=== PATIENT | male | born 1975 | race Caucasian/White ===

== ENCOUNTER → 2022-03-03 16:02 | Outpatient (BNVA) | payer MEDICARE, MEDICAID, OTHER, SELFPAY | PROVIDERS: PCP Internal Medicine; Visit Provider Psychiatry & Neurology Psychiatry | DX: F33.9 Major depressive disorder, recurrent, unspecified (principal); F43.12 Post-traumatic stress disorder, chronic | CPT/HCPCS: 99212 ==

== ENCOUNTER → 2022-04-21 15:27 | Outpatient (BNVA) | payer MEDICARE, MEDICAID, SELFPAY | PROVIDERS: PCP Internal Medicine; Visit Provider Psychiatry & Neurology Psychiatry | DX: Z13.89 Encounter for screening for other disorder (principal) ==

== ENCOUNTER → 2022-05-13 16:09 | Outpatient (BNVA) | payer MEDICARE, MEDICAID, SELFPAY | PROVIDERS: PCP Internal Medicine; Visit Provider Psychiatry & Neurology Psychiatry | DX: F43.12 Post-traumatic stress disorder, chronic (principal); F33.9 Major depressive disorder, recurrent, unspecified | CPT/HCPCS: 90833; Q3014 ==

== ENCOUNTER → 2022-07-01 11:49 | Outpatient (BNVA) | payer MEDICARE, MEDICAID, SELFPAY | PROVIDERS: PCP Student in an Organized Health Care Education/Training Program; Visit Provider Psychiatry & Neurology Psychiatry | DX: F43.12 Post-traumatic stress disorder, chronic (principal); F33.9 Major depressive disorder, recurrent, unspecified; Z63.0 Problems in relationship with spouse or partner; Z86.73 Personal history of transient ischemic attack (TIA), and cerebral infarction without residual deficits; Z79.899 Other long term (current) drug therapy | CPT/HCPCS: Q3014 ==

== ENCOUNTER → 2022-08-06 12:40 | Outpatient (BNVA) | payer MEDICARE, MEDICAID, SELFPAY | PROVIDERS: PCP Student in an Organized Health Care Education/Training Program; Visit Provider Psychiatry & Neurology Psychiatry | DX: F43.12 Post-traumatic stress disorder, chronic (principal) | CPT/HCPCS: Q3014 ==

== ENCOUNTER → 2022-10-08 17:10 | Outpatient (BNVA) | payer MEDICARE, MEDICAID, SELFPAY | PROVIDERS: PCP Student in an Organized Health Care Education/Training Program; Visit Provider Psychiatry & Neurology Psychiatry | DX: F43.12 Post-traumatic stress disorder, chronic (principal); F33.9 Major depressive disorder, recurrent, unspecified | CPT/HCPCS: Q3014 ==

== ENCOUNTER 2022-11-25 17:44 | Outpatient (AMB) | payer MEDICARE, MEDICAID, SELFPAY ==
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
== END 2022-11-25 17:45 | disposition home or self-care (01) ==
LOC: HO.HOP 17:44
PROVIDERS: PCP Student in an Organized Health Care Education/Training Program; Visit Provider Psychiatry & Neurology Psychiatry
DX: F43.12 Post-traumatic stress disorder, chronic (principal); F33.9 Major depressive disorder, recurrent, unspecified
CPT/HCPCS: 90833; 99214

== ENCOUNTER → 2022-11-25 17:44 | Outpatient (BNVA) | payer MEDICARE, MEDICAID, SELFPAY | PROVIDERS: PCP Student in an Organized Health Care Education/Training Program; Visit Provider Psychiatry & Neurology Psychiatry | DX: F43.12 Post-traumatic stress disorder, chronic (principal); F33.9 Major depressive disorder, recurrent, unspecified | CPT/HCPCS: 90833; 99212 ==

== ENCOUNTER 2022-12-09 13:48 | Outpatient (AMB) | payer MEDICARE, MEDICAID, SELFPAY ==
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
== END 2022-12-09 14:00 | disposition home or self-care (01) ==
LOC: HO.HOP 13:49
PROVIDERS: PCP Student in an Organized Health Care Education/Training Program; Visit Provider Psychiatry & Neurology Psychiatry
DX: G89.0 Central pain syndrome (principal); F43.12 Post-traumatic stress disorder, chronic
CPT/HCPCS: 99213

== ENCOUNTER → 2022-12-09 13:48 | Outpatient (BNVA) | payer MEDICARE, MEDICAID, SELFPAY | PROVIDERS: PCP Student in an Organized Health Care Education/Training Program; Visit Provider Psychiatry & Neurology Psychiatry ==

== ENCOUNTER 2022-12-23 05:10 | Outpatient (REF) | payer MEDICARE, MEDICAID, SELFPAY ==
--- NOTE | ~2022-12-23 | XR_ITS ---
EXAMINATION: XR KNEE, RIGHT CLINICAL INFORMATION: Right knee pain COMPARISON: None available. TECHNIQUE: Frontal, lateral and patellar views of the right knee. FINDINGS: A surgical screw and clip transfix a healed fracture of the lateral tibial metaphyseal region. The knee joint is preserved. No acute fracture or subluxation is evident, and there are no significant erosive or proliferative changes. The patellofemoral joint is maintained. There is no significant knee joint effusion. XR/XR knee RT 3V IMPRESSION: 1. Prior surgical transfixation of the proximal lateral tibia. 2. No acute findings otherwise. In particular, there are no significant arthropathic changes in the right knee.
== END 2022-12-23 05:11 | disposition home or self-care (01) ==
LOC: HO.HOSX 05:10
PROVIDERS: Visit Provider Orthopaedic Surgery
DX: S83.241A Other tear of medial meniscus, current injury, right knee, initial encounter (principal); M54.50 Low back pain, unspecified
CPT/HCPCS: 73562; 99202

== ENCOUNTER 2022-12-23 15:00 | Outpatient (AMB) | payer MEDICARE, MEDICAID, SELFPAY ==
--- NOTE | 2022-12-23 15:03 | MHC.OFFVIS ---
Intake Intake Visit Reasons: Medical Diagnostic Radiographer- RT Knee pain Intake Note: Lenin is a 47 year old male who presents today as a new patient for a evaluation for his right knee pain and giving way. The patient describes his pain as sharp and severe in nature. He did injure his knee approximately 2 years ago. He twisted his knee and had acute onset of pain. Since that time his symptoms have gotten worse of continued operative treatments. He has had injections in the past which the minimal relief. He has also done physical therapy which aggravated his pain. The patient did suffer from a stroke which left him with very little function on his left side. He relies on his right leg to get around in a wheelchair. He has tried Tylenol, anti-inflammatory medicines and oxycodone which gave him minimal relief. He states that his right knee will give out several times per day. Allergies dabigatran etexilate Allergy (Intermediate, Verified 12/23/22 15:15) Cough lisinopril Allergy (Intermediate, Verified 12/23/22 15:15) Cough morphine [Morphine] Allergy (Intermediate, Verified 12/23/22 15:15) DIFF.URINATING/VISION PROBLEMS Medication List - Last Reconciled 12/24/22 by Ace Schuler MD amlodipine 5 mg PO DAILY clonazepam 1 mg PO BID duloxetine 60 mg PO DAILY duloxetine 30 mg PO DAILY ezetimibe 10 mg PO DAILY lamotrigine 150 mg PO BID 90 days metoprolol succinate ER 200 mg PO oxycodone 5 mg PO Q12H PRN pantoprazole 40 mg PO BID quetiapine 25 mg PO TID PRN rosuvastatin 40 mg PO DAILY tadalafil 5 mg PO DAILY PFSH Medical History Chronic post-traumatic stress disorder (PTSD) CVA (cerebral vascular accident) Major depression, recurrent, chronic Physical Exam Const Other: Well-nourished well-developed very friendly male awake alert and oriented x3 in no acute distress Extrem Other: Bilateral lower extremity examination shows good capillary refill, no skin lesions noted, normal sensation light touch Right knee examination shows a minimal effusion, mild crepitus with range of motion, tenderness along his medial joint line, positive Dandre's test, no instability Results Reviewed Results Reviewed: X-rays of the patient's right knee show mild diffuse joint space narrowing, no acute bony abnormalities Assessment & Plan Assessment & Plan (1) Low back pain: Code(s): M54.50 - Low back pain, unspecified (2) Tear of medial meniscus of right knee: Code(s): S83.241A - Other tear of medial meniscus, current injury, right knee, initial encounter Plan: Mr. Hardin presents with progressively worsening right knee pain and giving way due to early degenerative joint disease as well as a tear of his medial meniscus and possible tearing of his lateral meniscus. At this point he has failed continued non operative treatments. The risks and benefits of right knee arthroscopic surgery were discussed at length with the patient. The patient wishes to proceed with surgery. He does know that he might not get 100% relief of his symptoms depending on severity of his degenerative changes. He will contact my office to pick a surgery date. Surgery will most likely involve right knee diagnostic arthroscopy with partial medial meniscectomy and possible arthroscopic lateral meniscectomy. I did give the patient 1 prescription for oxycodone as per his request. I will also refer him to our pain management specialists for further evaluation of his chronic low back pain. The patient will follow-up as instructed. Feel free to call me at any time should questions regarding his orthopedic management arise. I spent 22 minutes in reviewing the patient's records and imaging studies, seeing the patient and documenting in the medical record. Orders: Orders XR knee RT 3V 12/23/22 M25.561 - Pain in right knee Referrals Pain Management Referral M54.50 - Low back pain, unspecified Medications: New oxycodone Partial Fill upon patient request. 5 mg PO Q12H PRN 10 tabs 0RF pain Coding Level of Care Code New Pt Level 2 (45960) Diagnoses Low back pain M54.50 Tear of medial meniscus of right knee S83.241A
== END 2022-12-23 15:39 | disposition home or self-care (01) ==
PROVIDERS: PCP Student in an Organized Health Care Education/Training Program; Visit Provider Orthopaedic Surgery
DX: M54.50 Low back pain, unspecified (principal); S83.241A Other tear of medial meniscus, current injury, right knee, initial encounter
CPT/HCPCS: 99202

== ENCOUNTER 2022-12-31 10:03 | Outpatient (AMB) | payer MEDICARE, MEDICAID, SELFPAY ==
--- NOTE | 2022-12-31 10:17 | A.OFFVIS_ITS ---
Intake Vital Signs 12/31/22 10:18 Height 6 ft Weight 265 lb BMI 35.9 BP 130/86 Blood Pressure Location Lt brachial Position Sitting Respiration 18 Pulse 89 Pulse Source Pulse Oximeter Pulse Oximetry (%) 96 Oxygen Delivery Method Room Air Intake Visit Reasons: LOW BACK PAIN Allergies dabigatran etexilate Allergy (Intermediate, Verified 12/31/22 10:11) Cough lisinopril Allergy (Intermediate, Verified 12/31/22 10:11) Cough HPI HPI Comments History of Present Illness Details Lenin is a very pleasant 47 year old male who presents to the office today for evaluation and management of his chronic right lower back pain. Patient was recently evaluated by ortho and sent here for his lower back pain. He is under care at [facility] for this lower back pain, received injections without relief. He was offered opioid contract that he is considering as nothing else is helping his pain. Patient was under the impression that he was referred here for opioid pain medications after recent ortho visit. Patient also reports right elbow and wrist pain, 11/09. 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 Due to this he has developed pain in the right elbow and wrist from wheelchair use. He has received cortisone injections to his elbow a couple months ago that did not help at all. He has completed PT and OT, taken NSAIDs all without relief. Patient has power chair at home but does not use because it's too heavy for him to get into his truck therefore he uses a regular wheelchair. Condition is described as aching, stabbing, shooting and sharp. Pain is constant, worse in evening and middle of the night. It is negatively impacting his enjoyment of life, general activity, normal work, sleep and overall mood. [facility] Medical History Chronic post-traumatic stress disorder (PTSD) CVA (cerebral vascular accident) Major depression, recurrent, chronic Review of Systems Const All systems reviewed & are unremarkable except as noted in HPI and below Physical Exam Vital Signs: Last Vital Signs Pulse 89 12/31/22 10:18 Resp 18 12/31/22 10:18 BP 130/86 12/31/22 10:18 Pulse Ox 96 12/31/22 10:18 Oxygen Delivery Method Room Air 12/31/22 10:18 BMI result Body Mass Index 35.9 General: awake, alert, oriented. Answers questions appropriately. Fully engaged in examination. Skin: warm, dry, intact HEENT: Bilateral hearing aides in place. Cardiac: External chest normal in appearance. Respiratory: No cough, audible wheezing or stridor. Neurological: Oriented to person, place, time and situation. Thought process intact. Psychiatric: Appropriate mood and affect. Back/Spine/Pelvis Other: Lumbar exam: Tenderness to palpation right lower back over QL. Limited exam, patient WC bound with left sided paralysis. 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 Discussed options for treatment of patients lower back pain, he is currently under care at [facility] for this pain and is considering signing an opiate contract. He has not found relief with injections and feels that the percocet he has received occasionally for pain is the only thing that has helped. Patient was advised that our chronic opioid program is currently closed. We discussed neuromodulation with SCS but patient declined. Lengthy discussion with patient that body mechanics of using a regular wheelchair are prohibiting his right arm and right lower back from healing. He is not able to use the left side and can't utilize motorized wheelchair. Patient with overuse of his right arm d/t paralysis of his left side. He has exhausted injections, PT and OT for his right arm and wrist pain. Discussed options for treatment of his central post-stroke pain (CPSP) including diagnostic interventional testing, steroid injections, peripheral nerve stimulation with Sprint, RFA and more permanent neuromodulation. Informational pamphlets provided. Patient was offered C5/6 SCS with [facility] for CPSP. Patient will review brochure and call the office if he would like to proceed with trial. He was given pamphlet for SCS and [facility] for pre implant psych eval. Recent studies have shown the benefit for SCS for CPSP: Benefit of spinal cord stimulation for patients with central poststroke pain: a retrospective multicenter study https://pubmed.ncbi.nlm.nih.gov/70054268/ All questions and concerns have been answered and patient agrees with the plan. Patient will call the office if he wishes to proceed with SCS. Coding Level of Care Code New Pt Level 4 (22593) Diagnoses Right knee pain M25.561 Myofascial low back pain M54.50 Tendonitis of elbow, right M77.8 Central pain syndrome G89.0
[2022-12-31 10:18] VITALS: BP 130/86; PULSE 89; RESP 18; O2SAT 96; BMI 35.9
== END 2022-12-31 11:16 | disposition home or self-care (01) ==
PROVIDERS: PCP Student in an Organized Health Care Education/Training Program; Visit Provider Registered Nurse Emergency
DX: M25.561 Pain in right knee (principal); M54.50 Low back pain, unspecified; M77.8 Other enthesopathies, not elsewhere classified; G89.0 Central pain syndrome
CPT/HCPCS: 99204

== ENCOUNTER → 2022-12-31 10:03 | Outpatient (BNVA) | payer MEDICARE, MEDICAID, SELFPAY | PROVIDERS: PCP Student in an Organized Health Care Education/Training Program; Visit Provider Registered Nurse Emergency | DX: G89.0 Central pain syndrome (principal); M25.561 Pain in right knee; M54.50 Low back pain, unspecified; M77.8 Other enthesopathies, not elsewhere classified | CPT/HCPCS: 99202 ==

== ENCOUNTER 2023-01-12 13:49 | Outpatient (AMB) | payer MEDICARE, MEDICAID, SELFPAY ==
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
== END 2023-01-12 16:23 | disposition home or self-care (01) ==
LOC: HO.HOP 13:49
PROVIDERS: PCP Student in an Organized Health Care Education/Training Program; Visit Provider Psychiatry & Neurology Psychiatry
DX: F43.12 Post-traumatic stress disorder, chronic (principal); F33.1 Major depressive disorder, recurrent, moderate
CPT/HCPCS: 99213

== ENCOUNTER → 2023-01-12 13:49 | Outpatient (BNVA) | payer MEDICARE, MEDICAID, SELFPAY | PROVIDERS: PCP Student in an Organized Health Care Education/Training Program; Visit Provider Psychiatry & Neurology Psychiatry ==

== ENCOUNTER 2023-01-22 05:59 | Day surgery (SDC) | payer MEDICARE, MEDICAID, SELFPAY ==
[2023-01-20 10:48] VITALS: BMI 35.9
--- NOTE | 2023-01-20 14:16 | HO.ANESPROP2 ---
Documented by User: Jeanne Monroy NP 01/21/23 13:10 HPI - Anesthesia Eval Consult details Narrative: 47yo M for Right Knee Arthroscopy, partial menial minosectomy, possible lateral minosectomy DNR Hx CVA - W/C bound, Left sided hemiparesis/muscle spacicity (Baclofen pump) Follows cardiology: Afib (eliquis held). Cardiomyopathy. HTN. Ozempic - last dose 01/17/23 - Rev'd with Dr Jimena LI Active Problems Active Problems: All Active Problems (Updated 01/20/23 @ 11:22 by Dariana Cloud RN) Central pain syndrome (Acute) Tendonitis of elbow, right (Acute) Myofascial low back pain (Acute) Tear of medial meniscus of right knee (Acute) Low back pain (Acute) Right knee pain (Acute) Chronic post-traumatic stress disorder (PTSD) (Acute) Major depression, recurrent, chronic (Acute) Past Medical History Medical History (Updated 01/20/23 @ 11:22 by Dariana Cloud RN) Elevated cholesterol CAD (coronary artery disease) Cerebral embolism Alcohol dependence in remission Cardiomyopathy DVT (deep venous thrombosis) Muscle spasticity Central pain syndrome HTN (hypertension) Atrial fibrillation Sleep apnea Chronic post-traumatic stress disorder (PTSD) Major depression, recurrent, chronic CVA (cerebral vascular accident) Surgical History Surgical History (Updated 01/20/23 @ 11:22 by Dariana Cloud RN) Hx of cardiac catheterization H/O colonoscopy History of carpal tunnel release Hx of nasal septoplasty History of back surgery Social History Social History Are you a primary direct care worker to a significant other at home: No Do you presently have visiting nurse or other home services: No Patient Tobacco Use Status: Former Tobacco user Quit Date: 2019 Tobacco use type: Cigarette Meds Allergies Allergy/AdvReac Type Severity Reaction Status Date / Time dabigatran etexilate Allergy Intermediate Cough Verified 12/31/22 10:11 lisinopril Allergy Intermediate Cough Verified 12/31/22 10:11 Home Medications Medication Instructions Recorded Confirmed Last Taken Type amlodipine 5 mg tablet 5 mg PO DAILY 03/03/22 01/20/23 Unknown History pantoprazole 40 mg tablet,delayed 40 mg PO BID 03/03/22 01/20/23 Unknown History release rosuvastatin 40 mg tablet 40 mg PO DAILY 03/03/22 01/20/23 Unknown History tadalafil 5 mg tablet 5 mg PO DAILY 03/03/22 01/20/23 Unknown History duloxetine 60 mg capsule,delayed 60 mg PO QAM 10/30/22 01/20/23 Unknown History release apixaban 5 mg tablet (Eliquis) 5 mg PO BID 01/20/23 01/20/23 Unknown History duloxetine 30 mg capsule,delayed 30 mg PO QPM 01/20/23 01/20/23 Unknown History release furosemide 20 mg tablet 40 mg PO DAILY 01/20/23 01/20/23 Unknown History metoprolol succinate 200 mg 200 mg PO DAILY 01/20/23 01/20/23 Unknown History tablet,extended release 24 hr semaglutide 0.25 mg or 0.5 mg (2 0.25 mg subcut QWEEK 01/20/23 01/20/23 01/17/23 History mg/3 mL) subcutaneous pen injector (Ozempic) Exam Exam Date and Time: January 20, 2023 1416 Height,Weight and Vital Signs: Height 6 ft Weight 120.202 kg Pertinent Lab Results Pertinent Lab Results: 12/2022 CBC and BMP from outside facility WNL BNP elevated at 532 Narrative Narrative: EKG 08/2022 Afib @ 87 Cardiac cath 08/2022 (false + nuc stress) Right dominant coronary circulation Mild RCA ds Minimal LAD ds Minimal Left circumflex ds Mild CAD ECHO 2020 LA mildly dilated Mild MR Mild dilation of asc aorta @ 38mm in tubular section LV size is nml LV wall thickness is nml LV systolic function mildly reduced LVEF 45-50% Hypokinesis of basal and mid inferoseptal and basal to mid inferior wall Unable to assess diastolic function d/t afib. Assessment and Plan Assessment Anesthesia Assessment: Chart Reviewed Documented by User: Devin Kessler MD 01/21/23 19:08 [facility] Past Medical History Medical History (Updated 01/20/23 @ 11:22 by Dariana Cloud RN) Elevated cholesterol CAD (coronary artery disease) Cerebral embolism Alcohol dependence in remission Cardiomyopathy DVT (deep venous thrombosis) Muscle spasticity Central pain syndrome HTN (hypertension) Atrial fibrillation Sleep apnea Chronic post-traumatic stress disorder (PTSD) Major depression, recurrent, chronic CVA (cerebral vascular accident) Family History Family history of problems with anesthesia: No Surgical History Surgical History (Updated 01/20/23 @ 11:22 by Dariana Cloud RN) Hx of cardiac catheterization H/O colonoscopy History of carpal tunnel release Hx of nasal septoplasty History of back surgery History of Problems with Anesthesia: No Social History Social History Are you a primary direct care worker to a significant other at home: No Do you presently have visiting nurse or other home services: No Patient Tobacco Use Status: Former Tobacco user Quit Date: 2019 Tobacco use type: Cigarette Meds Allergies Allergy/AdvReac Type Severity Reaction Status Date / Time dabigatran etexilate Allergy Intermediate Cough Verified 12/31/22 10:11 lisinopril Allergy Intermediate Cough Verified 12/31/22 10:11 Home Medications Medication Instructions Recorded Confirmed Last Taken Type amlodipine 5 mg tablet 5 mg PO DAILY 03/03/22 01/20/23 Unknown History pantoprazole 40 mg tablet,delayed 40 mg PO BID 03/03/22 01/20/23 Unknown History release rosuvastatin 40 mg tablet 40 mg PO DAILY 03/03/22 01/20/23 Unknown History tadalafil 5 mg tablet 5 mg PO DAILY 03/03/22 01/20/23 Unknown History duloxetine 60 mg capsule,delayed 60 mg PO QAM 10/30/22 01/20/23 Unknown History release apixaban 5 mg tablet (Eliquis) 5 mg PO BID 01/20/23 01/20/23 Unknown History duloxetine 30 mg capsule,delayed 30 mg PO QPM 01/20/23 01/20/23 Unknown History release furosemide 20 mg tablet 40 mg PO DAILY 01/20/23 01/20/23 Unknown History metoprolol succinate 200 mg 200 mg PO DAILY 01/20/23 01/20/23 Unknown History tablet,extended release 24 hr semaglutide 0.25 mg or 0.5 mg (2 0.25 mg subcut QWEEK 01/20/23 01/20/23 01/17/23 History mg/3 mL) subcutaneous pen injector (Ozempic) Exam Airway Mallampati Class: III TM Dist: >3cm Neck ROM: Limited Heart: irreg Lungs: cta Assessment and Plan Assessment Anesthesia Assessment: Anesthesia Plan Discussed Final Anesthetic Review Family History of Problems with Anesthesia: No History of Problems with Anesthesia: No NPO: Yes ASA Class: IV Final Preanesthetic Review: No Changes in Pt Med Stat, Meds/Allgs Chart Reviewed, Consent Obtained/Reviewed and Anes Risks/Benef Reviewed Patient Risk: High Procedure Risk: Intermediate Anesthetic Plan Anesthetic Plan: GA Disposition: Standard PACU
[2023-01-22] VITALS (8 sets, daily range): BP systolic 111–123; BP diastolic 61–74; PULSE 85–114; RESP 16–18; TEMP 36.4–37.5; O2SAT 90–95
[2023-01-22] MEDS: Lactated Ringers 1,000 ML 50 ML IVCONT (06:43)
--- NOTE | 2023-01-22 08:52 | PM.OP ---
Brief Operative Note Date of Service: 01/22/23 Pre-op diagnosis: Right knee medial meniscus tear, right knee lateral meniscus tear, right knee degenerative joint disease, right knee plica syndrome Post-op diagnosis: same Procedure: Right knee diagnostic arthroscopy with right knee arthroscopic partial medial and lateral meniscectomies, right knee arthroscopic chondroplasty of the undersurface of the patella as well as the medial femoral condyle, right knee arthroscopic plica excision Implants: none Surgeon: Ace Schuler MD Anesthesia: GLMA Was an Cell Room Operator used for this Procedure?: No Estimated blood loss (mL): 10 Pathology: none sent Condition: stable Disposition: PACU
[2023-01-22] MEDS: HYDROmorphone HCl 0.5 MG/0.5 ML SYRINGE 0.25 MG IVPUSH ×2 (08:53→08:58)
--- NOTE | 2023-01-22 08:54 | PM.PNORT ---
Subjective Subjective Date of Service: 02/23/23 Physical Exam Vital Signs: Vital Signs: Last Vital Signs Temp 97.6 F 01/22/23 06:27 Pulse 85 01/22/23 06:27 Resp 16 01/22/23 06:27 BP 119/68 01/22/23 06:27 Pulse Ox 93 01/22/23 06:27 O2 Del Method Room Air 01/22/23 06:27 BMI result Body Mass Index 35.9 Procedures Date of Service Date of Service: 02/23/23 Progress Note: A&P Time Spent With Patient Time: Total time managing care of this patient today ____ minutes. Quality Stroke Does the patient have a stroke diagnosis?: No VTE Prior VTE?: No VTE Risk Level:: Surgical - low VTE Device Contraindication: Treatment Not Indicated VTE Drug Contraindication: Treatment Not Indicated
--- NOTE | 2023-01-22 08:55 | W.PM.OPN ---
Operative Note Operative Note Date of Service: 01/22/23 Narrative: After the patient was identified as Lenin Hardin and their right knee was initialed by myself they were brought to the operating room where general anesthesia was induced by the anesthesiologist in routine fashion. The patient was given 2 g of IV Ancef for infection prophylaxis. A formal time-out was completed. The patient's right lower extremity was prepped and draped in sterile fashion. Marcaine with epinephrine was injected into the planned incision sites as well as their left knee joint. A # 11 scalpel blade was used to make an anterolateral portal 1 cm proximal to the joint line and 1 cm lateral to the patellar tendon. Blunt trocar technique was used into the suprapatellar pouch with the knee in extension. Diagnostic arthroscopy showed multiple bands of thickened plica which would be excised at the end of the procedure. There were no loose bodies or abnormalities found in either the medial or lateral gutters. There were diffuse grade 2 degenerative changes of the undersurface of the patella as well as grade 1 degenerative changes of the trochlear groove. The patient's knee was flexed to 45 degrees and a valgus force was placed upon it. The medial compartment was entered. An anteromedial portal was made 1 cm proximal to the joint line and 1 cm medial to the patellar tendon. Probing of the medial meniscus showed a radial tear of the posterior horn. A partial medial meniscectomy was performed using the arthroscopic shaver. Following the partial meniscectomy the remainder of the meniscus tissue was stable. There were diffuse grades 2 and 3 degenerative changes of the medial femoral condyle as well as diffuse grades bone degenerative changes of the medial tibial plateau. The articular surface of the medial femoral condyle was made smooth using the arthroscopic shaver. The articular surface of the medial tibial plateau was already smooth so no chondroplasty was indicated. The patient's knee was then placed into a neutral position. There was no injury to the anterior cruciate ligament. The patient's knee was then placed into the figure of 4 position and the lateral compartment was entered. There were minimal degenerative changes of the lateral femoral condyle and lateral tibial plateau. There was a radial tear of the anterior horn of the lateral meniscus. Thus, a partial lateral meniscectomy was performed using the arthroscopic shaver. Following the partial meniscectomy the remainder of the meniscus tissue was stable. The patient's knee was once again brought into extension and the suprapatellar pouch was entered. The arthroscopic shaver and the ArthroCare Wand were used to excise the thickened bands of plica. The undersurface of the patella was then made smooth using the arthroscopic shaver. The articular surface of the trochlear groove was already smooth so no chondroplasty was indicated. The knee joint was irrigated and then drained. All arthroscopic instruments were removed. The 2 portals were closed with 3-0 nylon interrupted suture. The knee joint was injected with Marcaine. Dry sterile dressing and Jayden bandages were placed over the patient's knee. The patient was woken and expand the operating room. They were transferred to the recovery room in stable condition.
[2023-01-22] MEDS: cefTRIAXone sodium 1 GM in 0.9 % Sodium Chloride 50 ML IV (09:00)
[2023-01-22] MEDS: oxyCODONE HCl Immed Release 5 MG TABLET PO (09:33)
== END 2023-01-22 09:55 | disposition home or self-care (01) ==
PROVIDERS: PCP Student in an Organized Health Care Education/Training Program; Visit Provider Orthopaedic Surgery
PROC: (CPT 29870; principal; 2023-01-22 07:30)
DX: S83.241A Other tear of medial meniscus, current injury, right knee, initial encounter (principal); S83.281A Other tear of lateral meniscus, current injury, right knee, initial encounter; M25.561 Pain in right knee; M17.11 Unilateral primary osteoarthritis, right knee; M67.51 Plica syndrome, right knee; W50.2XXA Accidental twist by another person, initial encounter; Y93.9 Activity, unspecified; Y92.9 Unspecified place or not applicable; Y99.8 Other external cause status; I69.354 Hemiplegia and hemiparesis following cerebral infarction affecting left non-dominant side; I42.9 Cardiomyopathy, unspecified; I10 Essential (primary) hypertension; I48.91 Unspecified atrial fibrillation; F43.10 Post-traumatic stress disorder, unspecified; M54.50 Low back pain, unspecified; F32.9 Major depressive disorder, single episode, unspecified; G47.33 Obstructive sleep apnea (adult) (pediatric); Z99.3 Dependence on wheelchair; Z87.891 Personal history of nicotine dependence; Z88.8 Allergy status to other drugs, medicaments and biological substances; Z88.5 Allergy status to narcotic agent; Z79.01 Long term (current) use of anticoagulants; Z79.899 Other long term (current) drug therapy
CPT/HCPCS: 29880; J0131; J0171; J0690; J0696; J1100; J1170; J1885; J2371; J2405; J2795

== ENCOUNTER → 2023-01-22 05:59 | Outpatient (BNV) | payer MEDICARE, MEDICAID, SELFPAY | PROVIDERS: PCP Student in an Organized Health Care Education/Training Program; Visit Provider Orthopaedic Surgery | DX: Z48.89 Encounter for other specified surgical aftercare (principal) | CPT/HCPCS: 29880; 99024 ==

== ENCOUNTER 2023-02-04 09:33 | Outpatient (AMB) | payer MEDICARE, MEDICAID, SELFPAY ==
--- NOTE | 2023-02-04 09:41 | MHC.OFFVIS ---
Intake Intake Visit Reasons: PO-Rt Knee Arthroscopy 01/22/23 Intake Note: Lenin a 47 year old male who presents today in a wheelchair for a post operative visit s/p right knee , DOS 01/22/23 Patient reports constant pain, with a pain level 8 out 10. States a lot of bleeding in the beginning but has subsided. Allergies dabigatran etexilate Allergy (Intermediate, Verified 02/04/23 09:48) Cough lisinopril Allergy (Intermediate, Verified 02/04/23 09:48) Cough HPI PO-Rt Knee Arthroscopy 01/22/23 HPI Details 47-year-old male who returns to the office today in a wheelchair for post-op right knee , 01/22/[address] Schuler. He states he has constant pain and rates the pain as 8 on the scale of 0-10. He also c/o a lot of bleeding in the beginning but has now subsided. He is doing well otherwise and has no other concerns. [facility] Medical History Elevated cholesterol CAD (coronary artery disease) Cerebral embolism Alcohol dependence in remission Cardiomyopathy DVT (deep venous thrombosis) Muscle spasticity Central pain syndrome HTN (hypertension) Atrial fibrillation Sleep apnea Chronic post-traumatic stress disorder (PTSD) Major depression, recurrent, chronic CVA (cerebral vascular accident) Surgical History Hx of cardiac catheterization H/O colonoscopy History of carpal tunnel release Hx of nasal septoplasty History of back surgery Social History Are you a primary customer care specialist to a significant other at home: No Do you presently have visiting nurse or other home services: No Patient Tobacco Use Status: Former Tobacco user Quit Date: 2019 Tobacco use type: Cigarette Review of Systems Const All systems reviewed & are unremarkable except as noted in HPI and below Physical Exam Extrem Other: Right knee: Incision clean, dry and intact. No erythema or joint effusion. Rom 0-100 degrees. Calf supple, nontender. NVI. Assessment & Plan Assessment & Plan (1) H/O arthroscopy of right knee: Code(s): Z98.890 - Other specified postprocedural states Plan Sutures removed today, steri strips applied. He will work on some home exercises to maintain his motion and activate his quad function. He is unable to take anti-inflammatories such as ibuprofen because he is on Eliquis. I did recommend Celebrex however he states he has tried it in the past with no relief. I did offer him a compound cream which we will submit authorization for. He did also request a prescription for refilled oxycodone which I agreed to refill this 1 tab twice a day which will be a one-time prescription and explained to him the wean process which he is content with. He will return to see us back in [address] Schuler for his routine post-op appointment. Medications: Changed From oxycodone Partial Fill upon patient request. 5 mg PO Q6H PRN 20 tabs 0RF pain Z98.890 - Other specified postprocedural states To oxycodone Partial Fill upon patient request. 5 mg PO Q12H PRN 14 tabs 0RF pain 7 days Z98.890 - Other specified postprocedural states Patient Instructions: Scribed for Sid Boles PA-C, by Mat Torrez medical transcription supervisor, on 02/04/2023 at 9:30 AM EST. I, Sid Boles PA-C, have personally reviewed and agree with the information entered by the scribe. Coding Level of Care Code Global (35511) Diagnoses H/O arthroscopy of right knee Z98.890
== END 2023-02-04 10:16 | disposition home or self-care (01) ==
PROVIDERS: PCP Student in an Organized Health Care Education/Training Program; Visit Provider Physician Assistant
DX: Z98.890 Other specified postprocedural states (principal)
CPT/HCPCS: 99024

== ENCOUNTER → 2023-02-04 09:33 | Outpatient (BNVA) | payer MEDICARE, MEDICAID, SELFPAY | PROVIDERS: PCP Student in an Organized Health Care Education/Training Program; Visit Provider Physician Assistant ==

== ENCOUNTER 2023-02-24 12:22 | Outpatient (AMB) | payer MEDICARE, MEDICAID, SELFPAY ==
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
== END 2023-02-24 16:16 | disposition home or self-care (01) ==
LOC: HO.HOP 12:22
PROVIDERS: PCP Student in an Organized Health Care Education/Training Program; Visit Provider Psychiatry & Neurology Psychiatry
DX: F33.1 Major depressive disorder, recurrent, moderate (principal); F43.12 Post-traumatic stress disorder, chronic
CPT/HCPCS: 99213

== ENCOUNTER → 2023-02-24 12:22 | Outpatient (BNVA) | payer MEDICARE, MEDICAID, SELFPAY | PROVIDERS: PCP Student in an Organized Health Care Education/Training Program; Visit Provider Psychiatry & Neurology Psychiatry ==

== ENCOUNTER 2023-03-04 10:11 | Outpatient (AMB) | payer MEDICARE, MEDICAID, SELFPAY ==
--- NOTE | 2023-03-04 10:13 | MHC.OFFVIS ---
Intake Intake Visit Reasons: PO-Rt Knee Arthroscopy 01/22/23 Intake Note: This is a 47 year old patient who presents for a follow up for his right knee arthrocscopy on 01/22/23. Patient reports mild to moderate discomfort in his right knee. He denies any fevers or chills. Allergies dabigatran etexilate Allergy (Intermediate, Verified 03/04/23 10:17) Cough lisinopril Allergy (Intermediate, Verified 03/04/23 10:17) Cough Medication List - Last Reconciled 03/04/23 by Tati Villatoro RN amlodipine 5 mg PO DAILY apixaban (Eliquis) 5 mg PO BID clonazepam 1 mg PO BID duloxetine 60 mg PO QAM duloxetine 20 mg PO DAILY ezetimibe 10 mg PO DAILY furosemide 40 mg PO DAILY hydroxyzine HCl 25 mg PO BEDTIME PRN lamotrigine 150 mg PO BID 90 days metoprolol succinate ER 200 mg PO DAILY oxycodone 5 mg PO Q12H PRN 7 days pantoprazole 40 mg PO BID rosuvastatin 40 mg PO DAILY semaglutide (Ozempic) 0.25 mg subcut QWEEK tadalafil 5 mg PO DAILY PFSH Medical History (Updated 03/04/23 @ 10:41 by Ace Schuler MD) Elevated cholesterol CAD (coronary artery disease) Cerebral embolism Alcohol dependence in remission Cardiomyopathy DVT (deep venous thrombosis) Muscle spasticity Central pain syndrome HTN (hypertension) Atrial fibrillation Sleep apnea Chronic post-traumatic stress disorder (PTSD) Major depression, recurrent, chronic CVA (cerebral vascular accident) Surgical History Hx of cardiac catheterization H/O colonoscopy History of carpal tunnel release Hx of nasal septoplasty History of back surgery Social History Are you a primary child care associate teacher to a significant other at home: No Do you presently have visiting nurse or other home services: No Patient Tobacco Use Status: Former Tobacco user Quit Date: 2019 Tobacco use type: Cigarette Physical Exam Extrem Other: Right knee examination shows that the surgical incisions are well healed, no erythema, mild crepitus with range of motion, no instability Assessment & Plan Assessment & Plan (1) Arthritis of right knee: Code(s): M17.11 - Unilateral primary osteoarthritis, right knee Plan Mr. Hardin is doing fairly well after undergoing right knee arthroscopic surgery on 01/22/2023. He does have residual discomfort due to degenerative joint disease. The patient will continue activities as tolerated. He will contact me prior to his follow-up appointment in 2-3 months should any questions or concerns arise. Feel free to call me at any time should questions regarding his orthopedic management arise. Coding Level of Care Code Global (90175) Diagnoses Arthritis of right knee M17.11
== END 2023-03-04 10:40 | disposition home or self-care (01) ==
PROVIDERS: PCP Student in an Organized Health Care Education/Training Program; Visit Provider Orthopaedic Surgery
DX: M17.11 Unilateral primary osteoarthritis, right knee (principal)
CPT/HCPCS: 99024

== ENCOUNTER → 2023-03-04 10:11 | Outpatient (BNVA) | payer MEDICARE, MEDICAID, SELFPAY | PROVIDERS: PCP Student in an Organized Health Care Education/Training Program; Visit Provider Orthopaedic Surgery ==

== ENCOUNTER 2023-04-06 11:54 | Outpatient (AMB) | payer MEDICARE, MEDICAID, SELFPAY ==
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
== END 2023-04-06 12:26 | disposition home or self-care (01) ==
LOC: HO.HOP 11:54
PROVIDERS: PCP Student in an Organized Health Care Education/Training Program; Visit Provider Psychiatry & Neurology Psychiatry
DX: F33.1 Major depressive disorder, recurrent, moderate (principal); F43.12 Post-traumatic stress disorder, chronic
CPT/HCPCS: 99213

== ENCOUNTER → 2023-04-06 11:54 | Outpatient (BNVA) | payer MEDICARE, MEDICAID, SELFPAY | PROVIDERS: PCP Student in an Organized Health Care Education/Training Program; Visit Provider Psychiatry & Neurology Psychiatry | DX: F43.12 Post-traumatic stress disorder, chronic (principal); F33.9 Major depressive disorder, recurrent, unspecified | CPT/HCPCS: 99212 ==

== ENCOUNTER 2023-05-11 09:01 | Outpatient (AMB) | payer MEDICARE, MEDICAID, SELFPAY ==
--- NOTE | 2023-05-11 09:09 | MHC.OFFVIS ---
Intake Vital Signs 05/11/23 09:19 Height 6 ft Weight 245 lb BMI 33.2 Intake Visit Reasons: Newprob-Right wrist pain Intake Note: Lenin 47 yr old male presents today for a new problem visit for his right wrist pain. States his pain is mainly on his dorsum aspect of wrist. Reports this started approx around 10 years ago due to over use of wrist. States he also has on and off numbness & tingling Denies injury. Also states he has right elbow pain and would like an injection. hx of elbow injection about 1 year ago with no improvement. Hx of brain aneurysm on his left side. Allergies dabigatran etexilate Allergy (Intermediate, Verified 05/11/23 09:10) Cough lisinopril Allergy (Intermediate, Verified 05/11/23 09:10) Cough HPI Newprob-Right wrist pain HPI Details Migue is a 47 year old right hand dominant man who presents with complaints of right wrist & elbow pain. He is seen today in a wheelchair. He reports pain with use of his right arm, worse at night. He says his wrist pain is primarily in the back of his wrist. He has a hx of a brain aneurysm in 2012, resulting in LUE paralysis & LLE weakness, and he says his pain has been present since his injury due to overuse of his arm in his wheelchair. He found no relief from PT, OT, or NSAIDs, and no relief from an elbow steroid injection at an outside clinic ~1 year ago. He also complains of numbness in the right median nerve distribution, and normal sensation to the small finger. He has a hx of right carpal & cubital tunnel releases in 04/2022 at an outside clinic, which he says improved his nighttime symptoms but he continues to have constant numbness. He is on Eliquis and Ozempic. He denies any Diabetes, and has a hx of CAD & Afib. He has no voluntary motion of his left arm. [facility] Medical History (Updated 05/11/23 @ 10:12 by Luther Mane) Elevated cholesterol CAD (coronary artery disease) Cerebral embolism Alcohol dependence in remission Cardiomyopathy DVT (deep venous thrombosis) Muscle spasticity Central pain syndrome HTN (hypertension) Atrial fibrillation Sleep apnea Chronic post-traumatic stress disorder (PTSD) Major depression, recurrent, chronic CVA (cerebral vascular accident) Surgical History Hx of cardiac catheterization H/O colonoscopy History of carpal tunnel release Hx of nasal septoplasty History of back surgery Social History (Updated 05/11/23 @ 09:19 by JANE Antunez) Are you a primary director medicare sales to a significant other at home: No Do you presently have visiting nurse or other home services: No Patient Tobacco Use Status: Former Tobacco user Quit Date: 2019 Tobacco use type: Cigarette Current occupational status: disabled Current occupation: rt hand dominant Review of Systems Const All systems reviewed & are unremarkable except as noted in HPI and below Physical Exam Vital Signs: BMI result Body Mass Index 33.2 Const General: cooperative, healthy appearing and no acute distress Orientation/consciousness: patient oriented x3 HEENT Head: Yes normocephalic and Yes atraumatic Eyes EOM: EOMs intact bilaterally Resp Effort & Inspection: normal respiratory effort and able to speak in complete sentences Cardio Jugular venous distension: no JVD Skin General skin exam: turgor normal Rashes: no rashes Neuro General: patient oriented x3 Extrem Other: Evaluation of Right Upper Extremity: The patient is alert, oriented, and in no acute distress He is seen today with his LUE held with his elbow flexed and arm against body, no use even as a helper hand. He denies any voluntary motion of his left hand. Neuro: Dense numbness in the median nerve distribution. Normal sensation in the ulnar nerve distribution Good ABP muscle belly firing, no thenar or intrinsic atrophy Good finger cross Healed carpal tunnel scar across his palm Vascular: Cap refill brisk ROM: He can make a fist and extend all his digits No locking or catching No a1 hawa tenderness No tenderness about the thumb IP, MCP, or CMC joints No tenderness over the 1st dorsal compartment On examination, he did not identify any place of particular tenderness, his main complaint is of pain in the dorsal central aspect of his wrist He has some generalized arthritic changes in the IP joints of his right hand Skin: No lacerations or abrasions. General: No Ecchymosis. No wrist swelling or effusion or warmth No Erythema or evidence of infection. Not particularly painful with resisted extension of all of the fingers. Mildly painful with resisted extension of the thumb but this was more radially and not over the dorsal central aspect of the wrist where he saying most of his pain resides. He did have some wrist discomfort with resisted wrist extension, however the ECRL and ECRB tendons were nontender as was the ECU tendon and his discomfort was again over the dorsal central aspect of the wrist in line with the finger extensors Again most tender over the dorsal central aspect of the wrist directly over the finger extensors. He did have some tenderness a little more proximally over the distal aspect of the distal radius but another cm proximally and he had no tenderness so it is not clear whether this is actually and inflammation of the finger extensors, or perhaps the wrist joint. With regards to the joint he was not particularly tender however over the more radial aspect of the wrist joint at the radioscaphoid joint near the radial styloid where we saw some of his arthritis radiographically. No tenderness at all over the dorsal ulnar or volar aspect of the ulnocarpal joint No tenderness in the fovea and no tenderness over the DRUJ which was stable. Radiographs: 3 views of the right wrist were taken and viewed by me today in clinic. They show no fractures or dislocations. He has some radial carpal arthritis with some peaking of the radial styloid and some chondrocalcinosis also seen in that area. Psych Appearance: grossly normal Affect: normal affect Attitude: cooperative Office Procedures Fracture Care Details: No fracture, injection Fracture Billing Code: Fracture Billing Code Assessment & Plan Assessment & Plan (1) Chronic post-traumatic stress disorder (PTSD): Code(s): F43.12 - Post-traumatic stress disorder, chronic (2) History of cerebral embolism: Code(s): Z86.79 - Personal history of other diseases of the circulatory system (3) Chronic pain of right wrist: Code(s): M25.531 - Pain in right wrist; G89.29 - Other chronic pain Plan Assessment & Plan: 1. Right dorsal central wrist pain, Possibly related to wrist & finger extensor tendinitis vs inflammation in the wrist joint This is a patient who has no function of his left upper extremity secondary to a brain aneurysm. He is also in a wheelchair and has to use his right upper extremity to manipulate the wheelchair I educated him about this condition I discussed operative and non-operative treatment options The patient would like to proceed with an injection today I discussed activity modification & icing, he should try and rest his wrist when possible, but this is unlikely as he is in a wheelchair and he has no use of his LUE. Injection #1: The risks and benefits of a steroid injection including but not limited to risk of damage to blood vessels, nerves, tendons, infection, skin bleaching, failure to improve symptoms, increased pain, and possible need for further injections or other intervention were discussed with the patient and the patient wishes to proceed with the steroid injection. Once consent was obtained, I sterilely prepped the area over the dorsal aspect of his left wrist. I then injected about the 4th dorsal compartment tendons with a combination of 1 mL of dexamethasone (4mg/ml), and 2mL Bupivacaine. I did not go into the wrist joint itself. The patient tolerated the procedure well with no complications and good resolution of their symptoms prior to leaving clinic. Based on the success of improvement in his symptoms I do not think it is the wrist joint that is causing his problems. I think it is most likely a tendinitis, and most likely of the 4th dorsal compartment tendons. We cannot give him a brace because he really can not put or take it off. He evidently is involved in multiple projects at home. I talked about the importance of activity modification and perhaps modifying his activities around these projects so that he does not overdo it. I explained to be difficult for him to get over his tendinitis if he does not change some things, and pointed out that is important that he is able to use his right hand take care of himself because he does not have a helper hand. Please note that greater than 40 minutes was spent with this patient going over the history, evaluating the patient and radiographs, formulating possible treatment options, discussing them with the patient, and documenting the visit. Scribed for Kalli Armando MD by Luther Mane, medical office technologist, on 05/11/23 at 9:30 AM, EST. Orders: Orders XR wrist RT w scaphoid Today M25.531 - Pain in right wrist Coding Level of Care Code New Pt Level 4 (37115) Diagnoses Chronic post-traumatic stress disorder (PTSD) F43.12 History of cerebral embolism Z86.79 Chronic pain of right wrist M25.531; G89.29 CPT Codes Fracture Care - Fracture Billing Code: Fracture Billing Code ([id number])
[2023-05-11 09:19] VITALS: BMI 33.2
== END 2023-05-11 10:28 | disposition home or self-care (01) ==
PROVIDERS: PCP Student in an Organized Health Care Education/Training Program; Visit Provider Orthopaedic Surgery
DX: M25.531 Pain in right wrist (principal); M25.521 Pain in right elbow; G89.29 Other chronic pain; F43.12 Post-traumatic stress disorder, chronic; Z86.79 Personal history of other diseases of the circulatory system
CPT/HCPCS: 20550; 99215

== ENCOUNTER 2023-05-11 09:01 | Outpatient (REF) | payer MEDICARE, MEDICAID, SELFPAY ==
--- NOTE | ~2023-05-11 | XR_ITS ---
EXAMINATION: XR WRIST, RIGHT CLINICAL INFORMATION: Pain. COMPARISON: None available. TECHNIQUE: PA, lateral, and oblique views of the right wrist. FINDINGS: The bones and soft tissues are normal. No fracture. A small well-corticated benign cyst is incidentally noted within the distal scaphoid. Alignment is anatomic with normal joint spaces. No erosions or abnormal soft tissue calcifications. XR/XR wrist RT w scaphoid IMPRESSION: Unremarkable right wrist.
== END 2023-05-11 09:02 | disposition home or self-care (01) ==
LOC: HO.HOSX 09:01
PROVIDERS: PCP Student in an Organized Health Care Education/Training Program; Visit Provider Orthopaedic Surgery
DX: M25.531 Pain in right wrist (principal); G89.29 Other chronic pain; Z79.01 Long term (current) use of anticoagulants; Z86.79 Personal history of other diseases of the circulatory system; Z79.899 Other long term (current) drug therapy
CPT/HCPCS: 20550; 73110; 99212; J0665; J1100

== ENCOUNTER 2023-06-14 14:13 | Outpatient (AMB) | payer MEDICARE, MEDICAID, SELFPAY ==
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
== END 2023-06-14 14:16 | disposition home or self-care (01) ==
LOC: HO.HOP 14:13
PROVIDERS: PCP Student in an Organized Health Care Education/Training Program; Visit Provider Psychiatry & Neurology Psychiatry
DX: F33.1 Major depressive disorder, recurrent, moderate (principal); F43.12 Post-traumatic stress disorder, chronic
CPT/HCPCS: 99214

== ENCOUNTER → 2023-06-14 14:13 | Outpatient (BNVA) | payer MEDICARE, MEDICAID, SELFPAY | PROVIDERS: PCP Student in an Organized Health Care Education/Training Program; Visit Provider Psychiatry & Neurology Psychiatry ==

== ENCOUNTER 2023-08-24 15:16 | Outpatient (AMB) | payer MEDICARE, MEDICAID, SELFPAY ==
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
== END 2023-08-24 15:17 | disposition home or self-care (01) ==
LOC: HO.HOP 15:16
PROVIDERS: PCP Student in an Organized Health Care Education/Training Program; Visit Provider Psychiatry & Neurology Psychiatry
DX: F43.12 Post-traumatic stress disorder, chronic (principal)
CPT/HCPCS: 99213

== ENCOUNTER → 2023-08-24 15:16 | Outpatient (BNVA) | payer MEDICARE, MEDICAID, SELFPAY | PROVIDERS: PCP Student in an Organized Health Care Education/Training Program; Visit Provider Psychiatry & Neurology Psychiatry ==

== ENCOUNTER 2023-09-01 08:45 | Outpatient (AMB) | payer MEDICARE, MEDICAID, SELFPAY ==
[2023-09-01 08:48] VITALS: BMI 33.2
--- NOTE | 2023-09-01 08:48 | MHC.OFFVIS ---
Vital Signs 09/01/23 08:48 Height 6 ft Weight 245 lb BMI 33.2 Intake Visit Reasons: OV - Rt Knee 01/22/23 DR (follow up) Intake Note: Lenin is a 48 year old Male who presents for a follow up after his Right knee on 01/23/2024. The patient reports mild to moderate discomfort in his right knee. He also reports a ?crunching sensation?. He denies any fevers or chills. He has had cortisone injections in the past. The most recent injection gave him minimal relief. Allergies dabigatran etexilate Allergy (Intermediate, Verified 09/01/23 08:49) Cough lisinopril Allergy (Intermediate, Verified 09/01/23 08:49) Cough Medication List - Last Reconciled 09/02/23 by Ace Schuler MD amlodipine 5 mg PO DAILY apixaban (Eliquis) 5 mg PO BID clonazepam 1 mg PO BID clonazepam 0.25 mg PO DAILY doxepin 10 - 20 mg (1 - 2 x 10 mg) PO BEDTIME PRN duloxetine 60 mg PO DAILY ezetimibe 10 mg PO DAILY furosemide 40 mg PO DAILY hydroxyzine HCl 25 mg PO BEDTIME PRN lamotrigine 150 mg PO BID 90 days melatonin ER (Meladox) 3 mg PO BEDTIME metoprolol succinate ER 200 mg PO DAILY pantoprazole 40 mg PO BID rosuvastatin 40 mg PO DAILY semaglutide (Ozempic) 0.25 mg subcut QWEEK tadalafil 5 mg PO DAILY [facility] Medical History Elevated cholesterol CAD (coronary artery disease) Cerebral embolism Alcohol dependence in remission Cardiomyopathy DVT (deep venous thrombosis) Muscle spasticity Central pain syndrome HTN (hypertension) Atrial fibrillation Sleep apnea Chronic post-traumatic stress disorder (PTSD) Major depression, recurrent, chronic CVA (cerebral vascular accident) Surgical History Hx of cardiac catheterization H/O colonoscopy History of carpal tunnel release Hx of nasal septoplasty History of back surgery Social History Are you a primary career coach to a significant other at home: No Do you presently have visiting nurse or other home services: No Patient Tobacco Use Status: Former Tobacco user Quit Date: 2019 Tobacco use type: Cigarette Current occupational status: disabled Current occupation: rt hand dominant Physical Exam Vital Signs: BMI result Body Mass Index 33.2 Const Other: Well-nourished well-developed very friendly male awake alert and oriented x3 in no acute distress Extrem Other: Right knee examination shows that the surgical incisions are well healed, no erythema, palpable crepitus with range of motion, no instability Assessment & Plan Assessment & Plan (1) Arthritis of right knee: Code(s): M17.11 - Unilateral primary osteoarthritis, right knee Category: Medical Plan Mr. Hardin presents with right knee pain due to degenerative joint disease. I had a lengthy discussion with the patient regarding the treatment options. He wishes to hold off on further surgery for as long as possible. I agree with this plan. Has not gotten good relief from cortisone injections in the past. Thus, I will see whether or not his insurance company will cover a viscosupplementation injection. I will see him back once the injection is available. Feel free to call me at any time should questions regarding his orthopedic management arise. I spent 20 minutes in reviewing the patient's records and imaging studies, seeing the patient and documenting in the medical record. Coding Level of Care Code Est Pt Level 3 (98436) Diagnoses Arthritis of right knee M17.11
== END 2023-09-01 09:24 | disposition home or self-care (01) ==
PROVIDERS: PCP Student in an Organized Health Care Education/Training Program; Visit Provider Orthopaedic Surgery
DX: M17.11 Unilateral primary osteoarthritis, right knee (principal)
CPT/HCPCS: 99213

== ENCOUNTER → 2023-09-01 08:45 | Outpatient (BNVA) | payer MEDICARE, MEDICAID, SELFPAY | PROVIDERS: PCP Student in an Organized Health Care Education/Training Program; Visit Provider Orthopaedic Surgery | DX: M17.11 Unilateral primary osteoarthritis, right knee (principal) | CPT/HCPCS: 99212 ==

== ENCOUNTER 2023-09-02 11:23 | Outpatient (AMB) | payer MEDICARE, MEDICAID, SELFPAY ==
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
== END 2023-09-02 13:32 | disposition home or self-care (01) ==
LOC: HO.HOP 11:23
PROVIDERS: PCP Student in an Organized Health Care Education/Training Program; Visit Provider Psychiatry & Neurology Psychiatry
DX: F43.12 Post-traumatic stress disorder, chronic (principal)
CPT/HCPCS: 99214

== ENCOUNTER → 2023-09-02 11:23 | Outpatient (BNVA) | payer MEDICARE, MEDICAID, SELFPAY | PROVIDERS: PCP Student in an Organized Health Care Education/Training Program; Visit Provider Psychiatry & Neurology Psychiatry | DX: F43.12 Post-traumatic stress disorder, chronic (principal) | CPT/HCPCS: 99212 ==

== ENCOUNTER 2023-11-29 16:52 | Outpatient (AMB) | payer MEDICARE, MEDICAID, SELFPAY ==
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
== END 2023-11-29 16:53 | disposition home or self-care (01) ==
LOC: HO.HOP 16:53
PROVIDERS: PCP Student in an Organized Health Care Education/Training Program; Visit Provider Psychiatry & Neurology Psychiatry
DX: F43.12 Post-traumatic stress disorder, chronic (principal); F33.9 Major depressive disorder, recurrent, unspecified
CPT/HCPCS: 99214

== ENCOUNTER → 2023-11-29 16:52 | Outpatient (BNVA) | payer MEDICARE, MEDICAID, SELFPAY | PROVIDERS: PCP Student in an Organized Health Care Education/Training Program; Visit Provider Psychiatry & Neurology Psychiatry ==

== ENCOUNTER 2024-02-17 09:26 | Outpatient (AMB) | payer MEDICARE, MEDICAID, SELFPAY ==
[2024-02-17 09:30] VITALS: BMI 33.2
--- NOTE | 2024-02-17 09:30 | A.OFFVIS_ITS ---
Vital Signs 02/17/24 09:30 Height 6 ft Weight 245 lb BMI 33.2 Intake Visit Reasons: Right knee pain and giving way Intake Note: Lenin is a 48 year old male who presents with complaints of progressively worsening right knee pain and giving way. The patient did undergo right knee arthroscopic surgery on 01/22/2023. He got very good relief from that surgery initially. The patient did suffer a stroke and has no active use of his left arm or left leg. Thus, he must use his right leg for all of his wheelchair mobility and pivoting. The patient states that approximately 6 months ago he twisted his right knee and had acute onset of pain. Since that time his symptoms have gotten worse in spite of continued non operative treatments. He has had cortisone injections in the past which gave him no relief. Has also done physical therapy exercises which aggravated his pain. He has tried Tylenol and anti-inflammatory medicines which gave him minimal relief. He states that his right knee will give out several times per day. Allergies dabigatran etexilate Allergy (Intermediate, Verified 02/17/24 09:35) Cough lisinopril Allergy (Intermediate, Verified 02/17/24 09:35) Cough Medication List - Last Reconciled 02/17/24 by Ace Schuler MD amlodipine 5 mg PO DAILY apixaban (Eliquis) 5 mg PO BID clonazepam 0.25 mg PO DAILY clonazepam 1 mg (2 x 0.5 mg) PO BID 30 days doxepin 10 mg PO BEDTIME PRN duloxetine 60 mg PO DAILY ezetimibe 10 mg PO DAILY finasteride 5 mg PO DAILY furosemide 40 mg PO DAILY lamotrigine 150 mg PO BID 90 days metoprolol succinate ER 200 mg PO DAILY pantoprazole 40 mg PO BID rosuvastatin 40 mg PO DAILY semaglutide (Ozempic) 0.25 mg subcut QWEEK tadalafil 5 mg PO DAILY [facility] Medical History Elevated cholesterol CAD (coronary artery disease) Cerebral embolism Alcohol dependence in remission Cardiomyopathy DVT (deep venous thrombosis) Muscle spasticity Central pain syndrome HTN (hypertension) Atrial fibrillation Sleep apnea Chronic post-traumatic stress disorder (PTSD) Major depression, recurrent, chronic CVA (cerebral vascular accident) Surgical History Hx of cardiac catheterization H/O colonoscopy History of carpal tunnel release Hx of nasal septoplasty History of back surgery Social History Are you a primary pet care technician to a significant other at home: No Do you presently have visiting nurse or other home services: No Patient Tobacco Use Status: Former Tobacco user Tobacco use type: Cigarette Current occupational status: disabled Current occupation: rt hand dominant Physical Exam Vital Signs: BMI result Body Mass Index 33.2 Const Other: Well-nourished well-developed very friendly male awake alert and oriented x3 in no acute distress Extrem Other: Bilateral lower extremity examination shows good capillary refill, no skin lesions noted, normal sensation light touch Right knee examination shows a minimal effusion, mild crepitus with range of motion, tenderness along his medial and lateral joint lines, positive Dandre's test, no instability Results Reviewed Results Reviewed: X-rays of the patient's right knee taken previously show mild joint space narrowing, no acute bony abnormalities Assessment & Plan Assessment & Plan (1) Tear of medial meniscus of right knee: Code(s): S83.241A - Other tear of medial meniscus, current injury, right knee, initial encounter Category: Medical Plan Lenin presents with recurrent right knee pain and mechanical symptoms most likely due to tearing of his medial and lateral menisci. I will send the patient for an MRI of his right knee for further evaluation. The patient requests that his right knee MRI be performed at [facility] because he lives right next to the hospital and he is wheelchair bound. I will see the patient back once the MRI is completed to discuss the findings and treatment options. Feel free to call me at any time should questions regarding his orthopedic management arise. I spent 22 minutes in reviewing the patient's records and imaging studies, seeing the patient and documenting in the medical record. Orders: Orders MR knee RT wo con Today S83.241A - Other tear of medial meniscus, current injury, right knee, initial encounter Coding Level of Care Code Est Pt Level 3 (84684) Complex EM visit Add On G2211 Diagnoses Tear of medial meniscus of right knee S83.241A
== END 2024-02-17 10:03 | disposition home or self-care (01) ==
PROVIDERS: PCP Student in an Organized Health Care Education/Training Program; Visit Provider Orthopaedic Surgery
DX: S83.241A Other tear of medial meniscus, current injury, right knee, initial encounter (principal)
CPT/HCPCS: 99214; G2211

== ENCOUNTER → 2024-02-17 09:26 | Outpatient (BNVA) | payer MEDICARE, MEDICAID, SELFPAY | PROVIDERS: PCP Student in an Organized Health Care Education/Training Program; Visit Provider Orthopaedic Surgery | DX: S83.241A Other tear of medial meniscus, current injury, right knee, initial encounter (principal); X58.XXXA Exposure to other specified factors, initial encounter; Y93.9 Activity, unspecified; Y92.9 Unspecified place or not applicable; Y99.9 Unspecified external cause status; Z86.73 Personal history of transient ischemic attack (TIA), and cerebral infarction without residual deficits | CPT/HCPCS: 99212 ==

== ENCOUNTER 2024-02-21 11:11 | Outpatient (AMB) | payer MEDICARE, MEDICAID, SELFPAY ==
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
== END 2024-02-21 11:11 | disposition home or self-care (01) ==
LOC: HO.HOP 11:11
PROVIDERS: PCP Student in an Organized Health Care Education/Training Program; Visit Provider Psychiatry & Neurology Psychiatry
DX: F33.42 Major depressive disorder, recurrent, in full remission (principal); F43.12 Post-traumatic stress disorder, chronic
CPT/HCPCS: 99213

== ENCOUNTER → 2024-02-21 11:11 | Outpatient (BNVA) | payer MEDICARE, MEDICAID, SELFPAY | PROVIDERS: PCP Student in an Organized Health Care Education/Training Program; Visit Provider Psychiatry & Neurology Psychiatry ==

== ENCOUNTER 2024-03-03 19:57 | Outpatient (REF) | payer MEDICARE, MEDICAID, SELFPAY | END 2024-03-03 19:58 | disposition home or self-care (01) | LOC: HO.MRI 19:57 | PROVIDERS: PCP Student in an Organized Health Care Education/Training Program; Visit Provider Orthopaedic Surgery | DX: Z13.89 Encounter for screening for other disorder (principal) ==

== ENCOUNTER 2024-04-17 09:57 | Outpatient (AMB) | payer MEDICARE, MEDICAID, SELFPAY ==
--- OUTSIDE RECORDS SUMMARY | 2024-04-17 10:00 | XMS_ITS | Continuity of Care Document ---
Author Organization [facility] Address [address] [place] [id number]- Care Team Providers Care Panel Machine Tender Name Role Phone Valdo CARRILLO, Muna Leong Primary Care [id number]): [facility] - 03/20/24 [facility] [address] [place] [id number] Attending Physician: Gregorio Rob MD Referring Physician: Muna Cortes Encounter Type: Office Visit Allergies, Adverse Reactions, Alerts Substance Criticality Severity Reaction Reaction Severity Status lisinopril cough Active Pradaxa throat ulcer Active Immunizations Given and Recorded Vaccine Date Status Refusal Reason SARS-CoV-2 (COVID-19) mRNA-1273 vaccine 1 02/16/23 Recorded SARS-CoV-2 (COVID-19) mRNA-1273 vaccine 07/24/21 R ecorded SARS-CoV-2 (COVID-19) mRNA-1273 vaccine 02/25/21 R ecorded SARS-CoV-2 (COVID-19) mRNA-1273 vaccine 07/30/20 R ecorded SARS-CoV-2 (COVID-19) mRNA-1273 vaccine 07/02/20 R ecorded influenza virus vaccine, inactivated 02/16/23 Kalia rded influenza virus vaccine, inactivated 02/18/22 Kalia rded influenza virus vaccine, inactivated 01/18/20 Kalia rded tetanus/diphtheria/pertussis, acel(Tdap) 08/13/22 Given [id number] bivalent booster vax 02/18/22 Recorded Influenza Virus Vaccine (oldterm) 01/14/21 Recorde d Influenza Virus Vaccine (oldterm) 02/01/19 Recorde d zoster vaccine, inactivated 02/01/19 Recorded 1Result Comment: Administered at [facility] 24 Hour Allergy = 180 mg, By Mouth, Daily, 0 Refills, Maintenance, 08/20/21 10:36:00 AM EDT, Partial fill upon patient request if the prescription is for a schedule II opioid drug. Start Date: 08/20/21 Status: Ordered Repeat number: 1 amLODIPine 5 mg oral tablet 1 tablet, By Mouth, Daily, # 90 tablet, 1 Refills, Maintenance, 10/25/23 3:15:00 PM EDT, [facility] #[id number], 183, cm, 09/30/23 13:34:00 EDT, Height, 69.2, kg, 06/16/23 19:29:00 EST, Dry Weight Start Date: 10/25/23 Status: Ordered Quantity: 90.0 Unit: tablet Repeat number: 2 Baclofen See Instructions, By Mouth 3 times a day, 0 Refills, Maintenance, 03/04/23 1:19:00 PM EDT, Partial fill upon patient request if the prescription is for a schedule II opioid drug. Start Date: 03/04/23 Status: Ordered Repeat number: 1 clonazePAM 1 mg oral tablet 1 tablet = 1 mg, By Mouth, 2 times a day, 0 Refills, Maintenance, 01/04/20 8:48:00 AM EDT Start Date: 01/04/20 Status: Ordered Repeat number: 1 CPAP mask CPAP mask, See Instructions, # 1 each, Refills 0, Tot. Refills 0, Maintenance, AirFit F40 Size: Large DX: EUGENE Length of need: 99M, 12/13/23 3:35:00 PM EDT, Supply Start Date: 12/13/23 Status: Ordered Quantity: 1.0 Unit: each Repeat number: 1 Crestor 40 mg oral tablet 1 tablet = 40 mg, By Mouth, Daily, # 90 tablet, 3 Refills, Maintenance, 07/27/22 3:13:00 PM EDT, Tablet, [facility] #[id number], Partial fill upon patient request if the prescription is for a schedule II opioid drug., 183, cm, 07/27/22 14:47:00 EDT, Height, 115, kg, 04/09/22 9:24:00 EST, Dry Weight Start Date: 07/27/22 Status: Ordered Quantity: 90.0 Unit: tablet Repeat number: 4 duloxetine 60 mg oral enteric coated capsule TAKE 1 CAPSULE BY MOUTH DAILY Start Date: 07/21/23 Status: Ordered Repeat number: 1 Eliquis 5 mg oral tablet 1 tablet = 5 mg, By Mouth, 2 times a day, as directed on package labeling., # 180 tablet, 1 Refills, Maintenance, 11/29/23 9:25:00 AM EDT, Tablet, [facility] #[id number], Partial fill upon patientrequest if the prescription is for a schedule II opioid drug., 183, cm, 09/30/23 13:34:00 EDT, Height, 69.2, kg, 06/16/23 19:29:00 EST, Dry Weight Start Date: 11/29/23 Status: Ordered Quantity: 180.0 Unit: tablet Repeat number: 2 Emgality Prefilled Pen 120 mg/mL subcutaneous solution 0 Refills, Maintenance, 07/21/23 9:02:00 AM EDT, Partial fill upon patient request if the prescription is for a schedule II opioid drug. Start Date: 07/21/23 Status: Ordered Repeat number: 1 ezetimibe 10 mg oral tablet 1 tablet, By Mouth, Daily, # 90 tablet, 1 Refills, Maintenance, 03/08/24 3:50:00 PM EST, [facility] #[id number], 183, cm, 03/06/24 14:17:00 EST, Height, 69.2, kg, 06/16/23 19:29:00 EST, Dry Weight Start Date: 03/08/24 Status: Ordered Quantity: 90.0 Unit: tablet Repeat number: 2 Fax to [facility] Fax to [facility], See Instructions, # 1 each, Refills 11, Tot. Refills 11, Maintenance, BIPAP/CPAP Supplies mask, tubing, filters, headgear, chin strap, and water chamber. Patient is compliant with PAP use and continued use is required for medical benefit Length of need: Lifetime 99 months, 01/29/21 5:48:00 PM EDT, Supply Start Date: 01/29/21 Status: Ordered Quantity: 1.0 Unit: each Repeat number: 12 Indication: Obstructive sleep apnea (adult) (pediatric) Ivaps Machine Ivaps Machine, See Instructions, # 1 each, Refills 11, Tot. Refills 11, Maintenance, DME: [facility]. Diagnosis: Obstructive sleep apnea, G 47.33 Device: iVAPS, target Va 11.8, EPAP 10, min PS 4, max PS 16, RR 16, heated medication. PAP supplies Length of need: 99., 05/06/21 3:13:00 PM EST, Supply Start Date: 05/06/21 Status: Ordered Quantity: 1.0 Unit: each Repeat number: 12 Lamotrigine 150 mg, By Mouth, 2 times a day, Refills 0, Maintenance, 06/17/20 3:11:00 PM EST, Partial fill upon patient request if the prescription is for a schedule II opioid drug. Start Date: 06/17/20 Status: Ordered Repeat number: 1 Lasix 20 mg oral tablet 60 mg, 3, tablet, By Mouth, Daily, # 90 tablet, Refills 3, Tot. Refills 3, Maintenance, 03/06/24 2:37:00 PM EST, Route to Pharmacy Electronically, [facility] #[id number], Partial fill upon patientrequest if the prescription is for a schedule II opioid drug., 183, cm, 03/06/24 14:17:00 EST, Height, 69.2, kg, 06/16/23 19:29:00 EST, Dry Weight Start Date: 03/06/24 Status: Ordered Quantity: 90.0 Unit: tablet Repeat number: 4 metoprolol 200 mg oral tablet, extended release 1 tablet = 200 mg, By Mouth, Daily, # 90 tablet, 3 Refills, Maintenance, 10/01/23 10:58:00 AM EDT, ER Tablet, [facility] #[id number], Partial fill upon patient request if the prescription is for aschedule II opioid drug., 183, cm, 09/30/23 13:34:00 EDT, Height, 69.2, kg, 06/16/23 19:29:00 EST, Dry Weight Start Date: 10/01/23 Status: Ordered Quantity: 90.0 Unit: tablet Repeat number: 4 morphine 15 mg/8 to 12 hr oral tablet, extended release 1 tablet = 15 mg, 0 Refills, Maintenance, 03/06/24 2:17:00 PM EST, Partial fill upon patient requestif the prescription is for a schedule II opioid drug. Start Date: 03/06/24 Status: Ordered Repeat number: 1 pantoprazole 40 mg oral delayed release tablet 1 tablet, By Mouth, 2 times a day, # 180 tablet, 1 Refills, Maintenance, 11/16/23 8:40:00 AM EDT, 183, cm, 09/30/23 13:34:00 EDT, Height, 69.2, kg, 06/16/23 19:29:00 EST, Dry Weight Start Date: 11/16/23 Status: Ordered Quantity: 180.0 Unit: tablet Repeat number: 2 tadalafil 5 mg oral tablet TAKE 1 TABLET BY MOUTH DAILY Start Date: 11/05/22 Status: Ordered Repeat number: 1 tiZANidine 4 mg oral tablet 4 mg, 1, tablet, By Mouth, 3 times a day, PRN, 1/2-1 tablet TID PRN, # 90 tablet, Refills 1, Tot. Refills 1, Maintenance, Spasm, 12/23/23 5:14:00 PM EDT, Route to Pharmacy Electronically, [facility] #[id number], Partial fill upon patient request if the prescription is for a schedule II opioid drug., 183, cm, 12/23/23 13:57:00 EDT, Height, 69.2, kg, 06/16/23 19:29:00 EST, Dry Weight Start Date: 12/23/23 Status: Ordered Quantity: 90.0 Unit: tablet Repeat number: 2 Problem List Condition Confirmation Course Effective Dates Status Health Status Informant Gait abnormality Confirmed Active Anemia Confirmed Active Atrial fibrillation Confirmed Active Cardiomyopathy Confirmed Active Cerebral embolism Confirmed Active CVA (cerebrovascular accident) Confirmed Active CAD in [place] artery Confirmed Active Coronary artery disease Confirmed Active Genu recurvatum Confirmed Active Depressive disorder Confirmed Active Presence of intrathecal baclofen pump Confirmed Active Diarrhea Confirmed Active Discolored skin Confirmed Active HGHG (hypogonadotropic hypogonadism) Confirmed Active Campylobacter diarrhea Confirmed Active Epigastric pain Confirmed Active Hot flashes Confirmed Active Headache Confirmed Active Hypercholesterolemia Confirmed Active Hyperglycemia Confirmed Active Hyperhidrosis Confirmed Active Hyperprolactinemia Confirmed Active Hypertensive disorder Confirmed Active HTN (hypertension) Confirmed Active Impingement syndrome, shoulder, left Confirmed Active Impotence of organic origin Confirmed Active Left knee injury Confirmed Active Left spastic hemiparesis Confirmed Active Obstructive sleep apnea syndrome Confirmed Active Penile pain Confirmed Active Prediabetes Confirmed Active RUQ pain Confirmed Active Severe obesity (BMI 35.0-39.9) with comorbidity Confirmed Active Left spastic hemiplegia Confirmed Active Spasticity Confirmed Active Edema Confirmed Active Thrombophlebitis of deep veins of lower extremity Confirmed Active Umbilical hernia Confirmed Active Vitamin D deficiency Confirmed Active Vital Signs Most recent to oldest [Reference Range]: 1 Height 183 cm (03/13/24 11:02 AM) Weight 118.1 kg (03/13/24 11:02 AM) Oxygen Saturation [94-100 %] 99 % (03/13/24 11:02 AM) Pulse Rate [55-90 bpm] 92 bpm *H* (03/13/24 11:02 AM) Body Mass Index [18.5-24.99 kg/m2] 35.27 kg/m2 *>HHI* (03/13/24 11:02 AM) Blood Pressure [90-138/55-84 mm Hg] 133/ 86mm Hg (03/13/24 11:02 AM) Respiratory Rate [16-30 br/min] 16 br/mi n (03/13/24 11:02 AM) Mode of Delivery (Oxygen) Room air (03/13/24 11:02 AM) Blood pressure sites Arm, right (03/13/24 11:02 AM) Weight Obtained Via Bed scale (03/13/24 11:02 AM) Social History Social History Type Response Smoking Status Former smoker, quit more than 30 days ago; Other: quit 2 years ago pt does VAPE. stopped vapping 3 months ago; Tobacco use times per day: quit 3 years ago, smoking 1ppd; Number of years: 20; Total pack years: 20; entered on: 04/08/22 Sex Sex Representation Male (finding) Implantable Device List Procedure Provider Procedure Date Device Type Site Unknown Unknown 02/14/20 Unknown Unknown Device Identifier Serial Number Lot or Batch Number Manufacturing Date Expiration Date Distinct Identification Code MRI Safety Implantable Status Assigning Authority Unknown 1 Unknown Unknown Unknown Unknown Unknown MR Conditi onal Active Unknown Procedure Provider Procedure Date Device Type Site Unknown Unknown 09/21/12 Unknown Unknown Device Identifier Serial Number Lot or Batch Number Manufacturing Date Expiration Date Distinct Identification Code MRI Safety Implantable Status Assigning Authority Unknown 2 Unknown Unknown Unknown Unknown Unknown MR Rupert bautista Active Unknown 1MR Safe 1.5 and 3T full body MRI compatible - Pump may need interrogation if pump alarms. Pt can follow up with MD. 2MRI Safe for 1.5 and 3T Patient Care team information Care Team Personnel Name: Beverley Akers Position: [facility] Onco RN Member Role: Primary Care Nurse Name: Emery Acosta RN Position: [facility] ED RN W/OE and Tasks Member Role: Primary Care Nurse Name: Moni Branham MA Position: [facility] [place] Office Staff Member Role: Lifetime Consulting Physician Name: Bianca Lopez RN Position: [facility] RN Member Role: Primary Care Nurse Name: Nolberto York NP Position: [facility] PCO Associate Professional Member Role: Primary Care Nurse Address: [address] [place] [address] Telecom: Name: Muna Cortes Position: [facility] PCO Associate Professional Member Role: PCP Address: [address] [place] [address] Telecom: Name: Sofya Gallegos RN Position: [facility] RN Member Role: Primary Care Nurse Care Team Related Persons Name: JESSICA AVILES Name: NIK SORENSEN Name: JESSICA FELDMAN Insurance Providers Guarantor name: INEZ TRACI Health Plan Information #: 2 [facility] Member Number: [id number] Policy Number: NA Group Number: NA Health Plan Information #: 1 Payer: MEDICARE PART B OUTPT Member Number: [id number] Policy Number: NA Group Number: NA
--- OUTSIDE RECORDS SUMMARY | 2024-04-17 10:00 | XMS_ITS | Continuity of Care Document ---
Author Organization [facility] Address [address] [place] [address]- Care Team Providers Care Shipping Packer Name Role Phone Valdo CARRILLO, Muna Leong Primary Care P elizabet [facility] [id number] Date(s): 02/22/24 - 03/23/[address] [address]- Attending Physician: Milad Han Admitting Physician: Milad Han Referring Physician: AdmtrMilad Encounter Type: Triage Allergies, Adverse Reactions, Alerts Substance Criticality Severity [...] 01/18/20 Kalia rded tetanus/diphtheria/pertussis, acel(Tdap) 08/13/22 Given [id number] bivalent booster vax 02/18/22 Recorded Influenza Virus Vaccine (oldterm) 01/14/21 Recorde d Influenza Virus Vaccine (oldterm) 02/01/19 Recorde d zoster vaccine, inactivated 02/01/19 Recorded 1Result Comment: Administered at [facility] 24 Hour Allergy = 180 mg, By Mouth, Daily, 0 Refills, Maintenance, 08/20/21 10:36:00 AM EDT, Partial fill upon patient request if the prescription is for a schedule II opioid drug. Start Date: 08/20/21 Status: Ordered Repeat number: 1 amLODIPine 5 mg oral tablet 1 tablet, By Mouth, Daily, # 90 tablet, 1 Refills, Maintenance, 10/25/23 3:15:00 PM EDT, [facility] #[id number], 183, cm, 09/30/23 13:34:00 EDT, Height, 69.2, [...] Refills, Maintenance, 07/27/22 3:13:00 PM EDT, Tablet, [facility] #[id number], Partial fill upon patient request if the [...] Refills, Maintenance, 11/29/23 9:25:00 AM EDT, Tablet, [facility] #[id number], Partial fill upon patientrequest if the prescription [...] 1 Refills, Maintenance, 03/08/24 3:50:00 PM EST, [facility] #[id number], 183, cm, 03/06/24 14:17:00 EST, Height, 69.2, kg, 06/16/23 19:29:00 EST, Dry Weight Start Date: 03/08/24 Status: Ordered Quantity: 90.0 Unit: tablet Repeat number: 2 Fax to [facility] Fax to [facility], See Instructions, # 1 each, Refills 11, [...] Refills 11, Tot. Refills 11, Maintenance, DME: [facility]. Diagnosis: Obstructive sleep apnea, G 47.33 Device: [...] 2:37:00 PM EST, Route to Pharmacy Electronically, [facility] #[id number], Partial fill upon patientrequest if the prescription [...] Maintenance, 10/01/23 10:58:00 AM EDT, ER Tablet, [facility] #[id number], Partial fill upon patient request if the [...] 5:14:00 PM EDT, Route to Pharmacy Electronically, [facility] #[id number], Partial fill upon patient request if the [...] CVA (cerebrovascular accident) Confirmed Active CAD in [place] artery Confirmed Active Coronary artery disease Confirmed [...] Confirmed Active Vitamin D deficiency Confirmed Active Social History Social History Type Response Smoking [...] 2 Unknown Unknown Unknown Unknown Unknown MR Conditi onal Active Unknown 1MR Safe 1.5 and 3T full body MRI compatible - Pump may need interrogation if pump alarms. Pt can follow up with . 2MRI Safe for 1.5 and 3T Patient Care team information Care Team Personnel Name: Beverley Akers Position: [facility] Onco RN Member Role: Primary Care Nurse Name: Emery Acosta RN Position: [facility] ED RN W/OE and Tasks Member Role: Primary Care Nurse Name: Moni Branham MA Position: [facility] [place] Office Staff Member Role: Lifetime Consulting Physician Name: Bianca Lopez RN Position: [facility] RN Member Role: Primary Care Nurse Name: Nolberto York NP Position: [facility] PCO Associate Professional Member Role: Primary Care Nurse Address: [address] [place] [address] [address] [place] [address]- [place] Telecom: Name: Muna Cortes Position: [facility] PCO Associate Professional Member Role: PCP Address: [address] [place] [address]. [address] [place] [address]- Telecom: Name: Sofya Gallegos RN Position: [facility] RN Member Role: Primary Care Nurse Care Team Related Persons Name: JESSICA AVILES Name: NIK SORENSEN Name: JESSICA FELDMAN Insurance Providers Guarantor name: INEZ AVILES Health Plan Information #: 1 Payer: MEDICARE PART B OUTPT Member Number: NA Policy Number: NA Group Number: NA Health Plan Information #: 2 [facility] Member Number: NA Policy Number: NA Group Number: NA
--- OUTSIDE RECORDS SUMMARY | 2024-04-17 10:00 | XMS_ITS | Continuity of Care Document ---
Author Organization [facility] Adult Address [address] [place] [address]- Care Team Providers Care Compound Finisher Name Role Phone Valdo CARRILLO, Muna Leong Primary Care Lexi mcneal [id number] Date([facility]): 03/08/24 - 04/07/[address] [address]- Encounter Type: Triage Allergies, Adverse Reactions, Alerts Substance Criticality Severity Reaction Reaction Severity Status Pradaxa throat ulcer Active lisinopril cough Active Immunizations Given and Recorded Vaccine Date [...] 01/18/20 Kalia rded tetanus/diphtheria/pertussis, acel(Tdap) 08/13/22 Given [id number] bivalent booster vax 02/18/22 Recorded Influenza Virus Vaccine (oldterm) 01/14/21 Recorde d Influenza Virus Vaccine (oldterm) 02/01/19 Recorde d zoster vaccine, inactivated 02/01/19 Recorded 1Result Comment: Administered at [facility] 24 Hour Allergy = 180 mg, By Mouth, Daily, 0 Refills, Maintenance, 08/20/21 10:36:00 AM EDT, Partial fill upon patient request if the prescription is for a schedule II opioid drug. Start Date: 08/20/21 Status: Ordered Repeat number: 1 amLODIPine 5 mg oral tablet 1 tablet, By Mouth, Daily, # 90 tablet, 1 Refills, Maintenance, 10/25/23 3:15:00 PM EDT, [facility] #[id number], 183, cm, 09/30/23 13:34:00 EDT, Height, 69.2, [...] Refills, Maintenance, 07/27/22 3:13:00 PM EDT, Tablet, [facility] #[id number], Partial fill upon patient request if the [...] Refills, Maintenance, 11/29/23 9:25:00 AM EDT, Tablet, [facility] #[id number], Partial fill upon patientrequest if the prescription [...] 1 Refills, Maintenance, 03/08/24 3:50:00 PM EST, [facility] #[id number], 183, cm, 03/06/24 14:17:00 EST, Height, 69.2, kg, 06/16/23 19:29:00 EST, Dry Weight Start Date: 03/08/24 Status: Ordered Quantity: 90.0 Unit: tablet Repeat number: 2 Fax to [facility] Fax to [facility], See Instructions, # 1 each, Refills 11, [...] Refills 11, Tot. Refills 11, Maintenance, DME: [facility]. Diagnosis: Obstructive sleep apnea, G 47.33 Device: [...] 2:37:00 PM EST, Route to Pharmacy Electronically, [facility] #[id number], Partial fill upon patientrequest if the prescription [...] Maintenance, 10/01/23 10:58:00 AM EDT, ER Tablet, [facility] #[id number], Partial fill upon patient request if the [...] 5:14:00 PM EDT, Route to Pharmacy Electronically, [facility] #[id number], Partial fill upon patient request if the [...] CVA (cerebrovascular accident) Confirmed Active CAD in [place] artery Confirmed Active Coronary artery disease Confirmed [...] 1 Unknown Unknown Unknown Unknown Unknown MR Rupert bautista Active Unknown Procedure Provider Procedure Date Device [...] Care Team Personnel Name: Beverley Akers Position: [facility] Onco RN Member Role: Primary Care Nurse Name: Emery Acosta RN Position: [facility] ED RN W/OE and Tasks Member Role: Primary Care Nurse Name: Moni Branham MA Position: [facility] BAISA Office Staff Member Role: Lifetime Consulting Physician Name: Bianca Lopez RN Position: [facility] RN Member Role: Primary Care Nurse Name: Nolberto York NP Position: [facility] PCO Associate Professional Member Role: Primary Care Nurse Address: [address] [place] [address] [address] [place] [address]- Telecom: Name: Muna Cortes Position: [facility] PCO Associate Professional Member Role: PCP Address: [address] [place] [address]. [address] [place] [address]- Telecom: Name: Sofya Gallegos RN Position: [facility] RN Member Role: Primary Care Nurse Care Team Related Persons Name: JESSICA AVILES Name: NIK SORENSEN Name: JESSICA FELDMAN Insurance Providers Guarantor name: INEZ AVILES Health Plan Information #: 1 Payer: MEDICARE PART B OUTPT Member Number: NA Policy Number: NA Group Number: NA Health Plan Information #: 2 Payer: [place] Member Number: NA Policy Number: NA Group Number: NA
--- OUTSIDE RECORDS SUMMARY | 2024-04-17 10:00 | XMS_ITS ---
Author Name [facility] Organization Unknown Problems Problem Status Onset Date Problem Type Date of Resoluti on Source Other spondylosis with myelopathy, cervical region active [facility]
--- NOTE | 2024-04-17 10:03 | A.OFFVIS_ITS ---
Vital Signs 04/17/24 10:07 Height 6 ft Weight 245 lb BMI 33.2 Intake Visit Reasons: Recurrent right knee pain and giving way Intake Note: Migue is a 48 year old male who presents with complaints of recurrent right knee pain and giving way. The patient did undergo right knee arthroscopic surgery on 01/22/2023. He got very good relief from that surgery initially. The patient states that approximately 3 months ago he twisted his knee while getting out of his wheelchair and re-injured his knee. Since that time his symptoms have gotten progressively worse. He has failed the last 6 weeks of conservative treatment which has consisted of physical therapy exercises, Tylenol and morphine. He is not able to take anti-inflammatory medicines because he is on Eliquis. He states that his right knee will give out several times per day. He has had multiple injections in the past. The most recent injection gave him minimal relief. Allergies dabigatran etexilate Allergy (Intermediate, Verified 04/17/24 10:08) Cough lisinopril Allergy (Intermediate, Verified 04/17/24 10:08) Cough Medication List - Last Reconciled 04/17/24 by Ace Schuler MD alfuzosin ER 10 mg PO DAILY amlodipine 5 mg PO DAILY apixaban (Eliquis) 5 mg PO BID clonazepam 0.25 mg PO DAILY clonazepam 1 mg (2 x 0.5 mg) PO BID 30 days duloxetine 60 mg PO DAILY ezetimibe 10 mg PO DAILY finasteride 5 mg PO DAILY furosemide 40 mg PO DAILY galcanezumab-gnlm (Emgality Pen) mg subcut lamotrigine 150 mg PO BID 90 days metoprolol succinate ER 200 mg PO DAILY morphine ER 30 mg PO BID morphine ER 15 mg PO BID pantoprazole 40 mg PO BID rosuvastatin 40 mg PO DAILY tadalafil 5 mg PO DAILY [facility] Medical History Elevated cholesterol CAD (coronary artery disease) Cerebral embolism Alcohol dependence in remission Cardiomyopathy DVT (deep venous thrombosis) Muscle spasticity Central pain syndrome HTN (hypertension) Atrial fibrillation Sleep apnea Chronic post-traumatic stress disorder (PTSD) Major depression, recurrent, chronic CVA (cerebral vascular accident) Surgical History Hx of cardiac catheterization H/O colonoscopy History of carpal tunnel release Hx of nasal septoplasty History of back surgery Social History Are you a primary child care attendant school to a significant other at home: No Do you presently have visiting nurse or other home services: No Patient Tobacco Use Status: Former Tobacco user Tobacco use type: Cigarette Current occupational status: disabled Current occupation: rt hand dominant Physical Exam Vital Signs: BMI result Body Mass Index 33.2 Const Other: Well-nourished well-developed very friendly male awake alert and oriented x3 in no acute distress Extrem Other: Bilateral lower extremity examination shows good capillary refill, no skin lesions noted, normal sensation light touch Right knee examination shows a minimal effusion, mild crepitus with range of motion, tenderness along his medial joint line, positive Dandre's test, no instability Results Reviewed Results Reviewed: MRI of the patient's right knee taken at [facility] shows mild diffuse degenerative changes as well as a recurrent tear of the medial meniscus Assessment & Plan Assessment & Plan (1) Tear of medial meniscus of right knee: Code(s): S83.241A - Other tear of medial meniscus, current injury, right knee, initial encounter Category: Medical Plan Mr. Hardin presents with recurrent right knee pain and mechanical symptoms due to a recurrent medial meniscus tear. I had a lengthy discussion with the patient regarding the treatment options. At this point he has failed continued non operative treatments. The risks and benefits of right knee revision arthroscopic surgery were discussed at length with the patient. The patient wishes to proceed. Surgery will most likely involve right knee arthroscopic partial medial meniscectomy. He does understand that he may not get 100% relief of his symptoms depending on the severity of his degenerative changes. The patient will be scheduled for next available date. He will follow-up as instructed. Feel free to call me at any time should questions regarding his orthopedic management arise. I spent 20 minutes in reviewing the patient's records and imaging studies, seeing the patient and documenting in the medical record. Coding Level of Care Code Est Pt Level 3 (08560) Complex EM visit Add On G2211 Diagnoses Tear of medial meniscus of right knee S83.241A
[2024-04-17 10:07] VITALS: BMI 33.2
== END 2024-04-17 10:26 | disposition home or self-care (01) ==
PROVIDERS: PCP Student in an Organized Health Care Education/Training Program; Visit Provider Orthopaedic Surgery
DX: S83.241A Other tear of medial meniscus, current injury, right knee, initial encounter (principal)
CPT/HCPCS: 99213; G2211

== ENCOUNTER → 2024-04-17 09:57 | Outpatient (BNVA) | payer MEDICARE, MEDICAID, SELFPAY | PROVIDERS: PCP Student in an Organized Health Care Education/Training Program; Visit Provider Orthopaedic Surgery | DX: S83.241A Other tear of medial meniscus, current injury, right knee, initial encounter (principal); X58.XXXA Exposure to other specified factors, initial encounter; Y93.9 Activity, unspecified; Y92.9 Unspecified place or not applicable; Y99.9 Unspecified external cause status | CPT/HCPCS: 99212 ==

== ENCOUNTER 2024-05-10 11:23 | Outpatient (AMB) | payer MEDICARE, MEDICAID, SELFPAY ==
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
--- OUTSIDE RECORDS SUMMARY | 2024-05-10 11:45 | XMS_ITS | Continuity of Care Document ---
Author Organization [facility] Address [address] [place] [address]- Care Team Providers Care Assistant Golf Course Superintendent Name Role Phone Muna Cortes Primary Care Lexi mcnela Encounter [facility] Date(s): 03/31/24 - 04/30/24 [facility] [address] [place] [id number] Encounter Type: Triage Allergies, Adverse Reactions, Alerts [...] 01/18/20 Kalia rded tetanus/diphtheria/pertussis, acel(Tdap) 08/13/22 Given [id number] bivalent booster vax 02/18/22 Recorded Influenza Virus Vaccine (oldterm) 01/14/21 Recorde d Influenza Virus Vaccine (oldterm) 02/01/19 Recorde d zoster vaccine, inactivated 02/01/19 Recorded 1Result Comment: Administered at [facility] 24 Hour Allergy = 180 mg, By Mouth, Daily, 0 Refills, Maintenance, 08/20/21 10:36:00 AM EDT, Partial fill upon patient request if the prescription is for a schedule II opioid drug. Start Date: 08/20/21 Status: Ordered Repeat number: 1 amLODIPine 5 mg oral tablet 1 tablet, By Mouth, Daily, # 90 tablet, 1 Refills, Maintenance, 10/25/23 3:15:00 PM EDT, [facility] #[id number], 183, cm, 09/30/23 13:34:00 EDT, Height, 69.2, [...] Refills, Maintenance, 07/27/22 3:13:00 PM EDT, Tablet, [facility] #[id number], Partial fill upon patient request if the [...] Refills, Maintenance, 11/29/23 9:25:00 AM EDT, Tablet, [facility] #[id number], Partial fill upon patientrequest if the prescription [...] 1 Refills, Maintenance, 03/08/24 3:50:00 PM EST, [facility] #[id number], 183, cm, 03/06/24 14:17:00 EST, Height, 69.2, kg, 06/16/23 19:29:00 EST, Dry Weight Start Date: 03/08/24 Status: Ordered Quantity: 90.0 Unit: tablet Repeat number: 2 Fax to [facility] Fax to [facility], See Instructions, # 1 each, Refills 11, [...] 11, Tot. Refills 11, Maintenance, DME: [facility]. Diagnosis: Obstructive sleep apnea, G 47.33 Device: [...] 2:37:00 PM EST, Route to Pharmacy Electronically, [facility] #[id number], Partial fill upon patientrequest if the prescription [...] Maintenance, 10/01/23 10:58:00 AM EDT, ER Tablet, [facility] #[id number], Partial fill upon patient request if the [...] 5:14:00 PM EDT, Route to Pharmacy Electronically, [facility] #[id number], Partial fill upon patient request if the [...] CVA (cerebrovascular accident) Confirmed Active CAD in [place] artery Confirmed Active Coronary artery disease Confirmed [...] Care Team Personnel Name: Beverley Akers Position: [facility] Onco RN Member Role: Primary Care Nurse Name: Emery Acosta RN Position: [facility] ED RN W/OE and Tasks Member Role: Primary Care Nurse Name: Moni Branham [place] Position: [facility] [place] Office Staff Member Role: Lifetime Consulting Physician Name: Bianca Lopez RN Position: [facility] RN Member Role: Primary Care Nurse Name: Nolberto York NP Position: [facility] PCO Associate Professional Member Role: Primary Care Nurse Address: [address] [place] [address] [address] [place] [address]- [employer]: Name: Valdo CARRILLO, Muna Leong Position: [facility] Associate Professional Member Role: PCP Address: [address] [place] [address]. [address] [place] [address]- Telecom: Name: Sofya Gallegos RN Position: [facility] RN Member Role: Primary Care Nurse Care Team Related Persons Name: JESSICA AVILES Name: NIK SORENSEN Name: JESSICA FELDMAN Insurance Providers Guarantor name: INEZ AVILES Health Plan Information #: 1 Payer: MEDICARE PART B OUTPT Member Number: NA Policy Number: NA Group Number: NA Health Plan Information #: 2 Payer: [facility] Member Number: NA Policy Number: NA Group Number: NA
--- OUTSIDE RECORDS SUMMARY | 2024-05-10 11:45 | XMS_ITS | Continuity of Care Document ---
Author Organization [facility] Address [address] [place] [address]- Care Team Providers Care Gate Cutter Name Role Phone Valdo CARRILLO, Muna Leong Primary Care hirenemy Encounter [facility] [id number] Date(s): 02/22/24 - 04/23/[address] [address]- Encounter Diagnosis Dependence on wheelchair(Final) - Discharge Disposition: A-D/C Home Attending Physician: Muna Cortes Admitting Physician: Muna Cortes Referring Physician: Muna Cortes Encounter Type: Disch Recurring OP Allergies, Adverse Reactions, Alerts Substance Criticality Severity [...] 01/18/20 Kalia rded tetanus/diphtheria/pertussis, acel(Tdap) 08/13/22 Given [id number] bivalent booster vax 02/18/22 Recorded Influenza Virus Vaccine (oldterm) 01/14/21 Recorde d Influenza Virus Vaccine (oldterm) 02/01/19 Recorde d zoster vaccine, inactivated 02/01/19 Recorded 1Result Comment: Administered at [facility] 24 Hour Allergy = 180 mg, By Mouth, Daily, 0 Refills, Maintenance, 08/20/21 10:36:00 AM EDT, Partial fill upon patient request if the prescription is for a schedule II opioid drug. Start Date: 08/20/21 Status: Ordered Repeat number: 1 amLODIPine 5 mg oral tablet 1 tablet, By Mouth, Daily, # 90 tablet, 1 Refills, Maintenance, 10/25/23 3:15:00 PM EDT, [facility] #[id number], 183, cm, 09/30/23 13:34:00 EDT, Height, 69.2, [...] Refills, Maintenance, 07/27/22 3:13:00 PM EDT, Tablet, [facility] #[id number], Partial fill upon patient request if the [...] Refills, Maintenance, 11/29/23 9:25:00 AM EDT, Tablet, [facility] #[id number], Partial fill upon patientrequest if the prescription [...] 1 Refills, Maintenance, 03/08/24 3:50:00 PM EST, [facility] #[id number], 183, cm, 03/06/24 14:17:00 EST, Height, 69.2, kg, 06/16/23 19:29:00 EST, Dry Weight Start Date: 03/08/24 Status: Ordered Quantity: 90.0 Unit: tablet Repeat number: 2 Fax to [facility], See Instructions, # 1 each, Refills 11, [...] Refills 11, Tot. Refills 11, Maintenance, DME: [facility]. Diagnosis: Obstructive sleep apnea, G 47.33 Device: [...] 2:37:00 PM EST, Route to Pharmacy Electronically, [facility] #[id number], Partial fill upon patientrequest if the prescription [...] Maintenance, 10/01/23 10:58:00 AM EDT, ER Tablet, [facility] #[id number], Partial fill upon patient request if the [...] 5:14:00 PM EDT, Route to Pharmacy Electronically, [facility] #[id number], Partial fill upon patient request if the [...] CVA (cerebrovascular accident) Confirmed Active CAD in [place] artery Confirmed Active Coronary artery disease Confirmed [...] 1 Unknown Unknown Unknown Unknown Unknown MR Emery ondiamond Active Unknown Procedure Provider Procedure Date Device Type Site Unknown Unknown 09/21/12 Unknown Unknown Device Identifier Serial Number Lot or Batch Number Manufacturing Date Expiration Date Distinct Identification Code MRI Safety Implantable Status Assigning Authority Unknown 2 Unknown Unknown Unknown Unknown Unknown MR Rupert onal Active Unknown 1MR Safe 1.5 and 3T full body MRI compatible - Pump may need interrogation if pump alarms. Pt can follow up with . 2MRI Safe for 1.5 and 3T Patient Care team information Care Team Personnel Name: Beverley Akers Position: [facility] Onco RN Member Role: Primary Care Nurse Name: Emery Acosta RN Position: [facility] ED RN W/OE and Tasks Member Role: Primary Care Nurse Name: Moni Branham MA Position: [facility] [place] Office Staff Member Role: Lifetime Consulting Physician Name: Bianca Lopez RN Position: [facility] RN Member Role: Primary Care Nurse Name: Nolberto York NP Position: [facility] PCO Associate Professional Member Role: Primary Care Nurse Address: [address] [place] [address]- Telecom: Name: Muna Cortes Position: [facility] PCO Associate Professional Member Role: PCP Address: [address] [place] [id number] Telecom: Name: Sofya Gallegos RN Position: [facility] RN Member Role: Primary Care Nurse Care Team Related Persons Name: JESSICA AVILES Name: NIK SORENSEN Name: JESSICA FELDMAN Insurance Providers Guarantor name: INEZ AVILES Health Plan Information #: 1 Payer: MEDICARE PART B OUTPT Member Number: [id number] Policy Number: NA Group Number: NA Health Plan Information #: 2 Payer: [facility] Member Number: [id number] Policy Number: NA Group Number: NA
== END 2024-05-10 14:02 | disposition home or self-care (01) ==
LOC: HO.HOP 11:23
PROVIDERS: PCP Student in an Organized Health Care Education/Training Program; Visit Provider Psychiatry & Neurology Psychiatry
DX: F43.12 Post-traumatic stress disorder, chronic (principal); F33.42 Major depressive disorder, recurrent, in full remission
CPT/HCPCS: 99213

== ENCOUNTER 2024-06-09 06:11 | Day surgery (SDC) | payer MEDICARE, MEDICAID, SELFPAY ==
[2024-06-06 15:48] VITALS: BMI 35.3
[2024-06-07 09:47] VITALS: BMI 36.3
[2024-06-09] VITALS (13 sets, daily range): BP systolic 94–122; BP diastolic 59–73; PULSE 87–109; RESP 12–18; TEMP 36.1–37.1; O2SAT 92–98; BMI 36.3
--- OUTSIDE RECORDS SUMMARY | 2024-06-09 06:13 | XMS_ITS | Encounter Summary ---
Author Organization [facility] Address [address] [place] [address] Care Team Providers Care Elastic Cutter Name Role Phone Muna Quiroz Primary Care Provider [phone] Reason for Visit * Reason Onset Date Comments ? lab test 06/19/2022 Encounter Details Date Type Department Care Team (Late st Contact Info) Description 06/19/2022 Telephone [facility] [address] [place] [address] [phone] Telephone Intake, Staff ? lab test Social History Tobacco Use Types Packs/Day Years Used Date Smoking Tobacco: Never Smokeless Tobacco: Never Sex and Gender Information Value Date Recorded Sex Assigned at Male 03/05/2022 8:54 AM EDT Legal Sex Male 1:00 PM EDT Gender Identity Male 03/05/2022 8:54 AM EDT Sexual Orientation Straight 03/05/2022 8: 54 AM EDT documented as of this encounter Miscellaneous Notes * Telephone Encounter - Charmaine Kirkland - 06/19/2022 8:46 AM EST Caller: August - Reason for call - lab request Tel: Provider: Dr Yocasta Travis call from [facility] - Concerning test listed below, they cannot run this tesst and was wondering if there was another test to replace, [facility] lab is aware that a message was geneva sent to question. Pt is scheduled for follow up 08/04/2022, please advise, ty Autoimmune Neurology Antibody Comprehensive Panel w/ Reflex, Serum (Order [id number]) documented in this encounter Plan of Treatment Not on file documented as of this encounter Visit Diagnoses Not on filedocumented in this encounter Care Teams Elastic Cutter Relationship Specialty Start Date End Date Muna Quiroz [address] [place], [place] [address] PCP - General 05/28/22 documented as of this encounter
--- OUTSIDE RECORDS SUMMARY | 2024-06-09 06:13 | XMS_ITS | Referral Summary ---
Author Organization [facility] Address [address] [place] [address] Care Team Providers Care Harmonica Maker Name Role Phone Muna Quiroz Primary Care Provider [phone] Allergies Active Allergy Reactions Criticality Noted Date Comments Dabigatran Etexilate Cough 03/05/2022 Lisinopril Cough 03/05/2022 Medications Eliquis 5 mg tablet Take 5 mg by mouth. 0 Active clonazePAM (KlonoPIN) 1 mg tablet SMARTSI Milligram(s) By Mouth Twice Daily Active ezetimibe (ZETIA) 10 mg tablet Take 10 mg by mouth once a day. Active pantoprazole DR (PROTONIX) 40 mg tablet Take 40 mg by mouth 2 times a day. Active QUEtiapine (SEROquel) 25 mg tablet TAKE 1 TABLET BY MOUTH TWICE DAILY DIRECTED. MAY TAKE ADDITIONAL TABLET DAILY NEEDED FOR ANXIETY AGITATION CAUTION FOR SEDATION AND DIZZINESS Active rosuvastatin (CRESTOR) 40 mg tablet Take 40 mg by mouth once a day. Active tiZANidine (ZANAFLEX) 4 mg tablet Take 4 mg by mouth every 3 hours as needed. Active QUEtiapine (SEROquel) 100 mg tablet Take 100 mg by mouth nightly. Active baclofen (2,000 mcg/mL) 80,000 mcg by intrathecal route once. Active magnesium gluconate (MAGONATE) 27 mg magnesium (500 mg) tablet Take 500 mg by mouth once a day. Active fexofenadine (RADHA) 180 mg tablet Take 180 mg by mouth once a day. Active rimegepant ODT 75 mg (Nurtec ODT) 75 mg tablet,disintegratin g disintegrating tabletIndications:mi graine,requires abortive medication, contraindications to NSAIDS and triptans Dissolve 1 tablet (75 mg total) in the mouth as needed (for abortive therapy for migraine) for up to 10 doses Indications: a migraine headache, requires abortive medication, contraindications to NSAIDS and triptans. Do not take more than 3 days in a given week 10 tablet 2 023 Active ondansetron (ZOFRAN ODT) 4 mg disintegrating tablet Dissolve 1 tablet (4 mg total) in the mouth as needed for nausea or vomiting for up to 8 doses. 8 tablet 023 Active galcanezumab-gnlm (Emgality Pen) 120 mg/mL pen injector Inject 1 mL (120 mg total) every 30 days. 3 mL 1 06/03/19 25 10:46 AM EST 024 Active Active Problems Problem Noted Date Diagnosed Date Bilateral occipital neuralgia 06/18/2022 Abnormal gait due to muscle weakness 05/28/2022 Anemia 05/28/2022 CAD in [place] artery 05/28/2022 Campylobacter diarrhea 05/28/2022 Cardiomyopathy 05/28/2022 Cerebral embolism 05/28/2022 Class 1 obesity 05/28/2022 Deformity of knee joint 05/28/2022 Depressive disorder 05/28/2022 Diarrhea 05/28/2022 Disability of walking 05/28/2022 Disease of anterior pituitary 05/28/2022 RUQ pain 05/28/2022 Hypercholesterolemia 05/28/2022 Hyperprolactinemia 05/28/2022 Hyperglycemia 05/28/2022 Impingement syndrome, shoulder, left 05/28/2022 Left knee injury 05/28/2022 Left spastic hemiparesis (CMS/HCC) 05/28/2022 Left spastic hemiplegia (CMS/HCC) 05/28/2022 Muscle spasticity 05/28/2022 Obstructive sleep apnea syndrome 05/28/2022 Paresis of lower extremity 05/28/2022 Atrial fibrillation 05/28/2022 Penile pain 05/28/2022 Severe obesity (BMI 35.0-39.9) with comorbidity 05/28/2022 Thrombophlebitis of deep veins of lower extremit y 05/28/2022 Umbilical hernia 05/28/2022 Vitamin D deficiency 05/28/2022 Hypertension 04/07/2019 Immunizations Name Administration Dates Next Due Influenza, Injectable, Quadrivalent, Preservativ e Free 01/14/2021,01/18/2020 Social History Tobacco Use Types Packs/Day Years Used Date Smoking Tobacco: Never Smokeless Tobacco: Never Tobacco Cessation:Counseling Given: Not Answered Sex and Gender Information Value Date Recorded Sex Assigned at Male 03/05/2022 8:54 AM EDT Legal Sex Male 1:00 PM EDT Gender Identity Male 03/05/2022 8:54 AM EDT Sexual Orientation Straight 03/05/2022 8: 54 AM EDT Last Filed Vital Signs Vital Sign Reading Time Taken Comments Blood Pressure 113/78 08/19/2022 9:45 AM EDT Pulse 67 08/19/2022 9:45 AM EDT Temperature 35.9 ??C (96.7 ??F) 05/28/2022 10:[address] Respiratory Rate - - Oxygen Saturation - - Inhaled Oxygen Concentration - - Weight - - Height - - Body Mass Index - - Plan of Treatment Not on file Insurance MEDICARE [facility] Care Teams Harmonica Maker Relationship Specialty Start Date End Date RichieMuna [address] [place] [address] PCP - General 05/28/22
--- OUTSIDE RECORDS SUMMARY | 2024-06-09 06:13 | XMS_ITS | Data Portability ---
Author Organization [place] [facility] Address [address] [place] [id number] Care Team Providers Care Full Stack Python Developer Name Role Phone CATRACHITO VILLANUEVA Primary Care Provider Assessment Encounter Date Assessment Date Assessment LastModified by Organization Details LastModified Time 04/07/2019 04/07/2019 Overview/History : Pt is a 43yo M with PMH sig for Afib, CVA with left sided deficit, HTN, HLD. Pt reports that he fell yesterday transferring into his wheelchair. States he fell between the wheelchair and the side table. He denies hitting his head but reports pain and bruising to his left jaw line. He denies loss of conciousness. He does report vomiting within 30min of fall, but states it was r/t his pain meds. Pt denies ever vomiting from pain meds in the past. Pt also reports pain and bruising to his left rib area related to the fall. Exam: Pt is A/Ox3, non-toxic appearing, CN I-XII WNL, PERRLA, normal coordination on the right, poor coordination and strength on the left per baseline d/t prior CVA affecting left side. VSS, HRR, resp reg and unlabored on RA, lungs CTA bilat. Contusion noted to the left jaw line, no popping or clicking of TMJ noted, mild tenderness with palpation of the jaw line. Contusion noted to the left ribs, mild tenderness with palpation. DDx considered, but not limited to: Contusion of ribs and jaw: likely given bruising, mild tenderness with palpation Fractures: possible given recent fall, however pt denies pain with chewing, talking to jaw or pain with breathing or coughing to the ribs Concussion: possible given pt reports vomiting within 30min of fall yesterday Subdural hematoma: possible riske given pt is on blood thinnners and reports vomiting within 30min of fall. No change in mental status, and no subsequent vomiting reported. Work up/Results: Pt declined offer of xrays at this time. Plan/Discussion: Discussed risks of possible internal bleeding, including a bleed in the brain related to recent fall with vomiting and jaw pain after fall. Pt verbalized understanding of these risks and opted to sign AMA declining to be evaluated further at the hospital. Based on exam performed, pt was neurologically intact with left sided weakness which is baseline for pt. Pt was advised to continue with use of PRN pain meds and heat and ice as needed for discomfort and to follow up with PCP if sx fail to improve over the next week or so. Patients PCP contacted and updated on patient status. Patient verbalized understanding of discharge instructions and when to follow up with PCP/911/ED as needed. Patient in agreement with current plan and treatment. Time On Scene with Patient: 00:34:37 [email or web address] Not available 04/07/2019 15:19:52 Plan of Treatment Reminders Order Date Submit Date Provider Last Modified By Organization Details Last Modified Time Details Appointments None record ed. Lab None record ed. Referral None record ed. Procedures None record ed. Surgeries None record ed. Imaging None record ed. Medication Orders None record ed. Patient TargetsNo targets recorded. Patient Instructions Encounter Date Encounter Id Patient Instructions Last Modified By Organization Details Last Modified Time 04/07/2019 [id number] Thank you for yo ur visit with [facility] today. You were evaluated for a head injury today. At this time, you do not appear to have evidence of a serious injury such as bleeding. However, your condition can jacket changer the next 24-48 hours. We recommend that you designate a friend or family member to observe you over the next few days to ensure that your condition is progressing normally. Please seek immediate medical attention if you have an increased headache, persistent headache, vomiting, weakness, confusion or visual problems. We recommend that you do not resume contact sports or activities that take coordination or balance such as skiing or riding a bicycle until cleared to do so by your doctor or by a neurologist. You appear to have bruised your jaw and your ribs. We recommend that you use your pain medication as ordered for symptom control and apply heat and ice to help as well. If sx worsen and/or fail to resolve over the next week or so please follow up with your PCP for further evaluation. If you develop any new or worsening symptoms and need after hours care, please go to nearest ER and/or call 911. If you have additional concerns or develop a change in your condition between 8am-10pm, please call [facility] at [phone] to help navigate your care. pedro luis Not available 04/07/2019 14:22:21 Reason for Referral None Reported. Problems Name Problem SNOMED Code Status Onset Date Resolution Date Notes Provider Name and Address Organization Details Recorded Time Hypertensive disorder 19758766 Active 2018 SOHAN GAINES NP [address], [place], [address], [place] [facility] 9 13:59:42 Problem Notes None recorded. Medical Equipment None Reported. Allergies Allergen ID Allergen Name Allergen Category Reaction Reaction Severity Criticality Documentation Date Start Date Code Code System Note Provider Name and Address Organization Details Recorded Time 66948 lisinopri l medicatio n Not available Not available Not available 04/07/2019 35950 RxNorm SOHAN GAINES NP [address] [place], [address], [place] [facility] 9 13:54:25 44889 Pradaxa medicatio n Not available Not available Not available 04/07/2019 67127 46 RxNorm SOHAN GAINES NP [address], [place], [address], [place] [facility] 9 13:55:40 Medications Name Sig Start Date Stop Date Status Note LastModified by Organization Details LastModified Time celecoxib 200 mg capsule 04/07 completed Not Available Not Available Not Available fentanyl 50 mcg/hr transdermal patch active Not Available Not Available Not Available gabapentin 600 mg tablet 04/07 completed Not Available Not Available Not Available doxycycline hyclate 100 mg capsule 04/07 completed Not Available Not Available Not Available azithromycin 250 mg tablet 04/07 completed Not Available Not Available Not Available tizanidine 4 mg tablet 04/07 completed Not Available Not Available Not Available hydrocodone 5 mg-acetaminophen 325 mg tablet 04/07 completed Not Available Not Available Not Available dantrolene 50 mg capsule 04/07 completed Not Available Not Available Not Available desmopressin 0.2 mg tablet active Not Available Not Available No t Available gabapentin 400 mg capsule 04/07 completed Not Available Not Available Not Available clonazepam 1 mg tablet active Not Available Not Available Not Available Myobloc 10,000 unit/2 mL intramuscular solution 04/07 completed Not Available Not Available Not Available sulfamethoxazole 800 mg-trimethoprim 160 mg tablet 04/07 completed Not Available Not Available Not Available hydrocodone 10 mg-acetaminophen 325 mg tablet active Not Available Not Availabl e Not Available fenofibrate micronized 200 mg capsule active Not Available Not Available N ot Available baclofen 20 mg tablet active Not Available Not Available Not Available citalopram 20 mg tablet active Not Available Not Available Not Available pantoprazole 40 mg tablet,delayed release active Not Available Not Available Not Available buspirone 10 mg tablet 04/07 completed Not Available Not Available Not Available warfarin 5 mg tablet 04/07 completed Not Available Not Available Not Available cabergoline 0.5 mg tablet active Not Available Not Available No t Available losartan 25 mg tablet 04/07 completed Not Available Not Available Not Available gabapentin 300 mg capsule active Not Available Not Available N ot Available fentanyl 75 mcg/hr transdermal patch 04/07 completed Not Available Not Available Not Available doxycycline hyclate 100 mg tablet 04/07 completed Not Available Not Available Not Available amoxicillin 875 mg-potassium clavulanate 125 mg tablet 04/07 completed Not Available Not Available Not Available buspirone 15 mg tablet active Not Available Not Available Not Available oxycodone 5 mg tablet 04/07 completed Not Available Not Available Not Available enoxaparin 80 mg/0.8 mL subcutaneous syringe 04/07 completed Not Available Not Available Not Available enoxaparin 100 mg/mL subcutaneous syringe 04/07 completed Not Available Not Available Not Available ciclopirox 0.77 % topical cream 04/07 completed Not Available Not Available Not Available enoxaparin 120 mg/0.8 mL subcutaneous syringe active Not Available Not Available Not Available clonazepam 0.25 mg disintegrating tablet 04/07 completed Not Available Not Available Not Available metoprolol tartrate 25 mg tablet active Not Available Not Available Not Available duloxetine 30 mg capsule,delayed release 04/07 completed Not Available Not Available Not Available oxycodone 10 mg tablet 04/07 completed Not Available Not Available Not Available diclofenac 1 % topical gel 04/07 completed Not Available Not Available Not Available azelastine 205.5 mcg (0.15 %) nasal spray active Not Available Not Available Not Available Xarelto 20 mg tablet 04/07 completed Not Available Not Available Not Available Vitals Date Recorded Heart rate Respiratory rate Body temperature Oxygen saturation Oxygen saturation in Arterial blood by Pulse oximetry Systolic blood pressure Diastolic blood pressure Provider Name and Address Organization Details Last Updated DateTime 9 75 /min 12 /min 97.5 [degF] 97 % 97 % 112 mm[Hg] 66 mm[Hg] Not Available [facility] 9 13:58:46 Social History Question Answer Notes LastModified by Organizat ion Details LastModified Time Tobacco Smoking Status Former Smoker SOHAN GAINES, SCOW DERRICK OPERATOR [address] [place], [address], [place] [facility] 04/07/2019 14:01:15 Do You Have An Advance Directive? Yes Information not available 04/07/2019 What Is Your Code Status? Full Code Information not available 04/07/2019 Drugs Abused None Information not available 04/07/2019 How Many Days In The Past Year Have You Had A Heavy Drinking Consumption (4+ Female, 5+ Male)? 0 Information not available 04/07/2019 Marital Status Informatio n not available 04/07/2019 What Was The Date Of Your Most Recent Tobacco Screening? 04/07/2019 Information not available 04/08/2019 Sex: Unknown Functional Status None recorded. Mental Status None recorded. Family History Relationship Description Onset Age of this Age Resolved Age Notes LastModified by Organization Details LastModified Time Father No current problems or disability [email or web address] Not available 10/2018 14:01:09 Mother No current problems or disability [email or web address] Not available 10/2018 14:01:09 Medical History Condition Response Diabetes N Coronary Artery Disease N High Cholesterol Y Cancer N Pulmonary Embolism N Stroke Y Hypertension Y Asthma N COPD N Depression Y Kidney Disease N Past Encounters Encounter ID Performer Location Encounter Start Date Encounter Closed Date Diagnosis/Indication Diagnosis SNOMED-CT Code Diagnosis ICD10 Code Diagnosis Note [id number] SOHAN GAINES NP [facility] [address] [place] [address] 04/07/2019 13:52:52 04/10/2019 13:40:27 Jaw pain 826163629 R68.84 Rib pain 130517717 R07.8 1 Fall on sa me level from slipping, tripping or stumbling 363840185 W01.0XXA Contusion of rib 6496602 06 S20.222A Health Concerns Section Related Observation LastModified by Organization Detai ls LastModified Time None Recorded Concern Status LastModified by Organization Details LastModified Time None Recorded Advance Directives Directive Y: Payers Encounter Date Sequence Insurance Name Policy Number Policy Munguia Covered Member ID Munguia Member ID Guarantor Name 04/07/2019 1 [place] [email or web address] Lenin Hardin [id number] 04/07/2019 2 [place] [facility] Lenin Hardin [id number] Notes Date Note Type Note Provider Name and Address Organization Details Recorded Time 04/07/2019 text/html Pt states that he fell yesterday, states he woke up went to transfer to the wheelchair, lost his balance and fell between the chair and the table. Pt was home alone when fall happened. Pt does not think he hit his head, but reports pain to the left side of his jaw and bruising to his left ribs as well. Denies lossing consciousness, pt reports vomiting after the fall but states it was related to a medication issue, states he vomited about 30min after the fall. Pt states he took a pain killer about 45min before throwing up, pt denies the pain killer normally causing vomiting. SOHAN GAINES NP [address], [place], [address], [place] [facility] 04/07/2019 15:23:13
--- OUTSIDE RECORDS SUMMARY | 2024-06-09 06:13 | XMS_ITS | Clinical Summary ---
Author Organization [facility] Address [address] [place] [address] Care Team Providers Care Charge Account Authorizer Name Role Phone Muna Quiroz Primary Care Provider [phone] Allergies Active Allergy Reactions Criticality Noted Date [...] muscle weakness 05/28/2022 Anemia 05/28/2022 CAD in [place] artery 05/28/2022 Campylobacter diarrhea 05/28/2022 Cardiomyopathy 05/28/2022 [...] Mass Index - - Plan of Treatment Health Maintenance Due Date Last Done Comments Basic Metabolic Panel 1974 Cologuard 1974 Colon Cancer Screening 1974 Colonoscopy 1974 FOBT / Fit Test 1974 HIV Screening 1974 Hepatitis C Screening 1974 Sigmoidoscopy 1974 Hepatitis B Vaccines (1 of 3 - 19+ 3-dose series) 1993 COVID-19 Vaccine (2023- season) 2024 02/18/2022, 07/24/2021, 02/25/2021, Additional history exists Influenza Vaccine (#1) 2024 , 02/18/2022, 02/18/2022, Additional history exists Alcohol/Substance Use Screening 05/03/2024 Depression Evaluation 05/03/2024 Social Drivers of Health Annual Screening 05/03/2024 Zoster Vaccines (2 of 2) 2024 02/01/2019 DTaP,Tdap,and Td Vaccines (2 - Td or Tdap) 08/13/2032 08/13/2022 RSV Vaccine (60+ years old and patients) (1 - 1-dose 75+ series) 2049 Pneumococcal Vaccine: Pediatric (0-5 Years) and At-Risk Patients (6-64 Years) Aged Out No longer eligible based on patient's age to complete this topic Insurance MEDICARE [facility] Care Teams Charge Account Authorizer Relationship Specialty Start Date End Date Muna Quiroz [address] [place] [address] PCP - General 05/28/22
--- OUTSIDE RECORDS SUMMARY | 2024-06-09 06:13 | XMS_ITS | Continuity of Care Document ---
Author Organization [facility] Address [address] [place] [address]- Care Team Providers Care Apparel Sales Leader Name Role Phone Muna Cortes Primary Care Lexi mcneal Encounter [facility] ACCT R [id number] Date(s): 04/17/24 - 05/17/[address] [address]- Encounter Type: Triage Allergies, Adverse Reactions, Alerts [...] 01/18/20 Kalia rded tetanus/diphtheria/pertussis, acel(Tdap) 08/13/22 Given [id number] bivalent booster vax 02/18/22 Recorded Influenza Virus Vaccine (oldterm) 01/14/21 Recorde d Influenza Virus Vaccine (oldterm) 02/01/19 Recorde d zoster vaccine, inactivated 02/01/19 Recorded 1Result Comment: Administered at [email or web address] 24 Hour Allergy = 180 mg, By Mouth, Daily, 0 Refills, Maintenance, 08/20/21 10:36:00 AM EDT, Partial fill upon patient request if the prescription is for a schedule II opioid drug. Start Date: 08/20/21 Status: Ordered Repeat number: 1 amLODIPine 5 mg oral tablet 1 tablet, By Mouth, Daily, # 90 tablet, 1 Refills, Maintenance, 05/11/24 10:47:00 AM EST, [facility] #[id number], 183, cm, 05/05/24 13:30:00 EST, Height, 69.2, kg, 06/16/23 19:29:00 EST, Dry Weight Start Date: 05/11/24 Status: Ordered Quantity: 90.0 Unit: tablet Repeat [...] Refills, Maintenance, 07/27/22 3:13:00 PM EDT, Tablet, [facility] #[id number], Partial fill upon patient request if the [...] Refills, Maintenance, 11/29/23 9:25:00 AM EDT, Tablet, [facility] #[id number], Partial fill upon patientrequest if the prescription [...] 1 Refills, Maintenance, 03/08/24 3:50:00 PM EST, [facility] #[id number], 183, cm, 03/06/24 14:17:00 EST, Height, 69.2, kg, 06/16/23 19:29:00 EST, Dry Weight Start Date: 03/08/24 Status: Ordered Quantity: 90.0 Unit: tablet Repeat number: 2 Fax to [facility] Fax to [facility], See Instructions, # 1 each, [...] 11, Tot. Refills 11, Maintenance, DME: [facility]. Diagnosis: Obstructive sleep apnea, G [...] 2:37:00 PM EST, Route to Pharmacy Electronically, [facility] #[id number], Partial fill upon patientrequest if the prescription [...] Maintenance, 10/01/23 10:58:00 AM EDT, ER Tablet, [facility] #[id number], Partial fill upon patient request if the [...] 5:14:00 PM EDT, Route to Pharmacy Electronically, [facility] #[id number], Partial fill upon patient request if the [...] CVA (cerebrovascular accident) Confirmed Active CAD in [place] artery Confirmed Active Coronary artery disease Confirmed [...] Unknown Unknown MR Rupert onal Active Unknown Procedure Provider Procedure Date [...] Professional Member Role: Primary Care Nurse [facility] [address] [place] [address]- Telecom: Name: Muna Cortes Position: [facility] PCO Associate Professional Member Role: PCP Address: [address] [place] [address]. [address] [place] [address]- Telecom: Name: Sofya Gallegos RN Position: S RN Member Role: Primary Care Nurse Care Team Related Persons Name: JESSICA AVILES Name: NIK SORENSEN Name: JESSICA FELDMAN Insurance Providers Guarantor name: INEZ AVILES Health Plan Information #: 1 Payer: MEDICARE PART B OUTPT Member Number: NA Policy Number: NA Group Number: NA Health Plan Information #: 2 Payer: [facility] Member Number: NA Policy Number: NA Group Number: NA
--- OUTSIDE RECORDS SUMMARY | 2024-06-09 06:13 | XMS_ITS | Continuity of Care Document ---
Author Organization [facility] Adult Address [address] [place] [address]- Care Team Providers Care Spray Painting Machine Operator Name Role Phone Muna Cortes Primary Care Lexi mcneal Encounter [facility] ACCT R [id number] Date(s): 05/01/24 - 05/31/[address] [address]- Encounter Type: Triage Allergies, Adverse Reactions, Alerts [...] 01/18/20 Kalia rded tetanus/diphtheria/pertussis, acel(Tdap) 08/13/22 Given [id number] bivalent booster vax 02/18/22 Recorded Influenza Virus Vaccine (oldterm) 01/14/21 Recorde d Influenza Virus Vaccine (oldterm) 02/01/19 Recorde d zoster vaccine, inactivated 02/01/19 Recorded 1Result Comment: Administered at [facility] 24 Hour Allergy = 180 mg, By Mouth, Daily, 0 Refills, Maintenance, 08/20/21 10:36:00 AM EDT, Partial fill upon patient request if the prescription is for a schedule II opioid drug. Start Date: 08/20/21 Status: Ordered Repeat number: 1 amLODIPine 5 mg oral tablet 1 tablet, By Mouth, Daily, # 90 tablet, 1 Refills, Maintenance, 05/11/24 10:47:00 AM EST, [facility] #[id number], 183, cm, 05/05/24 13:30:00 EST, Height, 69.2, [...] Refills, Maintenance, 07/27/22 3:13:00 PM EDT, Tablet, [facility] #[id number], Partial fill upon patient request if the [...] Refills, Maintenance, 11/29/23 9:25:00 AM EDT, Tablet, [facility] #[id number], Partial fill upon patientrequest if the prescription [...] 1 Refills, Maintenance, 03/08/24 3:50:00 PM EST, [facility] #[id number], 183, cm, 03/06/24 14:17:00 EST, Height, 69.2, kg, 06/16/23 19:29:00 EST, Dry Weight Start Date: 03/08/24 Status: Ordered Quantity: 90.0 Unit: tablet Repeat number: 2 Fax to [facility] Fax to [facility], See Instructions, # 1 each, Refills 11, [...] 11, Tot. Refills 11, Maintenance, DME: [facility]. Diagnosis: Obstructive sleep apnea, G 47.33 Device: iVAPS, target Va 11.8, EPAP 10, min PS 4, max PS 16, RR 16, heated medication. PAP supplies Length of need: 99., 05/06/21 3:13:00 PM EST, [facility] Start Date: 05/06/21 Status: Ordered Quantity: 1.0 [...] 2:37:00 PM EST, Route to Pharmacy Electronically, [facility] #[id number], Partial fill upon patientrequest if the prescription [...] Maintenance, 10/01/23 10:58:00 AM EDT, ER Tablet, [facility] #[id number], Partial fill upon patient request if the [...] 5:14:00 PM EDT, Route to Pharmacy Electronically, [facility] #[id number], Partial fill upon patient request if the [...] CVA (cerebrovascular accident) Confirmed Active CAD in [place] artery Confirmed Active Coronary artery disease Confirmed [...] Care Team Personnel Name: Beverley Akers Position: [facility] Onco RN Member Role: Primary Care Nurse Name: Emery Acosta RN Position: [facility] ED RN W/OE and Tasks Member Role: Primary Care Nurse Name: Moni Branham [place] Position: [facility] [place] Office Staff Member Role: Lifetime Consulting Physician Name: Bianca Lopez RN Position: [facility] RN Member Role: Primary Care Nurse Name: Nolberto York NP Position: [facility] PCO Associate Professional Member Role: Primary Care Nurse Address: [address] [place] [address] [address] [place] [address]- Telecom: Name: Muna Cortes Position: [facility] PCO Associate Professional Member Role: PCP Address: [address] [place] [address]. [address] [place] [address]- Telecom: Name: Sofya Gallegos RN Position: [facility] RN Member Role: Primary Care Nurse Care Team Related Persons Name: JESSICA AVILES Name: NIK SORENSEN Name: JESSICA FELDMAN Insurance Providers Guarantor name: INEZ AVILES Health Plan Information #: 1 Payer: MEDICARE PART B OUTPT Member Number: NA Policy Number: NA Group Number: NA Health Plan Information #: 2 P[facility] Member Number: NA Policy Number: NA Group Number: NA
--- OUTSIDE RECORDS SUMMARY | 2024-06-09 06:13 | XMS_ITS | Clinical Summary ---
Author Organization [facility] Address [address] [place] [address] Care Team Providers Care Electronic Systems Security Assessment Name Role Phone Bob Benitez MD Primary Care Provider Social History Tobacco Use Types Packs/Day Years Used Date Smoking Tobacco: Never Assessed Sex and Gender Information Value Date Recorded Sex Assigned at Not on file Gender Identity Not on file Sexual Orientation Not on file Job Start Date Occupation Industry Not on file Not on file Not on file Last Filed Vital Signs Vital Sign Reading Time Taken Comments Blood Pressure - - Pulse - - Temperature - - Respiratory Rate - - Oxygen Saturation - - Inhaled Oxygen Concentration - - Weight 114 kg (252 lb) 02/28/2024 9:21 AM EDT Height 182.9 cm (6') 02/28/2024 9:21 AM EDT Body Mass Index 34.18 02/28/2024 9:21 AM EDT Plan of Treatment Upcoming Encounters Date Type Department Care Team (Late st Contact Info) Description 07/04/2024 11:45 AM EST Office Visit Orth[facility] - [place] [address] [address] Lulu Gutierrez MD [address] [phone] Health Maintenance Due Date Last Done Comments Hepatitis B Vaccines (1 of 3 - 19+ 3-dose series) 1993 Cholesterol Screening (Lipid Panel) 04/04/2022 Colorectal Cancer Screening: Colonoscopy 04/04/2022 Depression Screening 04/04/2022 HIV Screening 04/04/2022 Hepatitis C Screening 04/04/2022 Medicare Annual Wellness Visit 04/04/2022 Social Influencers of Health Screening 04/04/2022 COVID-19 Vaccine ( season) 2024 02/16/2023, 02/18/2022, 07/24/2021, Additional history exists Influenza Vaccine (#1) 2024 , 02/18/2022, 01/14/2021, Additional history exists Hypertension/CHF/CAD Annual BMP Blood Test 03/04/2024 DTaP,Tdap,and Td Vaccines (2 - Td or Tdap) 08/13/2032 08/13/2022 HIB Vaccines Aged Out No longer eligi ble based on patient's age to complete this topic HPV Vaccines Aged Out No longer eligi ble based on patient's age to complete this topic Hepatitis A Vaccines Aged Out No long er eligible based on patient's age to complete this topic IPV Vaccines Aged Out No longer eligi ble based on patient's age to complete this topic MMR Vaccines Aged Out No longer eligi ble based on patient's age to complete this topic Meningococcal ACWY Vaccine Aged Out N o longer eligible based on patient's age to complete this topic Pneumococcal Vaccine: Pediatrics (0 to 5 Years) and At-Risk Patients (6 to 64 Years) Aged Out No longer eligible based on patient's age to complete this topic RSV Immunization Patients Under 20 months Aged Out No longer eligible based on patient's age to complete this topic Varicella Vaccines Aged Out No longer eligible based on patient's age to complete this topic Care Teams Electronic Systems Security Assessment Relationship Specialty Start Date End Date Bob Benitez MD [address] [place] [address] PCP - General 01/22/22
--- OUTSIDE RECORDS SUMMARY | 2024-06-09 06:14 | XMS_ITS | Continuity of Care Document ---
Author Organization [facility] Adult Address [address] [place] [address]- Care Team Providers Care Reservationist Name Role Phone Muna Cortes Primary Care Lexi [facility]cneal [id number]19[facility] - 05/19/[address] [address]- Encounter Type: Triage Allergies, Adverse Reactions, Alerts [...] 01/18/20 Kalia rded tetanus/diphtheria/pertussis, acel(Tdap) 08/13/22 Given [id number] bivalent booster vax 02/18/22 Recorded Influenza Virus Vaccine (oldterm) 01/14/21 Recorde d Influenza Virus Vaccine (oldterm) 02/01/19 Recorde d zoster vaccine, inactivated 02/01/19 Recorded 1Result Comment: Administered at [facility] 24 Hour Allergy = 180 mg, By Mouth, Daily, 0 Refills, Maintenance, 08/20/21 10:36:00 AM EDT, Partial fill upon patient request if the prescription is for a schedule II opioid drug. Start Date: 08/20/21 Status: Ordered Repeat number: 1 amLODIPine 5 mg oral tablet 1 tablet, By Mouth, Daily, # 90 tablet, 1 Refills, Maintenance, 05/11/24 10:47:00 AM EST, [facility] #[id number], 183, cm, 05/05/24 13:30:00 EST, Height, 69.2, [...] Refills, Maintenance, 07/27/22 3:13:00 PM EDT, Tablet, [facility] #[id number], Partial fill upon patient request if the [...] Refills, Maintenance, 11/29/23 9:25:00 AM EDT, Tablet, [facility] #[id number], Partial fill upon patientrequest if the prescription [...] 1 Refills, Maintenance, 03/08/24 3:50:00 PM EST, [facility] #[id number], 183, cm, 03/06/24 14:17:00 EST, Height, 69.2, kg, 06/16/23 19:29:00 EST, Dry Weight Start Date: 03/08/24 Status: Ordered Quantity: 90.0 Unit: tablet Repeat number: 2 Fax to [facility] Fax to [facility], See Instructions, # 1 each, Refills [...] Refills 11, Tot. Refills 11, Maintenance, DME: [facility]. Diagnosis: Obstructive sleep apnea, G 47.33 Device: [...] 2:37:00 PM EST, Route to Pharmacy Electronically, [facility] #[id number], Partial fill upon patientrequest if the prescription [...] Maintenance, 10/01/23 10:58:00 AM EDT, ER Tablet, [facility] #[id number], Partial fill upon patient request if the [...] 5:14:00 PM EDT, Route to Pharmacy Electronically, [facility] #[id number], Partial fill upon patient request if the [...] CVA (cerebrovascular accident) Confirmed Active CAD in [place] artery Confirmed Active Coronary artery disease Confirmed [...] Care Team Personnel Name: Beverley Akers Position: [facility] Onco RN Member Role: Primary Care Nurse Name: Emery Acosta RN Position: [facility] ED RN W/OE and Tasks Member Role: Primary Care Nurse Name: Moni Branham [place] Position: [facility] [place] Office Staff Member Role: Lifetime Consulting Physician Name: Bianca Lopez RN Position: [facility] RN Member Role: Primary Care Nurse Name: Nolberto York NP Position: [facility] PCO Associate Professional Member Role: Primary Care Nurse Address: [address] [place] [address] [address]rd [place] [address]- Telecom: Name: Muna Cortes Position: [facility] PCO Associate Professional Member Role: PCP Address: [address] [place] [address]. [address] [place] [address]- Telecom: Name: Sofya Gallegos RN Position: [facility] RN Member Role: Primary Care Nurse Care Team Related Persons Name: JESSICA AVILES Name: NIK SORENSEN Name: JESSICA FELDMAN Insurance Providers Guarantor name: INEZ AVILES Health Plan Information #: 1 Payer: MEDICARE PART B OUTPT Member Number: NA Policy Number: NA Group Number: NA Health Plan Information #: 2 Payer: [facility] Member Number: NA Policy Number: NA Group Number: NA
--- OUTSIDE RECORDS SUMMARY | 2024-06-09 06:14 | XMS_ITS | Continuity of Care Document ---
Author Organization [facility] Adult Address [address] [place] [address]- Care Team Providers Care Development Advisor Name Role Phone Muna Cortes Primary Care Lexi mcneal Encounter [facility] ACCT R [id number] Date(s): 05/01/24 - 05/31/[address] [address]- Encounter Type: Triage Allergies, Adverse Reactions, Alerts [...] 01/18/20 Kalia rded tetanus/diphtheria/pertussis, acel(Tdap) 08/13/22 Given [id number] bivalent booster vax 02/18/22 Recorded Influenza Virus Vaccine (oldterm) 01/14/21 Recorde d Influenza Virus Vaccine (oldterm) 02/01/19 Recorde d zoster vaccine, inactivated 02/01/19 Recorded 1Result Comment: Administered at [facility] 24 Hour Allergy = 180 mg, By Mouth, Daily, 0 Refills, Maintenance, 08/20/21 10:36:00 AM EDT, Partial fill upon patient request if the prescription is for a schedule II opioid drug. Start Date: 08/20/21 Status: Ordered Repeat number: 1 amLODIPine 5 mg oral tablet 1 tablet, By Mouth, Daily, # 90 tablet, 1 Refills, Maintenance, 05/11/24 10:47:00 AM EST, [facility] #[id number], 183, cm, 05/05/24 13:30:00 EST, Height, 69.2, [...] Refills, Maintenance, 07/27/22 3:13:00 PM EDT, Tablet, [facility] #[id number], Partial fill upon patient request if the [...] Refills, Maintenance, 11/29/23 9:25:00 AM EDT, Tablet, [facility] #[id number], Partial fill upon patientrequest if the prescription [...] 1 Refills, Maintenance, 03/08/24 3:50:00 PM EST, [facility] #[id number], 183, cm, 03/06/24 14:17:00 EST, Height, 69.2, kg, 06/16/23 19:29:00 EST, Dry Weight Start Date: 03/08/24 Status: Ordered Quantity: 90.0 Unit: tablet Repeat number: 2 Fax to [facility] Fax to [facility], See Instructions, # 1 each, Refills 11, [...] 11, Tot. Refills 11, Maintenance, DME: [facility]. Diagnosis: Obstructive sleep apnea, G 47.33 Device: [...] 2:37:00 PM EST, Route to Pharmacy Electronically, [facility][id number], Partial fill upon patientrequest if the prescription [...] Maintenance, 10/01/23 10:58:00 AM EDT, ER Tablet, [facility] #[id number], Partial fill upon patient request if the [...] 5:14:00 PM EDT, Route to Pharmacy Electronically, [facility] #[id number], Partial fill upon patient request if the [...] CVA (cerebrovascular accident) Confirmed Active CAD in [place] artery Confirmed Active Coronary artery disease Confirmed [...] Care Team Personnel Name: Beverley Akers Position: [facility] Onco RN Member Role: Primary Care Nurse Name: Emery Acosta RN Position: [facility] ED RN W/OE and Tasks Member Role: Primary Care Nurse Name: Moni Branham [place] Position: [facility] [place] Office Staff Member Role: Lifetime Consulting Physician Name: Bianca Lopez RN Position: [facility] RN Member Role: Primary Care Nurse Name: Nolberto York NP Position: [facility] PCO Associate Professional Member Role: Primary Care Nurse Address: [address] [place] [address] [address]rd [place] [address]- Telecom: Name: Muna Cortes Position: [facility] PCO Associate Professional Member Role: PCP Address: [address] [place] [address]. [address]rd [place] [address]- Telecom: Name: Sofya Gallegos RN Position: [facility] RN Member Role: Primary Care Nurse Care Team Related Persons Name: JESSICA AVILES Name: NIK SORENSEN Name: JESSICA FELDMAN Insurance Providers Guarantor name: INEZ AVILES Health Plan Information #: 1 Payer: MEDICARE PART B OUTPT Member Number: NA Policy Number: NA Group Number: NA Health Plan Information #: 2 P[facility]: [facility] Member Number: NA Policy Number: NA Group Number: NA
--- OUTSIDE RECORDS SUMMARY | 2024-06-09 06:14 | XMS_ITS | Encounter Summary ---
Author Organization [facility] Address [address] [place] [address] Care Team Providers Care Manager Cable Name Role Phone Bob Benitez MD Primary Care Provider [phone] Encounter Details Date Type Department Care Team (Late st Contact Info) Description 07/29/2018 Scanned Document [facility] 85 [facility] [address] [place] [phone] Beth Ponce MD Needs Valid Address Social History Tobacco Use Types Packs/Day Years Used Date Smoking Tobacco: Every Day Smokeless Tobacco: Never Alcohol Use Standard Drinks/Week Comments Yes 1 (1 standard drink = 0.6 oz pur e alcohol) AUDIT-C Answer Date Recorded Frequency of Alcohol Consumption Never 03/02/2018 Average Number of Drinks Not on file 018 Frequency of Binge Drinking Not on file 02/02 Sex and Gender Information Value Date Recorded Sex Assigned at Not on file Gender Identity Not on file Sexual Orientation Not on file documented as of this encounter Plan of Treatment Not on file documented as of this encounter Visit Diagnoses Not on filedocumented in this encounter Care Teams Manager Cable Relationship Specialty Start Date End Date Bob Benitez MD [address] [place] [address] - Attn: [facility] [place] [address] PCP - General 01/20/18 documented as of this encounter
--- OUTSIDE RECORDS SUMMARY | 2024-06-09 06:14 | XMS_ITS | Continuity of Care Document ---
Author Organization [facility] Address [address] [place] [address]- Care Team Providers Care X Ray Physician Name Role Phone Valdo CARRILLO, Muna Leong Primary Care P elizabet [id number] Date(s): 04/18/24 - 05/28/24 [facility] [address] [place], [place] [address] Attending Physician: Mariela SHARMA, Rhys Haas Encounter Type: Pre Office Visit Allergies, Adverse Reactions, Alerts Substance [...] 01/18/20 Kalia rded tetanus/diphtheria/pertussis, acel(Tdap) 08/13/22 Given [id number] bivalent booster vax 02/18/22 Recorded Influenza Virus Vaccine (oldterm) 01/14/21 Recorde d Influenza Virus Vaccine (oldterm) 02/01/19 Recorde d zoster vaccine, inactivated 02/01/19 Recorded 1Result Comment: Administered at [facility] 24 Hour Allergy = 180 mg, By Mouth, Daily, 0 Refills, Maintenance, 08/20/21 10:36:00 AM EDT, Partial fill upon patient request if the prescription is for a schedule II opioid drug. Start Date: 08/20/21 Status: Ordered Repeat number: 1 amLODIPine 5 mg oral tablet 1 tablet, By Mouth, Daily, # 90 tablet, 1 Refills, Maintenance, 05/11/24 10:47:00 AM EST, [facility] #[id number], 183, cm, 05/05/24 13:30:00 EST, Height, 69.2, [...] Refills, Maintenance, 07/27/22 3:13:00 PM EDT, Tablet, [facility] #[id number], Partial fill upon patient request if the [...] Refills, Maintenance, 11/29/23 9:25:00 AM EDT, Tablet, [facility] #[id number], Partial fill upon patientrequest if the prescription [...] 1 Refills, Maintenance, 03/08/24 3:50:00 PM EST, [facility] #[id number], 183, cm, 03/06/24 14:17:00 EST, Height, 69.2, kg, 06/16/23 19:29:00 EST, Dry Weight Start Date: 03/08/24 Status: Ordered Quantity: 90.0 Unit: tablet Repeat number: 2 Fax to [facility] Fax to [facility], See Instructions, # 1 each, [...] Refills 11, Tot. Refills 11, Maintenance, DME: [facility]. Diagnosis: Obstructive sleep apnea, G [...] 2:37:00 PM EST, Route to Pharmacy Electronically, [facility] #[id number], Partial fill upon patientrequest if the prescription [...] Maintenance, 10/01/23 10:58:00 AM EDT, ER Tablet, [facility] #[id number], Partial fill upon patient request if the [...] 5:14:00 PM EDT, Route to Pharmacy Electronically, [facility] #[id number], Partial fill upon patient request if the [...] CVA (cerebrovascular accident) Confirmed Active CAD in [place] artery Confirmed Active Coronary artery disease Confirmed [...] Unknown Unknown Unknown Unknown Unknown MR Rupert ibanezal Active Unknown 1MR Safe 1.5 and 3T full body MRI compatible - Pump may need interrogation if pump alarms. Pt can follow up with . 2MRI Safe for 1.5 and 3T Patient Care team information Care Team Personnel Name: Beverley Akers Position: [facility] Onco RN Member Role: Primary Care Nurse Name: Emery Acosta RN Position: [facility] ED RN W/OE and Tasks Member Role: Primary Care Nurse Name: Moni Branham MA Position: [facility] [place] Office Staff Member Role: Lifetime Consulting Physician Name: Bianca Lopez RN Position: [facility] RN Member Role: Primary Care Nurse Name: Nolberto York NP Position: [facility] PCO Associate Professional Member Role: Primary Care Nurse Address: [address] [place] [address] [address] [place] [address]- Telecom: Name: Valdo CARRILLO, Muna Leong Position: [facility] Associate Professional Member Role: PCP Address: [address] [place] [address]. [address] [place] [address]- Telecom: Name: Sofya Gallegos RN Position: [facility] RN Member Role: Primary Care Nurse Care Team Related Persons Name: JESSICA AVILES Name: INK SORENSEN Name: JESSICA FELDMAN Insurance Providers Guarantor name: INEZCHER JARAMILLOGRACIA Health Plan Information #: 1 Payer: MEDICARE PART B OUTPT Member Number: [id number] Policy Number: NA Group Number: NA Health Plan Information #: 2 Payer: [facility] Member Number: [id number] Policy Number: NA Group Number: NA
--- OUTSIDE RECORDS SUMMARY | 2024-06-09 06:14 | XMS_ITS | Continuity of Care Document ---
Author Organization Pre [facility] Address [address] [place] [address]- Care Team Providers Care Engineering Laboratory Technician Name Role Phone Muna Cortes Primary Care P elizabet [place] [facility] [place] [id number] Date(s): 04/28/24 - 05/28/24 Pre Op [facility] [address] [place], [place] [address] Attending Physician: Milad Han Admitting Physician: Milad [...] 01/18/20 Kalia rded tetanus/diphtheria/pertussis, acel(Tdap) 08/13/22 Given [id number] bivalent booster vax 02/18/22 Recorded Influenza Virus Vaccine (oldterm) 01/14/21 Recorde d Influenza Virus Vaccine (oldterm) 02/01/19 Recorde d zoster vaccine, inactivated 02/01/19 Recorded 1Result Comment: [facility] = 180 mg, By Mouth, Daily, 0 Refills, Maintenance, 08/20/21 10:36:00 AM EDT, Partial fill upon patient request if the prescription is for a schedule II opioid drug. Start Date: 08/20/21 Status: Ordered Repeat number: 1 amLODIPine 5 mg oral tablet 1 tablet, By Mouth, Daily, # 90 tablet, 1 Refills, Maintenance, 05/11/24 10:47:00 AM EST, [id number], 183, cm, 05/05/24 13:30:00 EST, Height, 69.2, [...] Refills, Maintenance, 07/27/22 3:13:00 PM EDT, [id number], Partial fill upon patient request if the [...] 11/29/23 9:25:00 AM EDT, Tablet, [facility] #[id number], Partial fill upon patientrequest if the prescription [...] 1 Refills, Maintenance, 03/08/24 3:50:00 PM EST, [id number], 183, cm, 03/06/24 14:17:00 EST, Height, 69.2, kg, 06/16/23 19:29:00 EST, Dry Weight Start Date: 03/08/24 Status: Ordered Quantity: 90.0 Unit: tablet Repeat number: 2 Fax to [facility] Fax to [facility], See Instructions, # 1 each, [...] Refills 11, Tot. Refills 11, Maintenance, DME: [facility]. Diagnosis: Obstructive sleep apnea, G 47.33 [...] 2:37:00 PM EST, Route to Pharmacy Electronically, [facility] #[id number], Partial fill upon patientrequest if the prescription [...] Maintenance, 10/01/23 10:58:00 AM EDT, ER Tablet, [facility] #[id number], Partial fill upon patient request if the [...] 5:14:00 PM EDT, Route to Pharmacy Electronically, [facility] #[id number], Partial fill upon patient request if the [...] CVA (cerebrovascular accident) Confirmed Active CAD in [place] artery Confirmed Active Coronary artery disease Confirmed [...] 1 Unknown Unknown Unknown Unknown Unknown MR Condjoe onal Active Unknown Procedure Provider Procedure Date Device Type Site Unknown Unknown 09/21/12 Unknown Unknown Device Identifier Serial Number Lot or Batch Number Manufacturing Date Expiration Date Distinct Identification Code MRI Safety Implantable Status Assigning Authority Unknown 2 Unknown Unknown Unknown Unknown Unknown MR Condjoe onal Active Unknown 1MR Safe 1.5 and [...] Professional Member Role: Primary Care Nurse Address: [address] [place] [address] [address] [place] [address]- Telecom: Name: Valdo CARRILLO, Muna Leong Position: [facility] PCO Associate Professional Member Role: PCP Address: [address] [place] [address]. [address] [place], [place] [address] Telecom: Name: Sofya Gallegos RN Position: [facility] RN Member Role: Primary Care Nurse Care Team Related Persons Name: JESSICA AVILES Name: NIK SORENSEN Name: JESSICA FELDMAN Insurance Providers Guarantor name: INEZ AVILES Health Plan Information #: 1 Payer: MEDICARE PART B OUTPT Member Number: NA Policy Number: NA Group Number: NA Health Plan Information #: 2 [facility]: [facility] Member Number: NA Policy Number: NA Group Number: NA
--- OUTSIDE RECORDS SUMMARY | 2024-06-09 06:14 | XMS_ITS | Clinical Summary ---
Author Organization [facility] Address [address] [place] [address] Care Team Providers Care Credit Collections Rep Name Role Phone Bob Benitez MD Primary Care Provider Allergies Active Allergy Reactions Criticality Noted Date Comments Adhesives/Tape Dermatitis 03/02/2018 Lisinopril Cough Low 03/02/2018 Dabigatran Other (See Comments) 03/02/2018 esophagus ulcer Medications Medication Sig Dispensed Refills Start Date End Date Status losartan (COZAAR) 25 MG tablet Take 25 mg by mouth daily. Active celeCOXIB (CeleBREX) 200 MG capsule Take 200 mg by mouth 2 (two) times a day. Active fentaNYL (DURAGESIC) 50 mcg/hr patch Place 1 patch on the skin every third day (72 hrs). Active metoPROLOL TARTRATE (LOPRESSOR) 25 MG tablet Take 25 mg by mouth 2 (two) times a day. Active rivaroxaban (XARELTO) 20 MG tablet Take 20 mg by mouth every evening with dinner. Take with meals. Active fenofibrate micronized (LOFIBRA) 200 MG capsule Take 200 mg by mouth daily. Active fexofenadine (RADHA) 180 MG tablet Take 180 mg by mouth daily. Administer with water only; do not administer with fruit juices. Active PANTOprazole (PROTONIX) 40 MG EC tablet Take 40 mg by mouth 2 (two) times a day. Active baclofen (LIORESAL) 20 MG tablet Take 20 mg by mouth 4 (four) times a day. Active citalopram (CeleXA) 20 MG tablet Take 20 mg by mouth 2 (two) times a day. Active clonazePAM (KlonoPIN) 1 MG tablet Take 1 mg by mouth 2 times daily (every 12 hours) as needed. Active oxyCODONE (ROXICODONE) 5 MG immediate release tablet Take 5 mg by mouth every 4 (four) hours as needed for severe pain. Active desmopressin (DDAVP) 0.2 MG tabletIndications:ta ke one to three tab qhs Take 0.2 mg by mouth daily. Active Active Problems Problem Noted Date Diagnosed Date History of stroke 03/02/2018 Paroxysmal A-fib 03/02/2018 Family History Medical History Relation Name Comments Aortic aneurysm Father Heart disease Mother Relation Name Status Comments Father Mother Social History Tobacco Use Types Packs/Day Years [...] on file Sexual Orientation Not on file Last Filed Vital Signs Vital Sign Reading Time Taken Comments Blood Pressure 120/74 03/02/2018 8:52 AM EDT Pulse 80 03/02/2018 8:52 AM EDT Temperature - - Respiratory Rate 16 03/02/2018 8:52 AM EDT Oxygen Saturation - - Inhaled Oxygen Concentration - - Weight 131 kg (288 lb) 03/02/2018 8:52 AM EDT Height 182.9 cm (6') 03/02/2018 8:52 AM EDT Body Mass Index 39.06 03/02/2018 8:52 AM EDT Plan of Treatment Health Maintenance Due Date Last Done Comments Hepatitis C Virus Screening 1974 HIV Screening 1987 DTaP/Tdap/Td Vaccines (1 - Tdap) 1993 Hepatitis B Vaccines (1 of 3 - 19+ 3-dose series) 1993 Colonoscopy 2019 Influenza Vaccine 12/02/2023 01/14/2021, 01/18/2020, 02/01/2019 COVID-19 Vaccine (4 - 2023-2 5 season) 2024 02/25/2021, 07/30/2020, 07/02/2020 Pneumococcal Vaccine: Pediatric (0-5 Years) and At-Risk Patients (6 to 49 Years) Aged Out No longer eligible b ased on patient's age to complete this topic Care Teams Credit Collections Rep Relationship Specialty Start Date End Date Bob Benitez MD [address] [facility] - Attn: [facility] [place], [place] [id number] PCP - General 01/20/18
--- OUTSIDE RECORDS SUMMARY | 2024-06-09 06:14 | XMS_ITS | Encounter Summary ---
Author Organization [facility] Address [address] [place] [address] Care Team Providers Care Manager Grant Name Role Phone Bob Benitez MD Primary Care Provider [phone] Encounter Details Date Type Department Care Team (Late st Contact Info) Description 03/04/2018 Scanned Document [facility] [address] [place] [phone] Beth Ponce MD Needs Valid Address Social [...] filedocumented in this encounter Care Teams Manager Grant Relationship Specialty Start Date End Date Bob Benietz MD [address] [place] [address] - Attn: [facility] [place] [address] PCP - General 01/20/18 documented as of this encounter
--- NOTE | 2024-06-09 07:25 | HO.ANESPROP2 ---
Documented by User: Jeanne Monroy NP 06/08/24 12:17 HPI - Anesthesia Eval Consult details Narrative: 49yo M for Right Knee Arthroscopy, partial medial meniscectomy DNR Intrathecal baclofen pump in situ Follows [facility] Cardiology for: 1.? CVA, left-sided hemiparesis (wheel chair bound) 2.? Atrial fibrillation: rate controlled on beta-blockade and?anticoagulation with Eliquis 3.??Newly reduced EF 45 to 50% 4. ?Normal cath in August 2021 (false + Nuclear study). Suspect diastolic HF 5. ?EUGENE on CPAP machine and?compliant Last office visit 05/2024, stable except LE swelling with negative doppler for DVT r/o Follows [facility] pulmo for: 1.? 48-year-old male with?obstructive sleep apnea,?central sleep apnea,?treatment emergent central sleep apnea,?Alex-Hargrove respirations.? There is a significant leak?related to the patient's frederick (not willing to shave)?and mouth breathing. Continue with?iVAPS?with settings of EPAP 10,?min PS 4,?max PS 16,?TI max 2.0, TI min 0.3,?trigger medium, cycle medium. As discussed above,?we will try?the patient on?a ResMed AirFit?F40?large?for nasal mask.? Last office visit 12/2023 [facility] Active Problems Active Problems: All Active Problems Major depression, recurrent, full remission (Acute) Chronic pain of right wrist (Acute) History of cerebral embolism (Acute) Arthritis of right knee (Acute) H/O arthroscopy of right knee (Acute) Central pain syndrome (Acute) Tendonitis of elbow, right (Acute) Myofascial low back pain (Acute) Tear of medial meniscus of right knee (Acute) Low back pain (Acute) Right knee pain (Acute) Chronic post-traumatic stress disorder (PTSD) (Acute) Major depression, recurrent, chronic (Acute) Past Medical History Medical History (Updated 06/07/24 @ 14:25 by Beverley Bolton RN) Wears hearing aid in both ears Presence of intrathecal baclofen pump Elevated cholesterol CAD (coronary artery disease) Cerebral embolism Alcohol dependence in remission Cardiomyopathy DVT (deep venous thrombosis) Muscle spasticity Central pain syndrome HTN (hypertension) Atrial fibrillation Sleep apnea Chronic post-traumatic stress disorder (PTSD) Major depression, recurrent, chronic CVA (cerebral vascular accident) Family History Family history of problems with anesthesia: No Surgical History Surgical History Hx of cardiac catheterization H/O colonoscopy History of carpal tunnel release Hx of nasal septoplasty History of back surgery History of Problems with Anesthesia: No Social History Social History (Updated 06/07/24 @ 11:07 by Beverley Bolton RN) Household Members: None Housing: Apartment Are you a primary career placement services counselor to a significant other at home: No Do you presently have visiting nurse or other home services: No Patient Tobacco Use Status: Former Tobacco user Tobacco use type: Cigarette Smoked in Last 30 Days: No Use of substances other than those prescribed or required for medical reasons: Yes Substance Use Type: Marijuana Substance Use Frequency: Occasionally Have you been hit, kicked, punched, or otherwise hurt by someone within the past year? If so, by whom?: No Are you DNR?: Yes Advance Directives: Yes Advance Directives Information Provided: No Advance Directives on File: Yes (MOLST on file) Advance Directives Date on File: 07/29/22 Recently lost weight without trying: No Nutrition Risks: No Nutritional Risk Poor oral hygiene: No Current occupational status: disabled Current occupation: rt hand dominant Meds Allergies Allergy/AdvReac Type Severity Reaction Status Date / Time dabigatran etexilate Allergy Intermediate Cough, Verified 06/09/24 06:45 throat ulcer lisinopril Allergy Intermediate Cough Verified 06/09/24 06:45 Active Medications: Current Medications Cefazolin Sodium/Dextrose (Ancef) 2 gm in 50 mls @ 100 mls/hr IV PREOP ONE Stop: 06/09/24 06:14 Home Medications ?Medication ?Instructions ?Recorded ?Confirmed ?Last Taken ?Type amlodipine 5 mg tablet 5 mg PO DAILY 03/03/22 06/09/24 01/22/23 05:00 History pantoprazole 40 mg tablet,delayed 40 mg PO BID 03/03/22 06/09/24 06/09/24 05:00 History release rosuvastatin 40 mg tablet 40 mg PO DAILY 03/03/22 06/09/24 Unknown History tadalafil 5 mg tablet 5 mg PO DAILY 03/03/22 06/09/24 Unknown History apixaban 5 mg tablet (Eliquis) 5 mg PO BID 01/20/23 06/09/24 06/05/24 History metoprolol succinate 200 mg 200 mg PO DAILY 01/20/23 06/09/24 06/09/24 05:00 History tablet,extended release 24 hr finasteride 5 mg tablet 5 mg PO DAILY 11/29/23 06/09/24 Unknown History alfuzosin 10 mg tablet,extended 10 mg PO DAILY 04/17/24 06/09/24 06/09/24 05:00 History release 24 hr furosemide 40 mg tablet 40 mg PO DAILY 04/17/24 06/09/24 Unknown History galcanezumab-gnlm 120 mg/mL mg subcut 04/17/24 04/17/24 Unknown History subcutaneous pen injector (Emgality Pen) morphine 30 mg tablet,extended 30 mg PO BID 04/17/24 06/09/24 Unknown History release baclofen 06/07/24 06/07/24 Unknown History clonazepam 0.25 mg disintegrating 0.25 mg PO DAILY PRN Anxiety 06/07/24 06/09/24 Unknown History tablet fexofenadine 180 mg tablet 180 mg PO DAILY 06/07/24 06/09/24 06/09/24 05:00 History simvastatin 10 mg tablet (Zocor) 10 mg PO DAILY 06/07/24 06/09/24 Unknown History Exam Height,Weight and Vital Signs: Height 6 ft Weight 121.563 kg Pertinent Lab Results Pertinent Lab Results: Lab ResultsCardiology Labs WBC: 5.8 x10E3/uL (07/21/23) RBC: 4.3 (07/21/23) Hgb: 13.4 Gm/dL (07/21/23) Hct: 39.9 % (07/21/23) MCV: 93 fL (07/21/23) MCH: 31.2 pg (07/21/23) MCHC: 33.6 Gm/dL (07/21/23) Platelet Count: 286 x10E3/uL (07/21/23) Abs. Neut: 4 x10E3/uL (07/21/23) Abs. Lymph: 1.1 x10E3/uL (07/21/23) Abs. [place]: 0.5 x10E3/uL (07/21/23) Abs. Eo: 0.2 x10E3/uL (07/21/23) Abs. Baso: 0 x10E3/uL (07/21/23) Neut %: 67 % (07/21/23) [place] %: 9 % (07/21/23) Eos %: 3 % (07/21/23) Baso %: 1 % (07/21/23) Imm Gran: 1 % (07/21/23) Abs. Imm Gran: 0 x10E3/uL (07/21/23) Sodium: 143 mmol/L (07/21/23) Potassium: 4 mmol/L (07/21/23) Chloride: 101 mmol/L (07/21/23) Bicarbonate Level: 25 mmol/L (07/21/23) Glucose Level: 97 mg/dL (07/21/23) Hemoglobin A1C (Monitoring):?5.7 %?High (07/21/23) BUN: 11 mg/dL (07/21/23) Creatinine-Blood: 0.86 mg/dL (07/21/23) Calcium: 9.3 mg/dL (07/21/23) Protein, Total: 7.2 Gm/dL (07/21/23) Albumin: 5 Gm/dL (07/21/23) Alkaline Phosphatase: 83 IU/L (07/21/23) AST (SGOT): 26 IU/L (07/21/23) ALT (SGPT): 40 IU/L (07/21/23) Bilirubin, Total: 1.1 mg/dL (07/21/23) Cholesterol: 115 mg/dL (07/21/23) Triglycerides: 128 mg/dL (07/21/23) HDL Cholesterol: 43 mg/dL (07/21/23) Non HDL Cholesterol: 72 mg/dL (07/21/23) LDL Chol Calc ([facility]): 49 mg/dL (07/21/23) Narrative Narrative: ECGECG 12-Lead ? 14:22:29 Please click on pdf link to open report ? Signed By: Lisa SHARMA, Nicola ? ECG 12-Lead ? 14:22:29 Ventricular Rate: 87 BPM Atrial Rate: 97 BPM QRS Duration: 84 ms Q-T Interval: 398 ms QTC Calculation(Bazett): 478 ms R [place]: -8 degrees T [place]: 9 degrees Atrial fibrillation with premature ventricular or aberrantly conducted complexes Nonspecific ST abnormality Abnormal ECG When compared with ECG of 17-FEB-2023 13:20, Questionable change in QRS axis Confirmed by NICOLA GONZALEZ MD ([id number]) on 03/07/2024 9:11:58 AM [place]: NICOLA GONZALEZ MD ? Signed By: Nicola Gonzalez MD Stress Test NM Myocard Perf SPECT Multi ? 08:40:36 Summary 1. This is an abnormal myoperfusion scan. 2. There is a partially reversible defect in the areas mentioned above. 3. There are segmental wall motion abnormalities as described with EF of 52%. 4. This is suggestive of a severe lesion involving the LAD territory. Signatures _ _ ? Signed By: Nicola Gonzalez MD EchoEchocardiogram - Complete ? 15:50:24 Summary The left atrium is mildly dilated. There is mild mitral regurgitation. There is mild dilation of the ascending aorta measuring 38 mm in the tubular section. The left ventricular size is normal. Left ventricular wall thickness is normal. The LV systolic function is mildly reduced . The left ventricular ejection fraction is 45-50 %. There is hypokinesis of the basal and mid inferoseptal and basal to mid inferior wall. Unable to assess diastolic function due to atrial fibrillation. Comparison No prior study available for comparison. Signature ? Signed By: Lisa SHARMA, Nicola Assessment and Plan Assessment Anesthesia Assessment: Chart Reviewed Final Anesthetic Review Family History of Problems with Anesthesia: No History of Problems with Anesthesia: No Documented by User: Tati Samaniego DO 06/09/24 07:49 [facility] Past Medical History Medical History (Updated 06/07/24 @ 14:25 by Beverley Bolton, RN) Wears hearing aid in both ears Presence of intrathecal baclofen pump Elevated cholesterol CAD (coronary artery disease) Cerebral embolism Alcohol dependence in remission Cardiomyopathy DVT (deep venous thrombosis) Muscle spasticity Central pain syndrome HTN (hypertension) Atrial fibrillation Sleep apnea Chronic post-traumatic stress disorder (PTSD) Major depression, recurrent, chronic CVA (cerebral vascular accident) Family History Family history of problems with anesthesia: No Surgical History Surgical History Hx of cardiac catheterization H/O colonoscopy History of carpal tunnel release Hx of nasal septoplasty History of back surgery History of Problems with Anesthesia: No Social History Social History (Updated 06/07/24 @ 11:07 by Beverley Bolton, RN) Household Members: None Housing: Apartment Are you a primary career placement services counselor to a significant other at home: No Do you presently have visiting nurse or other home services: No Patient Tobacco Use Status: Former Tobacco user Tobacco use type: Cigarette Smoked in Last 30 Days: No Use of substances other than those prescribed or required for medical reasons: Yes Substance Use Type: Marijuana Substance Use Frequency: Occasionally Have you been hit, kicked, punched, or otherwise hurt by someone within the past year? If so, by whom?: No Are you DNR?: Yes Advance Directives: Yes Advance Directives Information Provided: No Advance Directives on File: Yes (MOLST on file) Advance Directives Date on File: 07/29/22 Recently lost weight without trying: No Nutrition Risks: No Nutritional Risk Poor oral hygiene: No Current occupational status: disabled Current occupation: rt hand dominant Meds Allergies Allergy/AdvReac Type Severity Reaction Status Date / Time dabigatran etexilate Allergy Intermediate Cough, Verified 06/09/24 06:45 throat ulcer lisinopril Allergy Intermediate Cough Verified 06/09/24 06:45 Home Medications ?Medication ?Instructions ?Recorded ?Confirmed ?Last Taken ?Type amlodipine 5 mg tablet 5 mg PO DAILY 03/03/22 06/09/24 01/22/23 05:00 History pantoprazole 40 mg tablet,delayed 40 mg PO BID 03/03/22 06/09/24 06/09/24 05:00 History release rosuvastatin 40 mg tablet 40 mg PO DAILY 03/03/22 06/09/24 Unknown History tadalafil 5 mg tablet 5 mg PO DAILY 03/03/22 06/09/24 Unknown History apixaban 5 mg tablet (Eliquis) 5 mg PO BID 01/20/23 06/09/24 06/05/24 History metoprolol succinate 200 mg 200 mg PO DAILY 01/20/23 06/09/24 06/09/24 05:00 History tablet,extended release 24 hr finasteride 5 mg tablet 5 mg PO DAILY 11/29/23 06/09/24 Unknown History alfuzosin 10 mg tablet,extended 10 mg PO DAILY 04/17/24 06/09/24 06/09/24 05:00 History release 24 hr furosemide 40 mg tablet 40 mg PO DAILY 04/17/24 06/09/24 Unknown History galcanezumab-gnlm 120 mg/mL mg subcut 04/17/24 04/17/24 Unknown History subcutaneous pen injector (Emgality Pen) morphine 30 mg tablet,extended 30 mg PO BID 04/17/24 06/09/24 Unknown History release baclofen 06/07/24 06/07/24 Unknown History clonazepam 0.25 mg disintegrating 0.25 mg PO DAILY PRN Anxiety 06/07/24 06/09/24 Unknown History tablet fexofenadine 180 mg tablet 180 mg PO DAILY 06/07/24 06/09/24 06/09/24 05:00 History simvastatin 10 mg tablet (Zocor) 10 mg PO DAILY 06/07/24 06/09/24 Unknown History Exam Exam Date and Time: 06/09/24 07 Height,Weight and Vital Signs: Height 6 ft Weight 121.563 kg Vital Signs Temperature 98.8 F 06/09/24 06:41 Pulse Rate 87 06/09/24 06:41 Respiratory Rate 18 06/09/24 06:41 Blood Pressure 122/72 06/09/24 06:41 Pulse Oximetry 94 06/09/24 06:41 Oxygen Delivery Method Room Air 06/09/24 06:41 Temperature 98.8 F 06/09/24 06:41 Pulse Rate 87 06/09/24 06:41 Respiratory Rate 18 06/09/24 06:41 Blood Pressure 122/72 06/09/24 06:41 Pulse Oximetry 94 06/09/24 06:41 Oxygen Delivery Method Room Air 06/09/24 06:41 Airway Mallampati Class: III TM Dist: >3cm Neck ROM: Full Loose/Missing/Broken Teeth: No (patient denies any loose or broken teeth) Heart: S1S2 Lungs: CTAB Assessment and Plan Assessment Anesthesia Assessment: Anesthesia Plan Discussed and Chart Reviewed Final Anesthetic Review Family History of Problems with Anesthesia: No History of Problems with Anesthesia: No NPO: Yes ASA Class: III Final Preanesthetic Review: No Changes in Pt Med Stat, Meds/Allgs Chart Reviewed, Consent Obtained/Reviewed, Anes Risks/Benef Reviewed and DNR Form (If Appl.) (limited resuscitation including intubation and vasoactive medications) Patient Risk: Intermediate Procedure Risk: Low Anesthetic Plan Anesthetic Plan: GA and Agree w/ Assess. and Plan Disposition: Standard PACU
[2024-06-09] MEDS: Lactated Ringers 1,000 ML 100 ML IVCONT (07:31)
--- NOTE | 2024-06-09 08:45 | PM.OP ---
Brief Operative Note Date of Service: 06/09/24 Pre-op diagnosis: Right knee medial meniscus tear, right knee degenerative joint disease Post-op diagnosis: same Procedure: Right knee diagnostic arthroscopy with right knee arthroscopic partial medial meniscectomy, right knee arthroscopic chondroplasty of the undersurface of the patella as well as the medial femoral condyle Implants: none Surgeon: Ace Schuler MD Anesthesia: GLMA Was an Fruit Stuffer used for this Procedure?: No Estimated blood loss (mL): 10 Pathology: none sent Condition: stable Disposition: PACU
--- NOTE | 2024-06-09 08:46 | W.PM.OPN ---
Operative Note Operative Note Date of Service: 06/09/24 Narrative: After the patient was identified as Lenin Hardin and his right knee was initialed by myself they were brought to the operating room where general anesthesia was induced by the anesthesiologist in routine fashion. The patient was given 2 g of IV Ancef for infection prophylaxis. A formal time-out was completed. The patient's right lower extremity was prepped and draped in sterile fashion. Marcaine with epinephrine was injected into the planned incision sites as well as their right knee joint. A # 11 scalpel blade was used to make an anterolateral portal 1 cm proximal to the joint line and 1 cm lateral to the patellar tendon. Blunt trocar technique was used into the suprapatellar pouch with the knee in extension. Diagnostic arthroscopy showed multiple bands of thickened plica which would be excised at the end of the procedure. There were no loose bodies or abnormalities found in either the medial or lateral gutters. There were diffuse grade 2 degenerative changes of the undersurface of the patella as well as grade 1 degenerative changes of the trochlear groove. The patient's knee was flexed to 45 degrees and a valgus force was placed upon it. The medial compartment was entered. An anteromedial portal was made 1 cm proximal to the joint line and 1 cm medial to the patellar tendon. Probing of the medial meniscus showed a radial tear of the anterior horn. A partial medial meniscectomy was performed using the arthroscopic shaver. Following the partial meniscectomy the remainder of the meniscus tissue was stable. There were diffuse grade 2 degenerative changes of the medial femoral condyle as well as diffuse grade 1 degenerative changes of the medial tibial plateau. The articular surface of the medial femoral condyle was made smooth using the arthroscopic shaver. The articular surface of the medial tibial plateau was already smooth so no chondroplasty was indicated. The patient's knee was then placed into a neutral position. There was no injury to the anterior cruciate ligament. The patient's knee was then placed into the figure of 4 position and the lateral compartment was entered. There were minimal degenerative changes of the lateral femoral condyle and lateral tibial plateau. There was no evidence of lateral meniscus tearing. The patient's knee was once again brought into extension and the suprapatellar pouch was entered. The arthroscopic shaver and the ArthroCare Wand were used to excise the thickened bands of plica. The undersurface of the patella was then made smooth using the arthroscopic shaver. The articular surface of the trochlear groove was already smooth so no chondroplasty was indicated. The knee joint was irrigated and then drained. All arthroscopic instruments were removed. The 2 portals were closed with 3-0 nylon interrupted suture. The knee joint was injected with Marcaine. Dry sterile dressing and Jayden bandages were placed over the patient's knee. The patient was awoken and extubated in the operating room. They were transferred to the recovery room in stable condition.
[2024-06-09] MEDS: Acetaminophen 1,000 MG/100 ML PIGGYBACK 400 MG IV (08:47)
[2024-06-09] MEDS: fentaNYL citrate/PF 100 MCG/2 ML VIAL 50 MCG IVPUSH ×2 (09:03→09:08)
[2024-06-09] MEDS: oxyCODONE HCl Immed Release 5 MG TABLET PO (09:03)
[2024-06-09] MEDS: cefTRIAXone sodium 1 GM VIAL IVPUSH (09:29)
[2024-06-09] MEDS: HYDROmorphone HCl 0.5 MG/0.5 ML SYRINGE IVPUSH (10:09)
== END 2024-06-09 10:42 | disposition home or self-care (01) ==
PROVIDERS: PCP Student in an Organized Health Care Education/Training Program; Visit Provider Orthopaedic Surgery
PROC: (CPT 29870; principal; 2024-06-09 07:30)
DX: S83.241A Other tear of medial meniscus, current injury, right knee, initial encounter (principal); M17.11 Unilateral primary osteoarthritis, right knee; M25.561 Pain in right knee; M23.51 Chronic instability of knee, right knee; M67.51 Plica syndrome, right knee; X50.1XXA Overexertion from prolonged static or awkward postures, initial encounter; Y93.89 Activity, other specified; Y92.9 Unspecified place or not applicable; Y99.9 Unspecified external cause status; Z66 Do not resuscitate; G89.0 Central pain syndrome; M62.838 Other muscle spasm; I10 Essential (primary) hypertension; I48.91 Unspecified atrial fibrillation; I25.10 Atherosclerotic heart disease of native coronary artery without angina pectoris; E78.00 Pure hypercholesterolemia, unspecified; F33.8 Other recurrent depressive disorders; F10.21 Alcohol dependence, in remission; F43.10 Post-traumatic stress disorder, unspecified; Z86.73 Personal history of transient ischemic attack (TIA), and cerebral infarction without residual deficits; G47.33 Obstructive sleep apnea (adult) (pediatric); Z79.01 Long term (current) use of anticoagulants; Z79.899 Other long term (current) drug therapy; Z99.89 Dependence on other enabling machines and devices; Z88.8 Allergy status to other drugs, medicaments and biological substances; Z98.890 Other specified postprocedural states; Z87.891 Personal history of nicotine dependence
CPT/HCPCS: 29881; J0131; J0171; J0690; J0696; J1100; J1171; J2003; J2250; J2405; J2704; J2795; J3010

== ENCOUNTER → 2024-06-09 06:11 | Outpatient (BNV) | payer MEDICARE, MEDICAID, SELFPAY | PROVIDERS: PCP Student in an Organized Health Care Education/Training Program; Visit Provider Orthopaedic Surgery | DX: S83.241A Other tear of medial meniscus, current injury, right knee, initial encounter (principal) | CPT/HCPCS: 29881 ==

== ENCOUNTER 2024-06-22 14:58 | Outpatient (AMB) | payer MEDICARE, MEDICAID, SELFPAY ==
--- NOTE | 2024-06-22 15:01 | A.OFFVIS_ITS ---
Intake Visit Reasons: PO RT Knee 06/09/24 Intake Note: Lenin is a 49 year old male who presents today for a post op appointment s/p right Knee 06/09/24 Patient states he is having some soreness at the moment. Allergies dabigatran etexilate Allergy (Intermediate, Verified 06/22/24 15:05) Cough, throat ulcer lisinopril Allergy (Intermediate, Verified 06/22/24 15:05) Cough HPI HPI PO RT Knee 06/09/24 DR: Details: Mr. Hardin is a 49-year-old male who presents to the office today status post right knee diagnostic arthroscopy with right knee arthroscopic partial medial meniscectomy, right knee arthroscopic chondroplasty of the undersurface of the patella as well as the medial femoral condyle performed by Dr. Schuler on 06/09/2024. Of note, the patient has a past medical history significant for a brain aneurysm that left him with left-sided hemiplegia he is wheelchair bound but does have it on the right lower extremity. Additionally, the patient does use the right lower extremity to help propel himself forward in his wheelchair. [facility] Medical History (Updated 06/07/24 @ 14:25 by Beverley Bolton RN) Wears hearing aid in both ears Presence of intrathecal baclofen pump Elevated cholesterol CAD (coronary artery disease) Cerebral embolism Alcohol dependence in remission Cardiomyopathy DVT (deep venous thrombosis) Muscle spasticity Central pain syndrome HTN (hypertension) Atrial fibrillation Sleep apnea Chronic post-traumatic stress disorder (PTSD) Major depression, recurrent, chronic CVA (cerebral vascular accident) Surgical History Hx of cardiac catheterization H/O colonoscopy History of carpal tunnel release Hx of nasal septoplasty History of back surgery Social History Household Members: None Housing: Apartment Are you a primary foster care therapist to a significant other at home: No Do you presently have visiting nurse or other home services: No 75 years or older and lives alone: No Patient Tobacco Use Status: Former Tobacco user Tobacco use type: Cigarette Substance Use Type: Marijuana Advance Directives Date on File: 07/29/22 Current occupational status: disabled Current occupation: rt hand dominant Review of Systems Const All systems reviewed & are unremarkable except as noted in HPI and below Physical Exam Const General: cooperative, healthy appearing and no acute distress Resp Effort & Inspection: normal respiratory effort and able to speak in complete sentences Cardio Rate: regular rate Peripheral pulses: Peripheral pulses 2+ throughout Skin Lesions: no lesions Rashes: no rashes Extrem Other: Right knee incision sites are clean dry and intact. Sutures are intact. No surrounding erythema or drainage. No signs of infection. Range of motion is 0- 110. NVI. Assessment & Plan Assessment & Plan (1) Arthritis of right knee: Code(s): M17.11 - Unilateral primary osteoarthritis, right knee Category: Medical Plan Mr. Hardin is a 49-year-old male who presents to the office today status post right knee diagnostic arthroscopy with right knee arthroscopic partial medial meniscectomy, right knee arthroscopic chondroplasty of the undersurface of the patella as well as the medial femoral condyle performed by Dr. Schuler on 06/09/2024. Of note, the patient has a past medical history significant for a brain aneurysm that left him with left-sided hemiplegia he is wheelchair bound but does have it on the right lower extremity. Additionally, the patient does use the right lower extremity to help propel himself forward in his wheelchair. Patient would like to discuss if he is a candidate for right total knee arthroplasty as he is becoming less mobile with a right lower extremity due to pain. He does have a variety of social factors that would make this recovery difficult for him. He states that he would not be interested in attempting a rehab facility as he has a service animal at home that he cares for. Therefore, I do not feel as though the patient is a good surgical candidate at this time but I will discuss case with the surgeon. On the office today, sutures are removed and Steri-Strips were applied. The patient may resume back to normal activities as tolerated and follow up with Orthopedics p.r.n., sooner if needed. Coding Level of Care Code Global (93111) Diagnoses Arthritis of right knee M17.11
--- OUTSIDE RECORDS SUMMARY | 2024-06-22 16:04 | XMS_ITS | Continuity of Care Document ---
Author Organization [facility] Adult Address [address] [place] [address]- Care Team Providers Care Director Of First Impressions Name Role Phone Muna Cortes Primary Care Lexi mcneal Encounter [facility] ACCT R [id number] Date(s): 05/01/24 - 05/31/[address] [address]- Encounter Type: Triage Allergies, Adverse Reactions, Alerts [...] 01/18/20 Kalia rded tetanus/diphtheria/pertussis, acel(Tdap) 08/13/22 Given [id number] bivalent booster vax 02/18/22 Recorded Influenza Virus Vaccine (oldterm) 01/14/21 Recorde d Influenza Virus Vaccine (oldterm) 02/01/19 Recorde d zoster vaccine, inactivated 02/01/19 Recorded 1Result Comment: Administered at [facility] 24 Hour Allergy = 180 mg, By Mouth, Daily, 0 Refills, Maintenance, 08/20/21 10:36:00 AM EDT, Partial fill upon patient request if the prescription is for a schedule II opioid drug. Start Date: 08/20/21 Status: Ordered Repeat number: 1 amLODIPine 5 mg oral tablet 1 tablet, By Mouth, Daily, # 90 tablet, 1 Refills, Maintenance, 05/11/24 10:47:00 AM EST, [facility] #[id number], 183, cm, 05/05/24 13:30:00 EST, Height, 69.2, [...] Refills, Maintenance, 07/27/22 3:13:00 PM EDT, Tablet, [facility] #[id number], Partial fill upon patient request if the [...] Refills, Maintenance, 11/29/23 9:25:00 AM EDT, Tablet, [facility] #[id number], Partial fill upon patientrequest if the prescription [...] 1 Refills, Maintenance, 03/08/24 3:50:00 PM EST, [facility] #[id number], 183, cm, 03/06/24 14:17:00 EST, Height, 69.2, kg, 06/16/23 19:29:00 EST, Dry Weight Start Date: 03/08/24 Status: Ordered Quantity: 90.0 Unit: tablet Repeat number: 2 Fax to [facility] Fax to [facility], See Instructions, # 1 each, Refills 11, [...] Maintenance, DME: [facility]. Diagnosis: Obstructive sleep apnea, G 47.33 Device: [...] 2:37:00 PM EST, Route to Pharmacy Electronically, [facility] #[id number], Partial fill upon patientrequest if the prescription [...] Maintenance, 10/01/23 10:58:00 AM EDT, ER Tablet, [facility] #[id number], Partial fill upon patient request if the [...] 5:14:00 PM EDT, Route to Pharmacy Electronically, [facility] #[id number], Partial fill upon patient request if the [...] CVA (cerebrovascular accident) Confirmed Active CAD in [place] artery Confirmed Active Coronary artery disease Confirmed [...] Care Team Personnel Name: Beverley Akers Position: [facility] Onco RN Member Role: Primary Care Nurse Name: Emery Acosta RN Position: [facility] ED RN W/OE and Tasks Member Role: Primary Care Nurse Name: Moni Branham [place] Position: [facility] [place] Office Staff Member Role: Lifetime Consulting Physician Name: Bianca Lopez RN Position: [facility] RN Member Role: Primary Care Nurse Name: Nolberto York NP Position: [facility] PCO Associate Professional Member Role: Primary Care Nurse Address: [address] [place] [address] [address]rd [place] [address]- Telecom: Name: Muna Cortes Position: [facility] PCO Associate Professional Member Role: PCP Address: [address] [place] [address]. [address] [place] [address]- Telecom: Name: Sofya Gallegos RN Position: [facility] RN Member Role: Primary Care Nurse Care Team Related Persons Name: JESSICA AVILES Name: NIK SORENSEN Name: JESSICA FELDMAN Insurance Providers Guarantor name: INEZ AVILES Health Plan Information #: 1 Payer: MEDICARE PART B OUTPT Member Number: NA Policy Number: NA Group Number: NA Health Plan Information #: 2 Payer: [facility] Member Number: NA Policy Number: NA Group Number: NA
--- OUTSIDE RECORDS SUMMARY | 2024-06-22 16:05 | XMS_ITS | Encounter Summary ---
Author Organization [facility] Address [address] [place] [address] Care Team Providers Care Grades 1 Through 6 Teacher Name Role Phone Bob Benitez MD Primary Care Provider Encounter Details Date Type Department Care Team (Late st Contact Info) Description 07/29/2018 Scanned Document [facility] Neuroscience [facility] [address] [place] [phone] Beth Ponce MD Needs Valid Address Social [...] on filedocumented in this encounter Care Teams Grades 1 Through 6 Teacher Relationship Specialty Start Date End Date Bob Benitez MD [address] [place] [address] - Attn: [facility] [place] [address] PCP - General 01/20/18 documented as of this encounter
--- OUTSIDE RECORDS SUMMARY | 2024-06-22 16:05 | XMS_ITS | Data Portability ---
Author Organization [place] [facility] Address [address] [place] [id number] Care Team Providers Care Wire Stockkeeper Name Role Phone CATRACHITO VILLANUEVA Primary Care Provider [phone] Assessment Encounter Date Assessment Date Assessment LastModified [...] By Organization Details Last Modified Time 04/07/2019 [id number] Thank you for yo ur visit with [facility] today. You were evaluated for a head injury today. At this time, you do not appear to have evidence of a serious injury such as bleeding. However, your condition can plant changer the next 24-48 hours. We recommend [...] condition between 8am-10pm, please call [facility] at [phone] to help navigate your care. pedro luis Not available 04/07/2019 14:22:21 Reason for Referral None Reported. Problems Name Problem SNOMED Code Status Onset Date Resolution Date Notes Provider Name and Address Organization Details Recorded Time Hypertensive disorder 80704907 Active 2018 SOHAN GAINES NP [address], [place], [address], [place] [facility] 9 13:59:42 Problem Notes None recorded. Medical Equipment None Reported. Allergies Allergen ID Allergen Name Allergen Category Reaction Reaction Severity Criticality Documentation Date Start Date Code Code System Note Provider Name and Address Organization Details Recorded Time 85469 lisinopri l medicatio n Not available Not available Not available 04/07/2019 71305 RxNorm SOHAN GAINES NP [address] [place], [address], [place] [facility] 9 13:54:25 83638 Pradaxa medicatio n Not available Not available Not available 04/07/2019 06905 46 RxNorm SOHAN GAINES NP [address], [place], [address], [place] [facility] 9 [...] Tobacco Smoking Status Former Smoker SOHAN GAINES, AWNING FINISHER [address] [place], [address], [place] [facility] 04/07/2019 14:01:15 Do You [...] Coronary Artery Disease N High Cholesterol Y Pulmonary Embolism N Cancer N Hypertension Y Stroke Y Asthma N COPD N Depression Y Kidney Disease N Past Encounters Encounter ID Performer Location Encounter Start Date Encounter Closed Date Diagnosis/Indication Diagnosis SNOMED-CT Code Diagnosis ICD10 Code Diagnosis Note [id number] SOHAN GAINES NP [facility] [address] [place] [address] 04/07/2019 13:52:52 04/10/2019 13:40:27 Jaw pain 110825296 R68.84 Rib pain 731224469 R07.8 1 Fall on sa me level from slipping, tripping or stumbling 376540112 W01.0XXA Contusion of rib 2786113 06 S20.222A Health Concerns Section Related Observation LastModified by Organization Detai ls LastModified Time None Recorded Concern Status LastModified by Organization Details LastModified Time None Recorded Advance Directives Directive Y: Payers Encounter Date Sequence Insurance Name Policy Number Policy Munguia Covered Member ID Munguia Member ID Guarantor Name 04/07/2019 1 [place] [employer] Lenin Hardin [id number] 04/07/2019 2 [place] [facility] Lenin Hardin [id number] Notes Date Note Type Note Provider Name [...] vomiting. SOHAN GAINES NP [address], [place], [address], [place] [facility] 04/07/2019 15:23:13
--- OUTSIDE RECORDS SUMMARY | 2024-06-22 16:05 | XMS_ITS | Continuity of Care Document ---
Author Organization [facility] Adult Address [address] [place] [address]- Care Team Providers Care Evp And Chief Operating Officer Name Role Phone Muna Cortes Primary Care Lexi mcneal [facility] [id number] Date(s): 05/11/24 - 06/10/[address] [address]- Encounter Type: Triage Allergies, Adverse Reactions, Alerts [...] 01/18/20 Kalia rded tetanus/diphtheria/pertussis, acel(Tdap) 08/13/22 Given [id number] bivalent booster vax 02/18/22 Recorded Influenza Virus Vaccine (oldterm) 01/14/21 Recorde d Influenza Virus Vaccine (oldterm) 02/01/19 Recorde d zoster vaccine, inactivated 02/01/19 Recorded 1Result Comment: Administered at [facility] 24 Hour Allergy = 180 mg, By Mouth, Daily, 0 Refills, Maintenance, 08/20/21 10:36:00 AM EDT, Partial fill upon patient request if the prescription is for a schedule II opioid drug. Start Date: 08/20/21 Status: Ordered Repeat number: 1 amLODIPine 5 mg oral tablet 1 tablet, By Mouth, Daily, # 90 tablet, 1 Refills, Maintenance, 05/11/24 10:47:00 AM EST, [facility] #[id number], 183, cm, 05/05/24 13:30:00 EST, Height, 69.2, [...] Refills, Maintenance, 07/27/22 3:13:00 PM EDT, Tablet, [facility] #[id number], Partial fill upon patient request if the [...] Refills, Maintenance, 11/29/23 9:25:00 AM EDT, Tablet, [facility] #[id number], Partial fill upon patientrequest if the prescription [...] 1 Refills, Maintenance, 03/08/24 3:50:00 PM EST, [facility] #[id number], 183, cm, 03/06/24 14:17:00 EST, Height, 69.2, kg, 06/16/23 19:29:00 EST, Dry Weight Start Date: 03/08/24 Status: Ordered Quantity: 90.0 Unit: tablet Repeat number: 2 Fax to [facility] Fax to [facility], See Instructions, # 1 each, [...] Tot. Refills 11, Maintenance, DME: [facility]. Diagnosis: Obstructive sleep apnea, G [...] 2:37:00 PM EST, Route to Pharmacy Electronically, [facility] #[id number], Partial fill upon patientrequest if the prescription [...] Maintenance, 10/01/23 10:58:00 AM EDT, ER Tablet, [facility] #[id number], Partial fill upon patient request if the [...] 5:14:00 PM EDT, Route to Pharmacy Electronically, [facility] #[id number], Partial fill upon patient request if the [...] CVA (cerebrovascular accident) Confirmed Active CAD in [place] artery Confirmed Active Coronary artery disease Confirmed [...] Care Team Personnel Name: Beverley Akers Position: [facility] Onco RN Member Role: Primary Care Nurse Name: Emery Acosta RN Position: [facility] ED RN W/OE and Tasks Member Role: Primary Care Nurse Name: Moni Branham [place] Position: [facility] [place] Office Staff Member Role: Lifetime Consulting Physician Name: Bianca Lopez RN Position: [facility] RN Member Role: Primary Care Nurse Name: Nolberto York NP Position: [facility] PCO Associate Professional Member Role: Primary Care Nurse [address] [place] [address]- Telecom: Name: Muna Cortes Position: [facility] PCO Associate Professional Member Role: PCP Address: [address] [place] [address]. [address] [place] [address]- Telecom: Name: Sofya Gallegos RN Position: S RN Member Role: Primary Care Nurse Care Team Related Persons Name: JESSICA AVILES Name: NIK SORENSEN Name: JESSICA FELDMAN Insurance Providers Guarantor name: INEZ AVILES Health Plan Information #: 1 Payer: MEDICARE PART B OUTPT Member Number: NA Policy Number: NA Group Number: NA Health Plan Information #: [address] [facility] Member Number: NA Policy Number: NA Group Number: NA
--- OUTSIDE RECORDS SUMMARY | 2024-06-22 16:05 | XMS_ITS | Encounter Summary ---
Author Organization [facility] Address [address] [place] [address] Care Team Providers Care Precision Layout Worker Name Role Phone Bob Benitez MD Primary Care Provider [phone] Encounter Details Date Type Department Care Team (Late st Contact Info) Description 03/04/2018 Scanned Document [facility] Neuroscience [facility] [address] [place] [phone] Beth Ponce MD Needs Valid Address Social [...] on filedocumented in this encounter Care Teams Precision Layout Worker Relationship Specialty Start Date End Date Bob Benitez MD [address] [place] [address] - Attn: [facility] [place] [address] PCP - General 01/20/18 documented as of this encounter
--- OUTSIDE RECORDS SUMMARY | 2024-06-22 16:05 | XMS_ITS | Referral Summary ---
Author Organization [facility] Address [address] [place] [address] Care Team Providers Care Patient Ambassador Name Role Phone Muna Quiroz Primary Care Provider [phone] Allergies Active Allergy Reactions Criticality Noted Date [...] muscle weakness 05/28/2022 Anemia 05/28/2022 CAD in [place] artery 05/28/2022 Campylobacter diarrhea 05/28/2022 Cardiomyopathy 05/28/2022 [...] Vitamin D deficiency 05/28/2022 Hypertension 04/07/2019 Immunizations Immunization Administration Dates Next Due Influenza, Injectable, Quadrivalent, [...] of Treatment Not on file Insurance MEDICARE [facility] Care Teams Patient Ambassador Relationship Specialty Start Date End Date RichieMuna [address] [place] [address] PCP - General 05/28/22
--- OUTSIDE RECORDS SUMMARY | 2024-06-22 16:05 | XMS_ITS | Continuity of Care Document ---
Author Organization [facility] Address [address] [place] [address]- Care Team Providers Care Automotive Instructor Name Role Phone Valdo CARRILLO, Muna Leong Primary Care [id number] Date(s): 06/05/24 - 06/12/24 [facility] Physical Medicine and Rehabilitation [address] [place] [address]- Attending Physician: Gregorio Rob MD Referring Physician: [...] 01/18/20 Kalia rded tetanus/diphtheria/pertussis, acel(Tdap) 08/13/22 Given [id number] bivalent booster vax 02/18/22 Recorded Influenza Virus Vaccine (oldterm) 01/14/21 Recorde d Influenza Virus Vaccine (oldterm) 02/01/19 Recorde d zoster vaccine, inactivated 02/01/19 Recorded 1Result Comment: Administered at [facility] 24 Hour Allergy = 180 mg, By Mouth, Daily, 0 Refills, Maintenance, 08/20/21 10:36:00 AM EDT, Partial fill upon patient request if the prescription is for a schedule II opioid drug. Start Date: 08/20/21 Status: Ordered Repeat number: 1 amLODIPine 5 mg oral tablet 1 tablet, By Mouth, Daily, # 90 tablet, 1 Refills, Maintenance, 05/11/24 10:47:00 AM EST, [facility] #[id number], 183, cm, 05/05/24 13:30:00 EST, Height, 69.2, [...] Refills, Maintenance, 07/27/22 3:13:00 PM EDT, Tablet, [facility] #[id number], Partial fill upon patient request if the [...] Refills, Maintenance, 11/29/23 9:25:00 AM EDT, Tablet, [facility] #[id number], Partial fill upon patientrequest if the prescription [...] 1 Refills, Maintenance, 03/08/24 3:50:00 PM EST, [facility] #[id number], 183, cm, 03/06/24 14:17:00 EST, Height, 69.2, kg, 06/16/23 19:29:00 EST, Dry Weight Start Date: 03/08/24 Status: Ordered Quantity: 90.0 Unit: tablet Repeat number: 2 Fax to [facility] Fax to [facility], See Instructions, # 1 each, Refills [...] Refills 11, Tot. Refills 11, Maintenance, DME: [facility]. Diagnosis: Obstructive sleep apnea, G 47.33 [...] 2:37:00 PM EST, Route to Pharmacy Electronically, [facility] #[id number], Partial fill upon patientrequest if the prescription [...] Maintenance, 10/01/23 10:58:00 AM EDT, ER Tablet, [facility] #[id number], Partial fill upon patient request if the [...] 5:14:00 PM EDT, Route to Pharmacy Electronically, [facility] #[id number], Partial fill upon patient request if the [...] CVA (cerebrovascular accident) Confirmed Active CAD in [place] artery Confirmed Active Coronary artery disease Confirmed [...] oldest [Reference Range]: 1 Height 183 cm (06/05/24 10:59 AM) Weight 123.6 kg (06/05/24 10:59 AM) Oxygen Saturation [94-100 %] 98 % (06/05/24 10:59 AM) Body Mass Index [18.5-24.99 kg/m2] 36.91 kg/m2 *>HHI* (06/05/24 10:59 AM) Blood Pressure [90-138/55-84 mm Hg] 115/ 73mm Hg (06/05/24 10:59 AM) Mode of Delivery (Oxygen) Room air (06/05/24 10:59 AM) Blood pressure sites Arm, right (06/05/24 10:59 AM) Social History Social History Type Response [...] Personnel Name: Beverley Akers Position: [facility] Onco RN Member Role: Primary Care Nurse Name: Emery Acosta RN Position: [facility] ED RN W/OE and Tasks Member Role: Primary Care Nurse Name: Moni Branham MA Position: [facility] BASIA Office Staff Member Role: Lifetime Consulting Physician Name: Bianca Lopez RN Position: [facility] RN Member Role: Primary Care Nurse Name: Nolberto York NP Position: [facility] PCO Associate Professional Member Role: Primary Care Nurse Address: [address] [place] [address] Telecom: Name: Muna Cortes Position: [facility] PCO Associate Professional Member Role: PCP Address: [address] [place] [address]. [address] [place] [address] Telecom: Name: Sofya Gallegos RN Position: [facility] RN Member Role: Primary Care Nurse Care Team Related Persons Name: JESSICA AVILES Name: NIK SORENSEN Name: JESSICA FELDMAN Insurance Providers Guarantor name: INEZ AVILES Health Plan Information #: 2 P[facility] Member Number: [id number] Policy Number: NA Group Number: NA Health Plan Information #: 1 Payer: MEDICARE PART B OUTPT Member Number: [id number] Policy Number: NA Group Number: NA
--- OUTSIDE RECORDS SUMMARY | 2024-06-22 16:05 | XMS_ITS | Clinical Summary ---
Author Organization [facility] Address [address] [place] [address] Care Team Providers Care Aircraft Communicator Name Role Phone Muna Quiroz Primary Care Provider [phone] Allergies Active Allergy Reactions Criticality Noted Date [...] muscle weakness 05/28/2022 Anemia 05/28/2022 CAD in [place] artery 05/28/2022 Campylobacter diarrhea 05/28/2022 Cardiomyopathy 05/28/2022 [...] - 19+ 3-dose series) 1993 COVID-19 Vaccine ( - 2023- season) 2024 02/18/2022, 07/24/2021, 02/25/2021, Additional history exists Influenza Vaccine (#1) 2024 , 02/18/2022, 02/18/2022, Additional history exists Alcohol/Substance Use Screening 05/03/2024 Depression Evaluation 05/03/2024 Social Drivers of Health Annual Screening 05/03/2024 Pneumococcal Vaccine: 50+ Years (1 of 1 - PCV) 2024 Zoster Vaccines (2 of 2) 2024 02/01/2019 DTaP,Tdap,and Td Vaccines (2 - Td or Tdap) 08/13/2032 08/13/2022 RSV Vaccine (60+ years old and patients) (1 - 1-dose 75+ series) 2049 Pneumococcal Vaccine: Pediatric (0-5 Years) and At-Risk Patients (6-50 Years) Aged Out No longer eligible based on patient's age to complete this topic Insurance MEDICARE [facility] Care Teams Aircraft Communicator Relationship Specialty Start Date End Date Muna Quiroz [address] [place] [address] PCP - General 05/28/22
--- OUTSIDE RECORDS SUMMARY | 2024-06-22 16:05 | XMS_ITS | Encounter Summary ---
Author Organization [facility] Address [address] [place] [address] Care Team Providers Care Pouring Crane Operator Name Role Phone Muna Quiroz Primary Care Provider [phone] Reason for Visit * Reason Onset Date Comments ? lab test 06/19/2022 Encounter Details Date Type Department Care Team (Late st Contact Info) Description 06/19/2022 Telephone [facility] [address] [place] [address] [phone] Telephone Intake, Staff ? lab test Social [...] Tel: Provider: Dr Yocasta Travis call from [facility] - Concerning test listed below, they cannot run this tesst and was wondering if there was another test to replace, [facility] lab is aware that a message was geneva sent to question. Pt is scheduled for follow up 08/04/2022, please advise, ty Autoimmune Neurology Antibody Comprehensive Panel w/ Reflex, Serum (Order [id number]) documented in this encounter Plan of Treatment Not on file documented as of this encounter Visit Diagnoses Not on filedocumented in this encounter Care Teams Pouring Crane Operator Relationship Specialty Start Date End Date Muna Quiroz [address] [place], [place] [address] PCP - General 05/28/22 documented as of this encounter
--- OUTSIDE RECORDS SUMMARY | 2024-06-22 16:05 | XMS_ITS | Clinical Summary ---
Author Organization [facility] Address [address] [place] [address] Care Team Providers Care Steel Barrel Reamer Name Role Phone Bob Benitez MD Primary Care Provider [phone] Allergies Active Allergy Reactions Criticality Noted Date [...] 1993 Colonoscopy 2019 Influenza Vaccine 12/02/2023 01/14/2021, , 02/01/2019 COVID-19 Vaccine ( - 2023- season) 2024 02/25/2021, 07/30/2020, 07/02/2020 Pneumococcal Vaccines 50+ (1 of 1 - PCV) 2024 Zoster (Shingles) Vaccine (1 of 2) 2024 Care Teams Steel Barrel Reamer Relationship Specialty Start Date End Date Bob Benitez MD [address] [place] [address] - Attn: [facility] [place] [address] PCP - General 01/20/18
--- OUTSIDE RECORDS SUMMARY | 2024-06-22 16:05 | XMS_ITS | Clinical Summary ---
Author Organization [facility] Address [id number] [place] [phone] Care Team Providers Care Quickbooks Bookkeeper Name Role Phone Bob Benitez MD Primary Care Provider Social History Tobacco Use Types Packs/Day Years Used Date Smoking Tobacco: Never Assessed Sex and Gender Information Value Date Recorded Sex Assigned at Not on file Legal Sex Male 5:22 PM EST Gender Identity Not on file Sexual Orientation [...] 11:45 AM EST Office Visit Orthopedic Surgery [facility] [address] [phone] Lulu Gutierrez MD [address] [phone] Health Maintenance Due Date Last Done Comments [...] exists Hypertension/CHF/CAD Annual BMP Blood Test 03/04/2024 Pneumococcal Vaccine: 50+ Years (1 of 1 [...] patient's age to complete this topic Meningococcal B Vacine Aged Out No lo nger eligible based on patient's age to complete [...] patient's age to complete this topic Insurance MEDICA[place] - [place] MEDICARE Care Teams Quickbooks Bookkeeper Relationship Specialty Start Date End Date Bob Benitez MD [address] [place] [address] PCP - General 01/22/22
== END 2024-06-22 15:20 | disposition home or self-care (01) ==
PROVIDERS: PCP Student in an Organized Health Care Education/Training Program; Visit Provider Physician Assistant
DX: M17.11 Unilateral primary osteoarthritis, right knee (principal)
CPT/HCPCS: 99024

== ENCOUNTER → 2024-06-22 14:58 | Outpatient (BNVA) | payer MEDICARE, MEDICAID, SELFPAY | PROVIDERS: PCP Student in an Organized Health Care Education/Training Program; Visit Provider Physician Assistant | DX: Z47.89 Encounter for other orthopedic aftercare (principal); M17.11 Unilateral primary osteoarthritis, right knee | CPT/HCPCS: 99212 ==

== ENCOUNTER 2024-07-25 09:15 | Outpatient (AMB) | payer MEDICARE, MEDICAID, SELFPAY ==
--- NOTE | 2024-07-25 09:22 | A.OFFVIS_ITS ---
Vital Signs 07/25/24 09:23 Height 6 ft Weight 286 lb BMI 38.8 Intake Visit Reasons: PO RT Knee 06/09/24 DR Intake Note: Lenin is a 49 year old male who presents with complaints of mild to moderate discomfort in his right knee after undergoing right knee arthroscopic surgery on 06/09/2024. The patient denies any fevers or chills. Allergies dabigatran etexilate Allergy (Intermediate, Verified 07/25/24 09:33) Cough, throat ulcer lisinopril Allergy (Intermediate, Verified 07/25/24 09:33) Cough Medication List - Last Reconciled 07/25/24 by Ace Schuler MD alfuzosin ER 10 mg PO DAILY amlodipine 5 mg PO DAILY apixaban (Eliquis) 5 mg PO BID [baclofen ] clonazepam 0.25 mg PO DAILY PRN clonazepam 1 mg (2 x 0.5 mg) PO BID 30 days duloxetine 60 mg PO DAILY ezetimibe 10 mg PO DAILY fexofenadine 180 mg PO DAILY finasteride 5 mg PO DAILY furosemide 40 mg PO DAILY galcanezumab-gnlm (Emgality Pen) mg subcut lamotrigine 150 mg PO BID 90 days metoprolol succinate ER 200 mg PO DAILY morphine ER 30 mg PO BID oxycodone 5 mg PO Q6H PRN pantoprazole 40 mg PO BID rosuvastatin 40 mg PO DAILY simvastatin (Zocor) 10 mg PO DAILY tadalafil 5 mg PO DAILY PFSH Medical History (Updated 06/07/24 @ 14:25 by Beverley Bolton RN) Wears hearing aid in both ears Presence of intrathecal baclofen pump Elevated cholesterol CAD (coronary artery disease) Cerebral embolism Alcohol dependence in remission Cardiomyopathy DVT (deep venous thrombosis) Muscle spasticity Central pain syndrome HTN (hypertension) Atrial fibrillation Sleep apnea Chronic post-traumatic stress disorder (PTSD) Major depression, recurrent, chronic CVA (cerebral vascular accident) Surgical History Hx of cardiac catheterization H/O colonoscopy History of carpal tunnel release Hx of nasal septoplasty History of back surgery Social History Household Members: None Housing: Apartment Are you a primary laboratory animal care veterinarian to a significant other at home: No Do you presently have visiting nurse or other home services: No 75 years or older and lives alone: No Patient Tobacco Use Status: Former Tobacco user Tobacco use type: Cigarette Substance Use Type: Marijuana Advance Directives Date on File: 07/29/22 Current occupational status: disabled Current occupation: rt hand dominant Physical Exam Vital Signs: BMI result Body Mass Index 38.8 Extrem Other: Right knee examination shows that the surgical incisions are well healed, no erythema, mild crepitus with range of motion, mild discomfort with range of motion, no instability Assessment & Plan Assessment & Plan (1) Right knee pain: Code(s): M25.561 - Pain in right knee Category: Medical Plan Mr. Hardin continues to do fairly well after undergoing right knee arthroscopic surgery on 06/09/2024. The patient does use his right leg for all of his mobility because of his left-sided paralysis. I discussed with the patient the fact that his discomfort should continue to improve over the next few months. He is not really able to modify his activity level. He will continue to stretch as much as possible. He will contact me prior to his follow-up appointment in 3 months should any questions or concerns arise. Feel free to call me at any time should questions regarding his orthopedic management arise. Coding Level of Care Code Global (83005) Diagnoses Right knee pain M25.561
[2024-07-25 09:23] VITALS: BMI 38.8
--- OUTSIDE RECORDS SUMMARY | 2024-07-25 10:14 | XMS_ITS | Encounter Summary ---
Author Organization [facility] Address [address] [place] [address] Care Team Providers Care Javascript Ui Developer Name Role Phone Bob Benitez MD Primary Care Provider [phone] Encounter Details Date Type Department Care Team (Late st Contact Info) Description 07/29/2018 Scanned Document [facility] 85 [facility] [address] [place] [phone] Beth Ponce MD Needs Valid Address Social [...] on filedocumented in this encounter Care Teams Javascript Ui Developer Relationship Specialty Start Date End Date Bob Benitez MD [address] [place] [address] - Attn: [facility] [place] [address] PCP - General 01/20/18 documented as of this encounter
--- OUTSIDE RECORDS SUMMARY | 2024-07-25 10:14 | XMS_ITS | Encounter Summary ---
Author Organization [facility] Address [address] [place] [address] Care Team Providers Care Sales Teacher Name Role Phone Bob Benitez MD Primary Care Provider [phone] Encounter Details Date Type Department Care Team (Late st Contact Info) Description 03/04/2018 Scanned Document [facility] [address] [place] [phone] Beth Ponce MD Needs Valid Address Social [...] on filedocumented in this encounter Care Teams Sales Teacher Relationship Specialty Start Date End Date Bob Benitez MD [address] [place] [address] - Attn: [facility] [place] [address] PCP - General 01/20/18 documented as of this encounter
--- OUTSIDE RECORDS SUMMARY | 2024-07-25 10:14 | XMS_ITS | Encounter Summary ---
Author Organization [facility] Address [address] [place] [phone] Care Team Providers Care Telesales Team Leader Name Role Phone Muna Lyle Primary Care P zamzam Reason for Visit * Reason Comments Follow-up Wrist, elbow, should er pain Encounter Details Date Type Department Care Team ([facility] st Contact Info) Description 07/04/2024 11:45 AM EST Office Visit Orthopedic Surgery - [place] 175 [facility] [address] [place] [phone] Lulu Gutierrez MD 175 [facility] [address] [place] [phone] Right wrist pain (Primary Dx) Social History Tobacco Use Types Packs/Day Years Used Date Smoking Tobacco: Never Assessed Sex and Gender Information Value Date Recorded Sex Assigned at Not on file Legal Sex Male 5:22 PM EST Gender Identity Not on file Sexual Orientation Not on file documented as of this encounter Last Filed Vital Signs Vital Sign Reading Time Taken Comments Blood Pressure - - Pulse - - Temperature - - Respiratory Rate - - Oxygen Saturation - - Inhaled Oxygen Concentration - - Weight 118 kg (260 lb) 07/04/2024 12:10 PM EST Height 182.9 cm (6') 07/04/2024 12:10 PM EST Body Mass Index 35.26 07/04/2024 12:10 PM EST documented in this encounter Progress Notes * Lulu Gutierrez MD - 07/04/2024 11:45 AM EST CHIEF COMPLAINT/REASON FOR VISIT: Follow-up with MRI. SUBJECTIVE: Patient is here today for follow-up of the MRI of his right wrist. He was initially seen back at the end of January. He has been treating with Dr. Cook over at [facility]. Patient hashemiplegia due to a brain aneurysm. He has control on his right side. He has issues with elbow aching, wrist aching as well as shoulder pain on the right. We had talked primarily about the wrist. We had over the MRI. Clinically there is been no interval significant change. OBJECTIVE: We focused at the patient's wrist. His hand has no atrophy. He has notable calluses on the palm. Hehas no obvious redness or swelling about the wrist. On close inspection perhaps there is some faintpuffiness over the STT joint. He has about 55 of extension and 70 of flexion. To palpation he is tender over the scapholunate interval. He is also slightly tender at the lunotriquetral interval. He is not tender at the ulnar head DRUJ or first dorsal compartment. He can make a full fist and circumduct the thumb. Patient brought in the MRI. I was able to finally get those opened and reviewed them here with him.He has some slight cartilaginous thinning of the radiocarpal joint and the ulnocarpal joint. He does have some wary of the scapholunate ligament particular on the dorsal side. There is no diego tear additional widening. 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 ASSESSMENT: 1. Right wrist pain Patient presented with some gradual onset of achiness and discomfort in the right wrist. I suspect that this is a combination of some very early STT arthritis but also he has some attritional changesin the scapholunate ligament. There is no diego tear widening but there is definitely some edema inthe area. From a treatment standpoint he could wear splint, he could try a steroid injection, he can use isfl-pzt-hrfaohn oral analgesics. However, there is not a great surgical option for this. If it were to get worse when he could undergo arthroscopy with debridement in an attempt to lessen some of the symptoms. However, the patient is reliant on the right side of his body and even that brief time would mean that he probably have to be in rehab. He is not inclined to want surgery now. I told him I be happy to check him back if he is worsening of his symptoms. PLAN: As needed Lulu Gutierrez MD documented in this encounter Plan of Treatment Not on file documented as of this encounter Visit Diagnoses Diagnosis Right wrist pain- Primary Pain in joint, forearm documented in this encounter Historical Medications * This list may reflect changes made after this encounter. baclofen (LIORESAL) 20 mg tablet Take by mouth 3 (three) times a day. PATIENT HAS PUMP rosuvastatin (CRESTOR) 40 mg tablet Take 1 tablet (40 mg total) by mouth 1 (one) time each day. 06/29/2024 pantoprazole (PROTONIX) 40 mg EC tablet Take 1 tablet (40 mg total) by mouth 2 (two) times a day. metoprolol succinate (TOPROL-XL) 200 mg 24 hr tablet Take 1 tablet (200 mg total) by mouth 1 (one) time each day. lamoTRIgine (LaMICtal) 150 mg tablet Take 1 tablet (150 mg total) by mouth 2 (two) times a day. ketoconazole (NIZORAL) 2 % cream APPLY TOPICALLY TO THE AFFECTED AREA TWICE DAILY NEEDED FOR FACIAL RASH 06/15/2024 furosemide (LASIX) 20 mg tablet Take 3 tablets (60 mg total) by mouth 1 (one) time each day. 06/12/2024 finasteride (PROSCAR) 5 mg tablet 07/02/2024 fexofenadine (RADHA) 180 mg tablet Take 1 tablet (180 mg total) by mouth. ezetimibe (ZETIA) 10 mg tablet Take 1 tablet (10 mg total) by mouth 1 (one) time each day. DULoxetine (CYMBALTA) [address] capsule Take 1 capsule (60 mg total) by mouth 1 (one) time each day. 04/30/2024 clonazePAM (KlonoPIN) 0.25 mg disintegrating tablet 1 tablet (0.25 mg total). 07/02/2024 clonazePAM (KlonoPIN) 1 mg tablet 1 tablet (1 mg total) 2 (two) times a day. Max Daily Amount: 2 mg 01/04/2020 alfuzosin (UROXATRAL) 10 mg 24 hr tablet Take 1 tablet (10 mg total) by mouth. at bedtime. 04/06/2024 Eliquis 5 mg tablet TAKE 1 TABLET BY MOUTH TWICE DAILY DIRECTED ON PACKAGE amLODIPine (NORVASC) 5 mg tablet Take 1 tablet (5 mg total) by mouth 1 (one) time each day. added in this encounter Care Teams Telesales Team Leader Relationship Specialty Start Date End Date Muna Lyle PA [address] [place] [address] PCP - General 07/04/24 documented as of this encounter
--- OUTSIDE RECORDS SUMMARY | 2024-07-25 10:14 | XMS_ITS | Clinical Summary ---
Author Organization [facility] Address [address] [place] [address] Care Team Providers Care Compotype Operator Name Role Phone Muna Quiroz Primary Care Provider [phone] Allergies Active Allergy Reactions Criticality Noted Date [...] muscle weakness 05/28/2022 Anemia 05/28/2022 CAD in jackson artery 05/28/2022 Campylobacter diarrhea 05/28/2022 Cardiomyopathy 05/28/2022 Cerebral embolism 05/28/2022 Class 1 obesity 05/28/2022 Deformity of knee joint 05/28/2022 Depressive disorder 05/28/2022 Diarrhea 05/28/2022 Disability of walking 05/28/2022 Disease of anterior pituitary 05/28/2022 RUQ pain 05/28/2022 Hypercholesterolemia 05/28/2022 Hyperprolactinemia 05/28/2022 Hyperglycemia 05/28/2022 Impingement syndrome, shoulder, left 05/28/2022 Left knee injury 05/28/2022 Left spastic hemiparesis 05/28/2022 Left spastic hemiplegia 05/28/2022 Muscle spasticity 05/28/2022 Obstructive sleep apnea [...] 1974 Hepatitis C Screening 1974 Sigmoidoscopy 1974 Medicare AWV 1975 Hepatitis B Vaccines (1 of 3 - 19+ 3-dose series) 1993 COVID-19 Vaccine (2023-2 5 season) 2024 02/18/2022, 07/24/2021, 02/25/2021, Additional history exists Influenza Vaccine (#1) 2024 , 02/18/2022, 02/18/2022, Additional history exists Alcohol/Substance Use Screening 05/03/2024 Depression Screening and Follow-Up 05/03/2024 Social Drivers of Health Anh ual Screening 05/03/2024 Pneumococcal Vaccine: 50+ Ye ars (1 of 1 - PCV) 2024 Zoster Vaccines (2 of 2) 2024 02/01/2019 DTaP,Tdap,and Td Vaccines (2 - Td or Tdap) 08/13/2032 08/13/2022 RSV Vaccine (60+ years old a nd patients) (1 - 1-dose 75+ series) 2049 Insurance MEDICARE [facility] Care Teams Compotype Operator Relationship Specialty Start Date End Date Muna Quiroz [address] [place] [address] PCP - General 05/28/22
--- OUTSIDE RECORDS SUMMARY | 2024-07-25 10:14 | XMS_ITS | Referral Summary ---
Author Organization [facility] Address [address] [place] [address] Care Team Providers Care Film Technician Name Role Phone Muna Quiroz Primary Care Provider [phone] Allergies Active Allergy Reactions Criticality Noted Date [...] muscle weakness 05/28/2022 Anemia 05/28/2022 CAD in [place] artery 05/28/2022 Campylobacter diarrhea 05/28/2022 Cardiomyopathy 05/28/2022 [...] of Treatment Not on file Insurance MEDICARE [facility] Care Teams Film Technician Relationship Specialty Start Date End Date Muna Quiroz [address] [place] [address] PCP - General 05/28/22
--- OUTSIDE RECORDS SUMMARY | 2024-07-25 10:14 | XMS_ITS | Encounter Summary ---
Author Organization [facility] Address [address] [place] [address] Care Team Providers Care Ski Lift Attendant Name Role Phone Muna Quiroz Primary Care Provider [phone] Reason for Visit * Reason Onset Date Comments ? lab test 06/19/2022 Encounter Details Date Type Department Care Team (Late st Contact Info) Description 06/19/2022 Telephone [facility] [address] [place] [phone] Telephone Intake, Staff ? lab test Social [...] Tel: Provider: Dr Yocasta Travis call from [facility] - Concerning test listed below, they cannot run this tesst and was wondering if there was another test to replace, [facility] lab is aware that a message was geneva sent to question. Pt is scheduled for follow up 08/04/2022, please advise, ty Autoimmune Neurology Antibody Comprehensive Panel w/ Reflex, Serum (Order [id number]) documented in this encounter Plan of Treatment Not on file documented as of this encounter Visit Diagnoses Not on filedocumented in this encounter Care Teams Ski Lift Attendant Relationship Specialty Start Date End Date Muna Quiroz [address], [place] [address] PCP - General 05/28/22 documented as of this encounter
--- OUTSIDE RECORDS SUMMARY | 2024-07-25 10:14 | XMS_ITS | Clinical Summary ---
Author Organization 175 [facility] Address [address] [place] [address] Phone Care Team Providers Care Sales Representatives Name Role Phone Muna Lyle Primary Care P rovider Allergies Active Allergy Reactions Criticality Noted Date Comments Dabigatran Etexilate Cough,Nausea And Vomiting 03/02/2018 esophagus ulcer Other reaction(s): throat ulcer Lisinopril Cough,Nausea And Vomiting Low 03/02/2018 Medications amLODIPine (NORVASC) 5 mg tablet Take 1 tablet (5 mg total) by mouth 1 (one) time each day. Active Eliquis 5 mg tablet TAKE 1 TABLET BY MOUTH TWICE DAILY DIRECTED ON PACKAGE Active alfuzosin (UROXATRAL) 10 mg 24 hr tablet Take 1 tablet (10 mg total) by mouth. at bedtime. 4 Active clonazePAM (KlonoPIN) 1 mg tablet 1 tablet (1 mg total) 2 (two) times a day. Max Daily Amount: 2 mg 0 Active clonazePAM (KlonoPIN) 0.25 mg disintegrating tablet 1 tablet (0.25 mg total). 5 Active DULoxetine (CYMBALTA) [address] capsule Take 1 capsule (60 mg total) by mouth 1 (one) time each day. 4 Active ezetimibe (ZETIA) 10 mg tablet Take 1 tablet (10 mg total) by mouth 1 (one) time each day. Active fexofenadine (RADHA) 180 mg tablet Take 1 tablet (180 mg total) by mouth. Active finasteride (PROSCAR) 5 mg tablet 5 Active furosemide (LASIX) 20 mg tablet Take 3 tablets (60 mg total) by mouth 1 (one) time each day. 5 Active ketoconazole (NIZORAL) 2 % cream APPLY TOPICALLY TO THE AFFECTED AREA TWICE DAILY NEEDED FOR FACIAL RASH Active lamoTRIgine (LaMICtal) 150 mg tablet Take 1 tablet (150 mg total) by mouth 2 (two) times a day. Active metoprolol succinate (TOPROL-XL) 200 mg 24 hr tablet Take 1 tablet (200 mg total) by mouth 1 (one) time each day. Active pantoprazole (PROTONIX) 40 mg EC tablet Take 1 tablet (40 mg total) by mouth 2 (two) times a day. Active rosuvastatin (CRESTOR) 40 mg tablet Take 1 tablet (40 mg total) by mouth 1 (one) time each day. 5 Active baclofen (LIORESAL) 20 mg tablet Take by mouth 3 (three) times a day. PATIENT HAS PUMP Active Active Problems Problem Noted Date Diagnosed Date Right wrist pain 07/05/2024 Encounters Date Type Department Care Team Description 07/04/2024 11:45 AM EST Office Visit Orthopedic Surgery - [address] [place] [address] Lulu Gutierrez MD Right wrist pain (Primary Dx) from Last 3 Months Surgical History Surgery Date Site/Laterality Comments CARPAL TUNNEL RELEASE 05/03/2020 - 05/02/2021 Right ELBOW SURGERY 05/03/2020 - 05/02/2021 Right ulnar nerve decompression Social History Tobacco Use Types Packs/Day Years Used Date Smoking Tobacco: Never Assessed Sex and Gender Information Value Date Recorded Sex Assigned at Not on file Legal Sex Male 5:22 PM EST Gender Identity Not on file Sexual Orientation Not on file Obstetrics History Last Filed Vital Signs Vital Sign Reading Time Taken Comments Blood Pressure - - Pulse - - Temperature - - Respiratory Rate - - Oxygen Saturation - - Inhaled Oxygen Concentration - - Weight 118 kg (260 lb) 07/04/2024 12:10 PM EST Height 182.9 cm (6') 07/04/2024 12:10 PM EST Body Mass Index 35.26 07/04/2024 12:10 PM EST Plan of Treatment Health Maintenance Due Date [...] Insurance MED[place] - [place] MED[place]ARE Care Teams Sales Representatives Relationship Specialty Start Date End Date Muna Lyle PA [address] [place] [phone] PCP - General 07/04/24
--- OUTSIDE RECORDS SUMMARY | 2024-07-25 10:14 | XMS_ITS | Clinical Summary ---
Author Organization [facility] Address [address] [place] [address] Care Team Providers Care Sales Assistant Entertainment And Media Name Role Phone Bob Benitez MD Primary Care Provider [phone] Allergies Active Allergy Reactions Criticality Noted Date [...] Vaccine (1 of 2) 2024 Care Teams Sales Assistant Entertainment And Media Relationship Specialty Start Date End Date Bob Benitez MD [address] [place] [address] - Attn: Vinay [facility] [place] [address] PCP - General 01/20/18
== END 2024-07-25 09:55 | disposition home or self-care (01) ==
LOC: HO.HOS 09:15
PROVIDERS: PCP Student in an Organized Health Care Education/Training Program; Visit Provider Orthopaedic Surgery
DX: M25.561 Pain in right knee (principal)
CPT/HCPCS: 99024

== ENCOUNTER → 2024-07-25 09:15 | Outpatient (BNVA) | payer MEDICARE, MEDICAID, SELFPAY | PROVIDERS: PCP Student in an Organized Health Care Education/Training Program; Visit Provider Orthopaedic Surgery | DX: M25.561 Pain in right knee (principal) | CPT/HCPCS: 99212 ==

== ENCOUNTER 2024-08-09 11:24 | Outpatient (AMB) | payer MEDICARE, MEDICAID, SELFPAY ==
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
--- OUTSIDE RECORDS SUMMARY | 2024-08-09 13:29 | XMS_ITS | Continuity of Care Document ---
Author Organization [facility] Address [address] [place] [address]- Care Team Providers Care Cafeteria Team Leader Name Role Phone uMna Cortes Primary Care P elizabet [id number] Date(s): 07/06/24 - 08/05/[address] [address]- Encounter Type: Triage Allergies, Adverse Reactions, Alerts [...] 01/18/20 Kalia rded tetanus/diphtheria/pertussis, acel(Tdap) 08/13/22 Given [id number] bivalent booster vax 02/18/22 Recorded Influenza Virus Vaccine (oldterm) 01/14/21 Recorde d Influenza Virus Vaccine (oldterm) 02/01/19 Recorde d zoster vaccine, inactivated 02/01/19 Recorded 1Result Comment: Administered at [facility] 24 Hour Allergy = 180 mg, By Mouth, Daily, 0 Refills, Maintenance, 08/20/21 10:36:00 AM EDT, Partial fill upon patient request if the prescription is for a schedule II opioid drug. Start Date: 08/20/21 Status: Ordered Repeat number: 1 amLODIPine 5 mg oral tablet 1 tablet, By Mouth, Daily, # 90 tablet, 1 Refills, Maintenance, 05/11/24 10:47:00 AM EST, [facility] #[id number], 183, cm, 05/05/24 13:30:00 EST, Height, 69.2, [...] Daily, # 90 tablet, 3 Refills, Maintenance, 06/29/24 2:13:00 PM EST, Tablet, [facility] #[id number], Partial fill upon patient request if the prescription is for a schedule II opioid drug., 183, cm, 06/05/24 10:59:00 EST, Height, 69.2, kg, 06/16/23 19:29:00 EST, Dry Weight Start Date: 06/29/24 Status: Ordered Quantity: 90.0 Unit: tablet Repeat number: 4 duloxetine 60 mg oral enteric coated capsule TAKE 1 CAPSULE BY MOUTH DAILY Start Date: 07/21/23 Status: Ordered Repeat number: 1 Eliquis 5 mg oral tablet 1 tablet = 5 mg, By Mouth, 2 times a day, as directed on package labeling., # 180 tablet, 1 Refills, Maintenance, 11/29/23 9:25:00 AM EDT, Tablet, [facility] #[id number], Partial fill upon patientrequest if the prescription [...] tablet, By Mouth, Daily, # 90 tablet, 0 Refills, Maintenance, 06/22/24 11:40:00 AM EST, [facility] #[id number], 183, cm, 06/05/24 10:59:00 EST, Height, 69.2, kg, 06/16/23 19:29:00 EST, Dry Weight Start Date: 06/22/24 Status: Ordered Quantity: 90.0 Unit: tablet Repeat number: 1 Fax to [facility] Fax to [facility] [...] mg, 3, tablet, By Mouth, Daily, # 270 tablet, Refills 2, Tot. Refills 2, Maintenance, 07/24/24 8:42:00 AM EDT, Route to Pharmacy Electronically, [facility] #[id number], Partial fill upon patient request if the prescription is for a schedule II opioid drug., 183, cm, 06/05/24 10:59:00 EST, Height, 69.2, kg, 06/16/23 19:29:00 EST, Dry Weight Start Date: 07/24/24 Status: Ordered Quantity: 270.0 Unit: tablet Repeat number: 3 metoprolol 200 mg oral tablet, extended release 1 tablet = 200 mg, By Mouth, Daily, # 90 tablet, 3 Refills, Maintenance, 10/01/23 10:58:00 AM EDT, ER Tablet, [facility] #[id number], Partial fill upon patient request if the [...] Date: 11/05/22 Status: Ordered Repeat number: 1 Problem List Condition Confirmation Course Effective Dates Status Health Status Informant Gait abnormality Confirmed Active Anemia Confirmed Active Atrial fibrillation Confirmed Active Cardiomyopathy Confirmed Active Cerebral embolism Confirmed Active CVA (cerebrovascular accident) Confirmed Active CAD in [place] artery Confirmed Active Coronary artery disease Confirmed [...] Unknown 1 Unknown Unknown Unknown Unknown Unknown Condjoe onal Active Unknown Procedure Provider Procedure [...] Care Team Personnel Name: Beverley Akers Position: [facility] Onco RN Member Role: Primary Care Nurse Name: Emery Acosta RN Position: [facility] ED RN W/OE and Tasks Member Role: Primary Care Nurse Name: Moni Branham MA Position: [facility] [place] Office Staff Member Role: Lifetime Consulting Physician Name: Bianca Lopez RN Position: [facility] RN Member Role: Primary Care Nurse Name: Nolberto York NP Position: [facility] PCO Associate Professional Member Role: Primary Care Nurse Address: [address] [place] [address] Telecom: Name: Muna Cortes Position: [facility] PCO Associate Professional Member Role: PCP Address: [address] [place] [id number] Telecom: Name: Sofya Gallegos RN Position: [facility] RN Member Role: Primary Care Nurse [...]
--- OUTSIDE RECORDS SUMMARY | 2024-08-09 13:29 | XMS_ITS | Encounter Summary ---
Author Organization [facility] Address [address] [place] [address] Care Team Providers Care Environment Coordinator Name Role Phone Bob Benitez MD Primary Care Provider [phone] Encounter Details Date Type Department Care Team (Late st Contact Info) Description 03/04/2018 Scanned Document [facility] [address] [place] [phone] Beth Ponce MD Needs Valid Address Social [...] on filedocumented in this encounter Care Teams Environment Coordinator Relationship Specialty Start Date End Date Bob Benitez MD [address] [place] [address] - Attn: [facility] [place] [address] PCP - General 01/20/18 documented as of this encounter
--- OUTSIDE RECORDS SUMMARY | 2024-08-09 13:29 | XMS_ITS | Clinical Summary ---
Author Organization 175 [facility] Address [address] [place] [address] Phone Care Team Providers Care Senior Advisor Name Role Phone Muna Lyle Primary Care [...] AM EST Office Visit Orthopedic Surgery - [address] [place] [phone] Lulu Gutierrez MD Right wrist pain [...] 07/04/2024 12:10 PM EST Plan of Treatment Upcoming Encounters Date Type Department Care Team (Late st Contact Info) Description 08/14/2024 10:00 AM EDT Evaluation [facility] Speech Therapy [address] [facility] [address] [place] [address] Kalli Sr, FRUIT DISTRIBUTOR Health Maintenance Due Date Last Done Comments Hepatitis B Vaccines (1 of 3 - 19+ 3-dose series) 1993 Cholesterol Screening (Lipid Panel) 04/04/2022 Colorectal Cancer Screening: Colonoscopy 04/04/2022 Depression Screening 04/04/2022 HIV Screening 04/04/2022 Hepatitis C Screening 04/04/2022 Medicare Annual Wellness Visit 04/04/2022 Social Influencers of Health Screening 04/04/2022 COVID-19 Vaccine ( season) 2024 02/16/2023, 02/18/2022, 07/24/2021, Additional history exists Hypertension/CHF/CAD Annual BMP Blood Test 03/04/2024 Pneumococcal Vaccine: 50+ Years (1 of 1 - PCV) 2024 Zoster Vaccines (2 of 2) 2024 02/01/2019 Influenza Vaccine (Season Ended) 2025 02/16/2023, 02/18/2022, 01/14/2021, Additional history exists DTaP,Tdap,and Td Vaccines (2 - Td or [...] age to complete this topic Meningococcal B Vaccine Aged Out No l onger eligible based on patient's age to complete [...] Insurance [place] - [place] Care Teams Senior Advisor Relationship Specialty Start Date End Date Muna Lyle PA [address] [place] [phone] PCP - General 07/04/24
--- OUTSIDE RECORDS SUMMARY | 2024-08-09 13:29 | XMS_ITS | Clinical Summary ---
Author Organization [facility] Address [address] [place] [address] Care Team Providers Care Department Sales Manager Name Role Phone Bob Benitez MD Primary Care Provider [phone] Allergies Active Allergy Reactions Criticality Noted Date [...] Vaccine (1 of 2) 2024 Care Teams Department Sales Manager Relationship Specialty Start Date End Date Bob Benitez MD [address] [place] [address] - Attn: Vinay [facility] [place] [address] PCP - General 01/20/18
--- OUTSIDE RECORDS SUMMARY | 2024-08-09 13:29 | XMS_ITS | Encounter Summary ---
Author Organization [facility] Address [address] [place] [address] Care Team Providers Care Conservation Policy Analyst Name Role Phone Bob Benitez MD Primary Care Provider [phone] Encounter Details Date Type Department Care Team (Late st Contact Info) Description 07/29/2018 Scanned Document [facility] [address] [place] [phone] Beth Ponce MD Needs Valid Address Social [...] on filedocumented in this encounter Care Teams Conservation Policy Analyst Relationship Specialty Start Date End Date Bob Benitez MD [address] [place] [address] - Attn: [facility] [place] [place] [address] PCP - General 01/20/18 documented as of this encounter
--- OUTSIDE RECORDS SUMMARY | 2024-08-09 13:29 | XMS_ITS | Data Portability ---
Author Organization [place] [facility] Address [address] [place] [phone] Care Team Providers Care Imposer Name Role Phone CATRACHITO VILLANUEVA Primary Care [...] By Organization Details Last Modified Time 04/07/2019 [id number] Thank you for yo ur visit with [facility] today. You were evaluated for a head injury today. At this time, you do not appear to have evidence of a serious injury such as bleeding. However, your condition can private branch exchange installer the next 24-48 hours. We recommend that [...] condition between 8am-10pm, please call [facility] at [phone] to help navigate your care. pedro luis Not available 04/07/2019 14:22:21 Reason for Referral None Reported. Problems Name Problem SNOMED Code Status Onset Date Resolution Date Notes Provider Name and Address Organization Details Recorded Time Hypertensive disorder 53339970 Active 2018 SOHAN GAINES NP [address], [place], [address], [place] [facility] 9 13:59:42 Problem Notes None recorded. Medical Equipment None Reported. Allergies Allergen ID Allergen Name Allergen Category Reaction Reaction Severity Criticality Documentation Date Start Date Code Code System Note Provider Name and Address Organization Details Recorded Time 98589 lisinopri l medicatio n Not available Not available Not available 04/07/2019 24980 RxNorm SOHAN GAINES NP [address] [place], [address], [place] [facility] 9 13:54:25 74690 Pradaxa medicatio n Not available Not available Not available 04/07/2019 26845 46 RxNorm SOHAN GAINES NP [address], [place], [address], [place] [facility] 9 [...] Tobacco Smoking Status Former Smoker SOHAN GAINES, IMPORT CUSTOMER SERVICE MANAGER [address] [place], [address], [place] [facility] 04/07/2019 14:01:15 Do You [...] SNOMED-CT Code Diagnosis ICD10 Code Diagnosis Note [id number] SOHAN GAINES NP [facility] [address] [place] [address] 04/07/2019 13:52:52 04/10/2019 13:40:27 Jaw pain 056559013 R68.84 Rib pain 004298520 R07.8 1 Fall on sa me level from slipping, tripping or stumbling 748798044 W01.0XXA Contusion of rib 2057786 06 S20.222A Health Concerns Section Related Observation LastModified by Organization Detai ls LastModified Time None Recorded Concern Status LastModified by Organization Details LastModified Time None Recorded Advance Directives Directive Y: Payers Encounter Date Sequence Insurance Name Policy Number Policy Munguia Covered Member ID Munguia Member ID Guarantor Name 04/07/2019 1 [place] [employer] Lenin Hardin [id number] 04/07/2019 2 [place] [facility] Lenin Hardin [id number] Notes Date Note Type Note Provider Name [...] vomiting. SOHAN GAINES NP [address], [place], [address], [place] [facility] 04/07/2019 15:23:13
--- OUTSIDE RECORDS SUMMARY | 2024-08-09 13:29 | XMS_ITS | Referral Summary ---
Author Organization [facility] Address [address] [place] [address] Care Team Providers Care Haul Truck Driver Name Role Phone Muna Quiroz Primary Care Provider [phone] Allergies Active Allergy Reactions Criticality Noted Date [...] muscle weakness 05/28/2022 Anemia 05/28/2022 CAD in [place] artery 05/28/2022 Campylobacter diarrhea 05/28/2022 Cardiomyopathy 05/28/2022 [...] of Treatment Not on file Insurance MEDICARE [facility] Care Teams Haul Truck Driver Relationship Specialty Start Date End Date Muna Quiroz [address] [place] [address] PCP - General 05/28/22
--- OUTSIDE RECORDS SUMMARY | 2024-08-09 13:29 | XMS_ITS | Encounter Summary ---
Author Organization [facility] Address [address] [place] [address] Care Team Providers Care Uniform Cap Operator Name Role Phone Muna Quiroz Primary Care Provider [phone] Reason for Visit * Reason Onset Date Comments ? lab test 06/19/2022 Encounter Details Date Type Department Care Team (Late st Contact Info) Description 06/19/2022 Telephone [facility] [address] [place] [address] [phone] Telephone Intake, Staff ? lab test Social [...] Tel: Provider: Dr Yocasta Travis call from [facility] - Concerning test listed below, they cannot run this tesst and was wondering if there was another test to replace, [facility] lab is aware that a message was geneva sent to question. Pt is scheduled for follow up 08/04/2022, please advise, ty Autoimmune Neurology Antibody Comprehensive Panel w/ Reflex, Serum (Order [id number]) documented in this encounter Plan of Treatment Not on file documented as of this encounter Visit Diagnoses Not on filedocumented in this encounter Care Teams Uniform Cap Operator Relationship Specialty Start Date End Date Muna Quiroz [address], [place] [address] PCP - General 05/28/22 documented as of this encounter
--- OUTSIDE RECORDS SUMMARY | 2024-08-09 13:29 | XMS_ITS | Clinical Summary ---
Author Organization [facility] Address [address] [place] [address] Care Team Providers Care Entry Driver Operator Name Role Phone Muna Quiroz Primary Care Provider [phone] Allergies Active Allergy Reactions Criticality Noted Date [...] muscle weakness 05/28/2022 Anemia 05/28/2022 CAD in sam[place] artery 05/28/2022 Campylobacter diarrhea 05/28/2022 Cardiomyopathy 05/28/2022 [...] 2024 02/18/2022, 07/24/2021, 02/25/2021, Additional history exists Alcohol/Substance Use Screening 05/03/2024 Depression Screening and Follow-Up 05/03/2024 Social Drivers of Health Anh ual Screening 05/03/2024 Pneumococcal Vaccine: 50+ Ye ars (1 of 1 - PCV) 2024 Zoster Vaccines (2 of 2) 2024 02/01/2019 Influenza Vaccine (Season Ended) 2025 02/18/2022, 02/18/2022, 02/18/2022, Additional history exists DTaP,Tdap,and Td Vaccines (2 - Td or Tdap) 08/13/2032 08/13/2022 RSV Vaccine (60+ years old a nd patients) (1 - 1-dose 75+ series) 2049 Insurance MEDICARE [facility] Care Teams Entry Driver Operator Relationship Specialty Start Date End Date Muna Quiroz [address] [place] [address] PCP - General 05/28/22
== END 2024-08-09 11:42 | disposition home or self-care (01) ==
LOC: HO.HOP 11:24
PROVIDERS: PCP Student in an Organized Health Care Education/Training Program; Visit Provider Psychiatry & Neurology Psychiatry
DX: F43.12 Post-traumatic stress disorder, chronic (principal); F33.42 Major depressive disorder, recurrent, in full remission
CPT/HCPCS: 99214

== ENCOUNTER → 2024-08-09 11:24 | Outpatient (BNVA) | payer MEDICARE, MEDICAID, SELFPAY | PROVIDERS: PCP Student in an Organized Health Care Education/Training Program; Visit Provider Psychiatry & Neurology Psychiatry | DX: F43.12 Post-traumatic stress disorder, chronic (principal); F33.42 Major depressive disorder, recurrent, in full remission | CPT/HCPCS: 99212 ==

== ENCOUNTER 2024-10-20 11:07 | Outpatient (REF) | payer MEDICARE, MEDICAID, SELFPAY ==
[2024-10-20 12:08] LABS: MANUAL DIFF FLAG NO
[2024-10-20 12:27] LABS: Basophils Absolute Auto 0.1 X10*3/uL (0.0-0.2); Basophils Percent Auto 1.1 % (0-2); Eosinophils Absolute Auto 0.2 X10*3/uL (0.0-0.4); Eosinophils Percent Auto 2.3 % (0-4); Hematocrit 40.3 % (42.0-52.0); Hemoglobin 13.5 g/dl (14.0-18.0); Imm Gran Abs Auto 0.05 X10*3/uL (0.00-0.03); Imm Gran Pct Auto 0.7 % (0.0-0.4); Lymphocytes Absolute Auto 1.6 X10*3/uL (1.2-4.9); Lymphocytes Percent Auto 22.7 % (20-40); Mean Corpuscular HGB Conc 33.5 g/dl (31.0-36.0); Mean Corpuscular Hemoglobin 30.8 pg (27.0-33.0); Mean Platelet Volume 9.1 fL (9.4-12.4); Monocytes Absolute Auto 0.7 X10*3/uL (0.1-1.2); Monocytes Percent Auto 9.5 % (2-11); Neutrophils Absolute Auto 4.5 x10*3/uL (2.0-8.3); Neutrophils Percent Auto 63.7 % (45-73); Platelet Count 344 X10*3/uL (160-400); Red Blood Count 4.38 X10*6/uL (4.60-5.80); Red Cell Distribution Width 12.3 % (11.0-16.0)
[2024-10-20 13:12] LABS: Alanine Aminotransferase 28 U/L (0-40); Albumin Level 4.9 g/dL (3.5-5.0); Alkaline Phosphatase 64 U/L (39-117); Anion Gap 10 (12-20); Aspartate Amino Transferase 26 U/L (5-37); Bilirubin Total 1.1 mg/dL (0.0-1.0); Blood Urea Nitrogen 12 mg/dL (9-16); Calcium 9.4 mg/dL (8.4-10.2); Carbon Dioxide 31 mmol/L (22-29); Chloride 103 mmol/L (96-108); Cholesterol 119 mg/dL (<200); Estimated Glomerular Filt Rate > 60; Glucose Random 125 mg/dL (60-115); HDL Cholesterol 38 mg/dL (>40); LDL Cholesterol Calculated 52 mg/dL (<100); Potassium 3.8 mmol/L (3.3-5.1); Sodium 140 mmol/L (135-145); Total Protein 7.5 g/dL (6.5-8.0); Triglycerides 145 mg/dL (<150)
[2024-10-20 13:28] LABS: TSH reflex Free T4 1.34 uIU/mL (0.32-4.0)
[2024-10-20 13:29] LABS: Vitamin B12 391 pg/mL (200-900)
[2024-10-23 17:38] LABS: Homocysteine 8.6 umol/L (< or = 15.2)
[2024-10-24 20:23] LABS: Lamotrigine Lamictal 7.8 mcg/mL (2.5-15.0)
== END 2024-10-20 11:08 | disposition home or self-care (01) ==
LOC: HO.LAB 11:07
PROVIDERS: PCP Student in an Organized Health Care Education/Training Program; Visit Provider Psychiatry & Neurology Psychiatry
DX: F43.12 Post-traumatic stress disorder, chronic (principal); I63.9 Cerebral infarction, unspecified; F33.9 Major depressive disorder, recurrent, unspecified
CPT/HCPCS: 36415; 80053; 80061; 80175; 82607; 82746; 83090; 84443; 85025; 99212

== ENCOUNTER 2024-10-20 11:07 | Outpatient (AMB) | payer MEDICARE, MEDICAID, SELFPAY ==
--- OUTSIDE RECORDS SUMMARY | 2024-10-20 11:31 | XMS_ITS | Referral Summary ---
Author Organization [facility] Address [address] [place] [address] Care Team Providers Care Quality Assurance Test Program Manager Name Role Phone Muna Quiroz Primary Care Provider [phone] Encounters Date Type Department Care Team Description 09/01/2024 Refill [facility] [address] [place] [id number] Hayley Zeng MD from Last 3 Months Allergies Active Allergy Reactions Criticality Noted Date [...] total) every 30 days. 3 mL 1 09/08/19 25 9:10 PM EDT 025 Active Active Problems Problem Noted Date Diagnosed Date Bilateral occipital neuralgia 06/18/2022 Abnormal gait due to muscle weakness 05/28/2022 Anemia 05/28/2022 CAD in [place] artery 05/28/2022 Campylobacter diarrhea 05/28/2022 Cardiomyopathy 05/28/2022 [...] 67 08/19/2022 9:45 AM EDT Temperature 35.9 C (96.7 F) 05/28/2022 10:48 AM EST Respiratory Rate - - Oxygen Saturation - - Inhaled Oxygen Concentration - - Weight - - Height - - Body Mass Index - - Plan of Treatment Not on file Insurance MEDICARE [facility] Care Teams Quality Assurance Test Program Manager Relationship Specialty Start Date End Date Muna Quiroz PA [address] [place] [address] PCP - General 05/28/22
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
== END 2024-10-20 12:22 | disposition home or self-care (01) ==
LOC: HO.HOP 11:07
PROVIDERS: PCP Student in an Organized Health Care Education/Training Program; Visit Provider Psychiatry & Neurology Psychiatry
DX: F33.9 Major depressive disorder, recurrent, unspecified (principal); F43.12 Post-traumatic stress disorder, chronic
CPT/HCPCS: 90833; 99213

== ENCOUNTER 2024-10-26 09:27 | Outpatient (AMB) | payer MEDICARE, MEDICAID, SELFPAY ==
[2024-10-26 09:35] VITALS: BMI 38.8
--- NOTE | 2024-10-26 09:35 | A.OFFVIS_ITS ---
Vital Signs 10/26/24 09:35 Height 6 ft Weight 286 lb BMI 38.8 Intake Visit Reasons: Right knee pain Intake Note: Lenin is a 49 year old male who presents with complaints of right knee pain. He describes his pain as sharp in nature. He has undergone right knee arthroscopic surgery in the past. He got temporary relief from the procedure. He denies any locking or giving way. He has tried Tylenol and anti-inflammatory medicines which gave him only mild relief. He has also had cortisone injections. The most recent cortisone injection gave him no relief. He has failed the last 3 months of conservative treatment which has included physical therapy exercises, a home exercise program, Tylenol and anti-inflammatory medicines. At this point his right knee pain is interfering with his activities of daily living and his ability to sleep well through the night. Allergies dabigatran etexilate Allergy (Intermediate, Verified 10/26/24 09:35) Cough, throat ulcer lisinopril Allergy (Intermediate, Verified 10/26/24 09:35) Cough Medication List - Last Reconciled 10/26/24 by Ace Schuler MD alfuzosin ER 10 mg PO DAILY amlodipine 5 mg PO DAILY apixaban (Eliquis) 5 mg PO BID [baclofen ] clonazepam 0.25 mg PO DAILY PRN clonazepam 1 mg (2 x 0.5 mg) PO BID 30 days duloxetine 60 mg PO DAILY ezetimibe 10 mg PO DAILY fexofenadine 180 mg PO DAILY finasteride 5 mg PO DAILY furosemide 40 mg PO DAILY galcanezumab-gnlm (Emgality Pen) mg subcut lamotrigine 150 mg PO BID 90 days metoprolol succinate ER 200 mg PO DAILY pantoprazole 40 mg PO BID rosuvastatin 40 mg PO DAILY simvastatin (Zocor) 10 mg PO DAILY tadalafil 5 mg PO DAILY [facility] Medical History (Updated 10/26/24 @ 14:36 by Ace Schuler MD) Wears hearing aid in both ears Presence of intrathecal baclofen pump Elevated cholesterol CAD (coronary artery disease) Cerebral embolism Alcohol dependence in remission Cardiomyopathy DVT (deep venous thrombosis) Muscle spasticity Central pain syndrome HTN (hypertension) Atrial fibrillation Sleep apnea Chronic post-traumatic stress disorder (PTSD) Major depression, recurrent, chronic CVA (cerebral vascular accident) Surgical History Hx of cardiac catheterization H/O colonoscopy History of carpal tunnel release Hx of nasal septoplasty History of back surgery Social History Household Members: None Housing: Apartment Are you a primary home care coordinator to a significant other at home: No Do you presently have visiting nurse or other home services: No 75 years or older and lives alone: No Patient Tobacco Use Status: Former Tobacco user Tobacco use type: Cigarette Substance Use Type: Marijuana Advance Directives Date on File: 07/29/22 Current occupational status: disabled Current occupation: rt hand dominant Physical Exam Vital Signs: BMI result Body Mass Index 38.8 Extrem Other: Right knee examination shows a minimal effusion, mild crepitus with range of motion, pain with range of motion, no instability Results Reviewed Results Reviewed: X-rays of the patient's right knee taken previously show joint space narrowing, subchondral sclerosis, no acute bony abnormalities Assessment & Plan Assessment & Plan (1) Right knee pain: Code(s): M25.561 - Pain in right knee Category: Medical (2) Osteoarthritis of right knee: Code(s): M17.11 - Unilateral primary osteoarthritis, right knee Category: Medical Plan Mr. Hardin presents with right knee pain due to osteoarthritis. I had a lengthy discussion with the patient regarding the treatment options. He has had cortisone injections in the past which gave him minimal relief. Thus, I will see whether or not the patient's insurance company will cover a viscosupplementation injection such as Durolane. I will see him back once the injection is available. Feel free to call me at any time should questions regarding his orthopedic management arise. I spent 22 minutes in reviewing the patient's records and imaging studies, seeing the patient and documenting in the medical record. Coding Level of Care Code Est Pt Level 3 (49766) Complex EM visit Add On G2211 Diagnoses Right knee pain M25.561 Osteoarthritis of right knee M17.11
--- OUTSIDE RECORDS SUMMARY | 2024-10-26 10:29 | XMS_ITS | Referral Summary ---
Author Organization [facility] Address [address] [place] [address] Care Team Providers Care Kalsominer Name Role Phone Muna Quiroz Primary Care Provider Encounters Date Type Department Care Team Description 09/01/2024 Refill [facility] [address] [place] [address] Hayley Zeng MD from Last 3 Months [...] muscle weakness 05/28/2022 Anemia 05/28/2022 CAD in [place] artery 05/28/2022 Campylobacter diarrhea 05/28/2022 Cardiomyopathy 05/28/2022 [...] of Treatment Not on file Insurance MEDICARE [facility] Care Teams Kalsominer Relationship Specialty Start Date End Date Muna Quiroz PA [address] [place] [address] PCP - General 05/28/22
== END 2024-10-26 09:52 | disposition home or self-care (01) ==
LOC: HO.HOS 09:27
PROVIDERS: PCP Student in an Organized Health Care Education/Training Program; Visit Provider Orthopaedic Surgery
DX: M25.561 Pain in right knee (principal); M17.11 Unilateral primary osteoarthritis, right knee
CPT/HCPCS: 99213; G2211

== ENCOUNTER → 2024-10-26 09:27 | Outpatient (BNVA) | payer MEDICARE, MEDICAID, SELFPAY | PROVIDERS: PCP Student in an Organized Health Care Education/Training Program; Visit Provider Orthopaedic Surgery | DX: M17.11 Unilateral primary osteoarthritis, right knee (principal) | CPT/HCPCS: 99212 ==

== ENCOUNTER 2024-11-15 10:19 | Outpatient (AMB) | payer MEDICARE, MEDICAID, SELFPAY ==
--- NOTE | 2024-11-15 10:22 | MHC.OFFVIS ---
Vital Signs 11/15/24 10:25 Height 6 ft Weight 286 lb BMI 38.8 Intake Visit Reasons: Inj: Right knee Durolane inj Intake Note: Lenin is a 49 year old male who presents today for a right knee Durolane gel injection. He describes his knee pain as sharp in nature. He has had cortisone injections in the past which gave him minimal relief. He has taken Tylenol which gives him only mild relief. He is not able to take anti-inflammatory medicines because he is on Eliquis. Allergies dabigatran etexilate Allergy (Intermediate, Verified 11/15/24 10:24) Cough, throat ulcer lisinopril Allergy (Intermediate, Verified 11/15/24 10:24) Cough Medication List - Last Reconciled 11/15/24 by Ace Schuler MD alfuzosin ER 10 mg PO DAILY amlodipine 5 mg PO DAILY apixaban (Eliquis) 5 mg PO BID [baclofen ] clonazepam 0.25 mg PO DAILY PRN clonazepam 1 mg (2 x 0.5 mg) PO BID 30 days duloxetine 60 mg PO DAILY ezetimibe 10 mg PO DAILY fexofenadine 180 mg PO DAILY finasteride 5 mg PO DAILY furosemide 40 mg PO DAILY galcanezumab-gnlm (Emgality Pen) mg subcut lamotrigine 150 mg PO BID 90 days metoprolol succinate ER 200 mg PO DAILY pantoprazole 40 mg PO BID rosuvastatin 40 mg PO DAILY simvastatin (Zocor) 10 mg PO DAILY tadalafil 5 mg PO DAILY [facility] Medical History (Updated 10/26/24 @ 14:36 by Ace Schuler MD) Wears hearing aid in both ears Presence of intrathecal baclofen pump Elevated cholesterol CAD (coronary artery disease) Cerebral embolism Alcohol dependence in remission Cardiomyopathy DVT (deep venous thrombosis) Muscle spasticity Central pain syndrome HTN (hypertension) Atrial fibrillation Sleep apnea Chronic post-traumatic stress disorder (PTSD) Major depression, recurrent, chronic CVA (cerebral vascular accident) Surgical History Hx of cardiac catheterization H/O colonoscopy History of carpal tunnel release Hx of nasal septoplasty History of back surgery Social History Household Members: None Housing: Apartment Are you a primary foster care social worker to a significant other at home: No Do you presently have visiting nurse or other home services: No 75 years or older and lives alone: No Patient Tobacco Use Status: Former Tobacco user Tobacco use type: Cigarette Substance Use Type: Marijuana Advance Directives Date on File: 07/29/22 Current occupational status: disabled Current occupation: rt hand dominant Physical Exam Vital Signs: BMI result Body Mass Index 38.8 Const Other: Well-nourished well-developed very friendly male awake alert and oriented x3 in no acute distress Extrem Other: Right knee examination shows a minimal effusion, palpable crepitus with range of motion, pain with range of motion, no instability Office Procedures AMB Joint Injection/Aspiration Joint Injection/Aspiration Primary Site: right knee Prep: site was prepped using aseptic technique Injected: 60 mg of (Durolane viscosupplementation) and 1% plain lidocaine Procedure: The patient tolerated the procedure well Coding - Large joint Procedure code (CPT) selection complete Results Reviewed Results Reviewed: X-rays of the patient's right knee taken previously show joint space narrowing, subchondral sclerosis, no acute bony abnormalities Assessment & Plan Assessment & Plan (1) Osteoarthritis of right knee: Code(s): M17.11 - Unilateral primary osteoarthritis, right knee Category: Medical Plan Mr. Hardin presents with right knee pain due to osteoarthritis. The risks and benefits of a right knee Durolane viscosupplementation injection were discussed at length with the patient. The patient wished to proceed. He tolerated the injection well. He will continue with his range of motion exercises. He will contact me prior to his follow-up appointment 3 months should any questions or concerns arise. I spent 21 minutes in reviewing the patient's records and imaging studies, seeing the patient and documenting in the medical record. Orders: Orders AMB Joint Injection/Aspiration Today M17.11 - Unilateral primary osteoarthritis, right knee Coding Level of Care Code Est Pt Level 3 (76711) Complex EM visit Add On G2211 Diagnoses Osteoarthritis of right knee M17.11 CPT Codes Coding - Large joint: 93878 - Large joint ([id number])
[2024-11-15 10:25] VITALS: BMI 38.8
--- OUTSIDE RECORDS SUMMARY | 2024-11-15 10:56 | XMS_ITS | Clinical Summary ---
Author Organization [facility] Address [address] [place] [address] Phone Care Team Providers Care Music Therapy Teacher Name Role Phone Muna Lyle Primary Care [...] AREA TWICE DAILY NEEDED FOR FACIAL RASH 5 Active lamoTRIgine (LaMICtal) 150 mg tablet Take [...] Date Diagnosed Date Right wrist pain 07/05/2024 Surgical History Surgery Date Site/Laterality Comments CARPAL [...] (2 of 2) 2024 02/01/2019 Influenza Vaccine (#1) 2025 , 02/18/2022, 01/14/2021, Additional history exists DTaP,Tdap,and Td [...] Insurance [place] - [place]ARE Care Teams Music Therapy Teacher Relationship Specialty Start Date End Date Muna Lyle PA [address] [place] [id number] PCP - General 07/04/24
--- OUTSIDE RECORDS SUMMARY | 2024-11-15 10:56 | XMS_ITS | Data Portability ---
Author Organization [facility] Address [address] [place] [phone] Care Team Providers Care Wave Solder Offbearer Name Role Phone CATRACHITO VILLANUEVA Primary Care [...] treatment. Time On Scene with Patient: 00:34:37 pedro luis Not available 04/07/2019 15:19:52 Plan of Treatment [...] By Organization Details Last Modified Time 04/07/2019 [id number] Thank you for yo ur visit with [facility] today. You were evaluated for a head injury today. At this time, you do not appear to have evidence of a serious injury such as bleeding. However, your condition can change manager the next 24-48 hours. We recommend that [...] condition between 8am-10pm, please call [facility] at [phone] to help navigate your care. pedro luis Not available 04/07/2019 14:22:21 Reason for Referral None Reported. Problems Name Problem SNOMED Code Status Onset Date Resolution Date Notes Provider Name and Address Organization Details Recorded Time Hypertensive disorder 38283478 Active 2018 SOHAN GAINES NP [address] [place], [address], [place] [facility] 9 13:59:42 Problem Notes None recorded. Medical Equipment None Reported. Allergies Allergen ID Allergen Name Allergen Category Reaction Reaction Severity Criticality Documentation Date Start Date Code Code System Note Provider Name and Address Organization Details Recorded Time 39530 lisinopri l medicatio n Not available Not available Not available 04/07/2019 53159 RxNorm SOHAN GAINES NP [address] [place], [address], [place] [facility] 9 13:54:25 08658 Pradaxa medicatio n Not available Not available Not available 04/07/2019 00533 46 RxNorm SOHAN GAINES NP [address] [place], [address], [place] [facility] 9 [...] in Arterial blood by Pulse oximetry Systolic And Diastolic Provider Name and Address Organization Details Last Updated DateTime 9 75 /min 12 /min 97.5 [degF] 97 % 97 % 112/66 mm[Hg] Not Available [facility] 9 13:58:46 Social History Question Answer Notes LastModified by Organizat ion Details LastModified Time Tobacco Smoking Status Former Smoker SOHAN GAINES, EMBEDDED LINUX DEVELOPER [address] [place], [address], [place] [facility] 04/07/2019 14:01:15 Do You [...] SNOMED-CT Code Diagnosis ICD10 Code Diagnosis Note [id number] SOHAN GAINES NP [facility] [address] [place] [address] 04/07/2019 13:52:52 04/10/2019 13:40:27 Jaw pain 132137791 R68.84 Rib pain 053262411 R07.8 1 Fall on sa me level from slipping, tripping or stumbling 307295096 W01.0XXA Contusion of rib 9565493 06 S20.222A Health Concerns Section Related Observation LastModified by Organization Detai ls LastModified Time None Recorded Concern Status LastModified by Organization Details LastModified Time None Recorded Advance Directives Directive Y: Payers Insurance Date Sequence Insurance Name Policy Number Policy Munguia Covered Member ID Munguia Member ID Guarantor Name 04/07/2019 1 *SELF PAY* Lenin Lashawn [id number] 04/07/2019 2 [place] [facility] Lenin Lashawn [id number] 04/10/2019 1 [place] B[place] [employer] Lenin Haas Lashawn [id number] Notes Date Note Type Note Provider Name [...] causing vomiting. SOHAN GAINES NP [address] [place], [address], [place] [facility] 04/07/2019 15:23:13
--- OUTSIDE RECORDS SUMMARY | 2024-11-15 10:56 | XMS_ITS | Encounter Summary ---
Author Organization [facility] Address [address] [place] [address] Care Team Providers Care Project Manager Interior Design Name Role Phone oBb Benitez MD Primary Care Provider Encounter Details Date Type Department Care Team (Late st Contact Info) Description 03/04/2018 Scanned Document [facility] [address] [place] [phone] Beth Ponce MD Social History Tobacco Use Types Packs/Day Years [...] at Not on file Legal Sex Male 4:21 PM EDT Gender Identity Not on file Sexual Orientation Not on file documented as of this encounter Plan of Treatment Not on file documented as of this encounter Visit Diagnoses Not on filedocumented in this encounter Care Teams Project Manager Interior Design Relationship Specialty Start Date End Date Bob Benitez MD [address] [place] [address] - Attn: [facility] [place], [place] [id number] PCP - General 01/20/18 documented as of this encounter
--- OUTSIDE RECORDS SUMMARY | 2024-11-15 10:56 | XMS_ITS | Referral Summary ---
Author Organization [facility] Address [address] [place] [address] Care Team Providers Care Toy Assembly Supervisor Name Role Phone Muna Quiroz Primary Care Provider [phone] Encounters Date Type Department Care Team Description 09/01/2024 Refill [facility] [address] [place] [phone] Hayley Zeng MD from Last 3 Months [...] muscle weakness 05/28/2022 Anemia 05/28/2022 CAD in [place] artery 05/28/2022 Campylobacter diarrhea 05/28/2022 Cardiomyopathy 05/28/2022 [...] Not on file Insurance MEDICARE [facility] Care Teams Toy Assembly Supervisor Relationship Specialty Start Date End Date Muna Quiroz PA [address] [place] [address] PCP - General 05/28/22
== END 2024-11-15 10:46 | disposition home or self-care (01) ==
LOC: HO.HOS 10:20
PROVIDERS: PCP Student in an Organized Health Care Education/Training Program; Visit Provider Orthopaedic Surgery
DX: M17.11 Unilateral primary osteoarthritis, right knee (principal)
CPT/HCPCS: 20610; 99213

== ENCOUNTER → 2024-11-15 10:19 | Outpatient (BNVA) | payer MEDICARE, MEDICAID, SELFPAY | PROVIDERS: PCP Student in an Organized Health Care Education/Training Program; Visit Provider Orthopaedic Surgery | DX: M17.11 Unilateral primary osteoarthritis, right knee (principal); Z79.01 Long term (current) use of anticoagulants; Z79.899 Other long term (current) drug therapy | CPT/HCPCS: 20610; 99212; J2003; J7318 ==

== ENCOUNTER 2025-01-16 14:37 | Outpatient (AMB) | payer MEDICARE, MEDICAID, SELFPAY ==
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
--- OUTSIDE RECORDS SUMMARY | 2025-01-16 18:18 | XMS_ITS | Clinical Summary ---
Author Organization [facility] Address [address] [place] [address] Care Team Providers Care Supervisor Throwing Department Name Role Phone Bob Benitez MD Primary Care Provider [phone] Allergies Active Allergy Reactions Criticality Noted Date Comments Adhesives/Tape Dermatitis 03/02/2018 Lisinopril Cough Low 03/02/2018 Dabigatran Other (See Comments) 03/02/2018 esophagus ulcer Medications losartan (COZAAR) 25 MG tablet Take 25 [...] severe pain. Active desmopressin (DDAVP) 0.2 MG tabletIndicatio ns:take one to three tab qhs Take 0.2 [...] - 19+ 3-dose series) 1993 Colonoscopy 2019 Pneumococcal Vaccines 50+ (1 of 1 - PCV) 2024 Zoster (Shingles) Vaccine (1 of 2) 2024 Influenza Vaccine 12/01/2024 01/14/2021, , 02/01/2019 COVID-19 Vaccine (4 - 2024- season) 2025 02/25/2021, 07/30/2020, 07/02/2020 Insurance MEDICARE PART A & B [facility] Care Teams Supervisor Throwing Department Relationship Specialty Start Date End Date Bob Benitez MD [address] [place] [address] - Attn: [facility] [place] [address] PCP - General 01/20/18
--- OUTSIDE RECORDS SUMMARY | 2025-01-16 18:18 | XMS_ITS | Clinical Summary ---
Author Organization [facility] Address [address] [place] [address] Care Team Providers Care Formulation Scientist Name Role Phone Muna Quiroz Primary Care Provider [phone] Allergies Active Allergy Reactions Criticality Noted Date [...] muscle weakness 05/28/2022 Anemia 05/28/[address] [place] artery 05/28/2022 Campylobacter diarrhea 05/28/2022 Cardiomyopathy 05/28/2022 [...] 05/28/2022 Vitamin D deficiency 05/28/2022 Hypertension 04/07/2019 Encounters Date Type Department Care Team Description 01/12/2025 CMM Clinical Specialty Pharmacy [facility] [address] [place] [id number] Linda Romero RPh from Last 3 Months Immunizations Immunization Administration Dates Next Due Influenza, [...] of 3 - 19+ 3-dose series) 1993 Alcohol/Substance Use Screening 05/03/2024 Depression Screening and Follow-Up 05/03/2024 Social Drivers of Health Anh ual Screening 05/03/2024 Pneumococcal Vaccine: 50+ Ye ars (1 of 1 - PCV) 2024 Zoster Vaccines (2 of 2) 2024 02/01/2019 COVID-19 Vaccine (6 - 2024-2 6 season) 2025 02/18/2022, 07/24/2021, 02/25/2021, Additional history exists Influenza Vaccine (#1) 2025 2, 02/18/2022, 02/18/2022, Additional history exists DTaP,Tdap,and Td Vaccines (2 - Td or Tdap) 08/13/2032 08/13/2022 RSV Vaccine (60+ years old a nd patients) (1 - 1-dose 75+ series) 2049 Insurance MEDICARE [facility] [address] [address] Care Teams Formulation Scientist Relationship Specialty Start Date End Date Muna Quiroz PA [address] [place] [address] PCP - General 05/28/22
--- OUTSIDE RECORDS SUMMARY | 2025-01-16 18:18 | XMS_ITS | Encounter Summary ---
Author Organization [facility] Address [address] [place] [address] Care Team Providers Care Planning Official Name Role Phone Bob Benitez MD Primary Care Provider [phone] Encounter Details Date Type Department Care Team (Late st Contact Info) Description 07/29/2018 Scanned Document [facility] [address] [place] [phone] Beth Ponce MD Social History Tobacco Use [...] on filedocumented in this encounter Care Teams Planning Official Relationship Specialty Start Date End Date Bob Benitez MD [address] [facility] - Attn: [facility] [place] [address] PCP - General 01/20/18 documented as of this encounter
--- OUTSIDE RECORDS SUMMARY | 2025-01-16 18:18 | XMS_ITS | Encounter Summary ---
Author Organization [facility] Address [address] [place] [address] Care Team Providers Care Rib Matcher And Fitter Name Role Phone Bob Benitez MD Primary Care Provider [phone] Encounter Details Date Type Department Care Team (Late st Contact Info) Description 03/04/2018 Scanned Document [facility] [address] [place] [phone] Beth Ponce MD Social History Tobacco Use [...] on filedocumented in this encounter Care Teams Rib Matcher And Fitter Relationship Specialty Start Date End Date Bob Benitez MD [address] [place] [address] - Attn: [facility] [place], [place] [phone] PCP - General 01/20/18 documented as of this encounter
--- OUTSIDE RECORDS SUMMARY | 2025-01-16 18:18 | XMS_ITS | Encounter Summary ---
Author Organization [facility] Address [address] [place] [address] Care Team Providers Care Printed Circuit Board Panels Trimmer Name Role Phone Muna Quiroz Primary Care Provider [phone] Reason for Visit * Reason Onset Date Comments Medication Follow Up Assessment 01/12/2025 Encounter Details Date Type Department Care Team (Late st Contact Info) Description 01/12/2025 CM Clinical Specialty Pharmacy [facility] [address] [place] [address] [phone] Linda Romero RPh Social History Tobacco Use Types Packs/Day Years Used Date Smoking Tobacco: Never Smokeless Tobacco: Never Sex and Gender Information Value Date Recorded Sex Assigned at Male 03/05/2022 8:54 AM EDT Legal Sex Male 1:00 PM EDT Gender Identity Male 03/05/2022 8:54 AM EDT Sexual Orientation Straight 03/05/2022 8: 54 AM EDT documented as of this encounter Miscellaneous Notes * Telephone Encounter - Linda Romero RPh - 01/12/2025 10:48 AM EDT Medication Follow Up Assessment 01/12/2025 Diagnosis: Neurology - Migraine Treatment review: galcanezumab-gnlm (Emgality Pen) 120 mg/mL pen injector Inject 1 mL (120 mg total) every 30 days. [facility] filled medication reviewed: Emgality Administration: Inject 120mg under the skin every 4 week(s) Adherence and Potential Barriers: how many reported missed doses in the past month Patient has stopped taking medication, last dose was November 30 Missed dose management: Not clinically relevant Current Side Effects: Patient is not currently taking medication, previously tolerated well Mitigation/management: Not Clinically Relevant List Changes to Allergies, Diagnoses: No Changes Allergies and No Changes Diagnoses Current S/Sx: Denies migraines, no changes since stopping medication. Cannot recall how many monthly migraines before stopping medication In the last 4 weeks, has the patient missed any days of work, school, or planned activities due to their condition? If>5 days/ activities may enter >5 No Since the last clinical assessment, has the patient had any unplanned medical visits due to their condition? If an unplanned ER visit results in a hospitalization, please document as a hospitalization. If>5 events may enter >5 No Disease state outcomes: How many migraine days (past month)? 0 Pain severity (past month): n/a Avg duration of migraine (past month): Unable to recall Clinically Relevant, Abnormal Labs: Migraines: CBC: No results found for: WBC , RBC , HGB , HCT , MCV , MCH , MCHC , RDW , PLT , MPV Chem7: No results found for: BUN , CO2 , CREATININE , GLU , NA , K , CL LFTs: No results found for: ALT , AST , LDH , HAPTOGLOBIN , TRIG , BILITOT , LABHEMOF BP/HR: BP Readings from Last 1 Encounters: 08/19/22 113/78 Pulse Readings from Last 1 Encounters: 08/19/22 67 Wellness/Lifestyle Counseling: defer Support/QOL: No hospitalizations or ER visits Immunizations: Patient states he has not received vaccinations in the last year Recent Communicable infections: No communicable infections Medication Rec/Updated Drug list: Medications Medication Sig Updated Home Medications baclofen (2,000 mcg/mL) 80,000 mcg by intrathecal route once. clonazePAM (KlonoPIN) 1 mg tablet SMARTSI Milligram(s) By Mouth Twice Daily Eliquis 5 mg tablet Take 5 mg by mouth. ezetimibe (ZETIA) 10 mg tablet Take 10 mg by mouth once a day. fexofenadine (RADHA) 180 mg tablet Take 180 mg by mouth once a day. galcanezumab-gnlm (Emgality Pen) 120 mg/mL pen injector Inject 1 mL (120 mg total) every 30 days. magnesium gluconate (MAGONATE) 27 mg magnesium (500 mg) tablet Take 500 mg by mouth once a day. ondansetron (ZOFRAN ODT) 4 mg disintegrating tablet Dissolve 1 tablet (4 mg total) in the mouth as needed for nausea or vomiting for up to [address] (PROTONIX) 40 mg tablet Take 40 mg by mouth 2 times a day. QUEtiapine (SEROquel) 100 mg tablet Take 100 mg by mouth nightly. QUEtiapine (SEROquel) 25 mg tablet TAKE 1 TABLET BY MOUTH TWICE DAILY DIRECTED. MAY TAKE ADDITIONAL TABLET DAILY NEEDED FOR ANXIETY AGITATION CAUTION FOR SEDATION AND DIZZINESS rimegepant ODT 75 mg (Nurtec ODT) 75 mg tablet,disintegrating disintegrating tablet Dissolve 1 tablet (75 mg total) in the mouth as needed (for abortive therapy for migraine) for up to 10 doses Indications: a migraine headache, requires abortive medication, contraindications to NSAIDS and triptans.Do not take more than 3 days in a given week rosuvastatin (CRESTOR) 40 mg tablet Take 40 mg by mouth once a day. tiZANidine (ZANAFLEX) 4 mg tablet Take 4 mg by mouth every 3 hours as needed. EMR inaccurate, medication changes reviewed with patient/caregiver: (-) tizanidine, seroquel (+) Drug Interaction Check: No major drug interactions identified Goals of Therapy: Reduce migraine frequency, duration, and/or severity Patient has agreed/understands to goals of therapy during education/counseling Additional: Had pleasant conversation with Migue. Migue is currently holding medication to see if it makes a difference without medication. Cannot recall the amount of migraines before stopping medication, no changes since stopping. Pt was appreciative for the call and welcomes future check-ins with the clinical team. Medication Held Date medication placed on hold: 11/30/2024 Treatment: n/a Reason: Pt wants to see if he can go without medication -Grade Level (if applicable): n/a Prepared by: Linda Romero RPh Clinical Pharmacist [facility] documented in this encounter Plan of Treatment Not on file documented as of this encounter Visit Diagnoses Not on filedocumented in this encounter Care Teams Printed Circuit Board Panels Trimmer Relationship Specialty Start Date End Date Muna Quiroz PA [address] [place] [address] PCP - General 05/28/22 documented as of this encounter
--- OUTSIDE RECORDS SUMMARY | 2025-01-16 18:18 | XMS_ITS | Encounter Summary ---
Author Organization [facility] Address [address] [place] [address] Care Team Providers Care Director Of Intercollegiate Athletics Name Role Phone Muna Quiroz Primary Care Provider [phone] Reason for Visit * Reason Onset Date Comments ? lab test 06/19/2022 Encounter Details Date Type Department Care Team (Late st Contact Info) Description 06/19/2022 Telephone [facility] [address] [place] [address] [phone] Telephone Intake, Staff ? lab test Social [...] Tel: Provider: Dr Yocasta Travis call from [facility] - Concerning test listed below, they cannot run this tesst and was wondering if there was another test to replace, [facility] lab is aware that a message was gen[place] sent to question. Pt is scheduled for follow up 08/04/2022, please advise, ty Autoimmune Neurology Antibody Comprehensive Panel w/ Reflex, Serum (Order [id number]) documented in this encounter Plan of Treatment Not on file documented as of this encounter Visit Diagnoses Not on filedocumented in this encounter Care Teams Director Of Intercollegiate Athletics Relationship Specialty Start Date End Date Muna Quiroz PA [address] [place], [place] [address] PCP - General 05/28/22 documented as of this encounter
== END 2025-01-16 16:53 | disposition home or self-care (01) ==
LOC: HO.HOP 14:37
PROVIDERS: PCP Student in an Organized Health Care Education/Training Program; Visit Provider Psychiatry & Neurology Psychiatry
DX: F43.12 Post-traumatic stress disorder, chronic (principal)
CPT/HCPCS: 99214

== ENCOUNTER → 2025-01-16 14:37 | Outpatient (BNVA) | payer MEDICARE, MEDICAID, SELFPAY | PROVIDERS: PCP Student in an Organized Health Care Education/Training Program; Visit Provider Psychiatry & Neurology Psychiatry | DX: F43.12 Post-traumatic stress disorder, chronic (principal) | CPT/HCPCS: 99212 ==

== ENCOUNTER 2025-02-15 10:04 | Outpatient (AMB) | payer MEDICARE, MEDICAID, SELFPAY ==
[2025-02-15 10:11] VITALS: BMI 38.8
--- NOTE | 2025-02-15 10:11 | A.OFFVIS_ITS ---
Vital Signs 02/15/25 10:11 Height 6 ft Weight 286 lb BMI 38.8 Intake Visit Reasons: right knee OA/RT knee Durolane inj last 11/15/24 Intake Note: Lenin is a 49 year old man who presents with complaints of mild intermittent discomfort in his right knee after undergoing a right knee Durolane injection on 11/15/2024. The patient states that he has not been very active over the last few weeks because of a left lower extremity deep vein thrombosis. He is currently on Lovenox injections. He denies any shortness of breath or chest pain. He states that at this point his right knee pain is tolerable to him. Allergies dabigatran etexilate Allergy (Intermediate, Verified 02/15/25 10:17) Cough, throat ulcer lisinopril Allergy (Intermediate, Verified 02/15/25 10:17) Cough Medication List - Last Reconciled 02/15/25 by Ace Schuler MD alfuzosin ER 10 mg PO DAILY amlodipine 5 mg PO DAILY [baclofen ] clonazepam 0.25 mg PO DAILY PRN clonazepam 1 mg (2 x 0.5 mg) PO BID 30 days doxycycline hyclate 100 mg PO BID duloxetine 60 mg PO DAILY ezetimibe 10 mg PO DAILY fexofenadine 180 mg PO DAILY finasteride 5 mg PO DAILY furosemide 60 mg PO DAILY furosemide 40 mg PO DAILY galcanezumab-gnlm (Emgality Pen) mg subcut lamotrigine 150 mg PO BID 90 days metoprolol succinate ER 200 mg PO DAILY pantoprazole 40 mg PO BID rosuvastatin 40 mg PO DAILY simvastatin (Zocor) 10 mg PO DAILY tadalafil 5 mg PO DAILY trazodone 50 - 100 mg (0.5 - 1 x 100 mg) PO BEDTIME PRN 30 days [facility] Medical History (Updated 10/26/24 @ 14:36 by Ace Schuler MD) Wears hearing aid in both ears Presence of intrathecal baclofen pump Elevated cholesterol CAD (coronary artery disease) Cerebral embolism Alcohol dependence in remission Cardiomyopathy DVT (deep venous thrombosis) Muscle spasticity Central pain syndrome HTN (hypertension) Atrial fibrillation Sleep apnea Chronic post-traumatic stress disorder (PTSD) Major depression, recurrent, chronic CVA (cerebral vascular accident) Surgical History Hx of cardiac catheterization H/O colonoscopy History of carpal tunnel release Hx of nasal septoplasty History of back surgery Social History Household Members: None Housing: Apartment Are you a primary care services manager to a significant other at home: No Do you presently have visiting nurse or other home services: No 75 years or older and lives alone: No Patient Tobacco Use Status: Former Tobacco user Tobacco use type: Cigarette Substance Use Type: Marijuana Advance Directives Date on File: 07/29/22 Current occupational status: disabled Current occupation: rt hand dominant Physical Exam Vital Signs: BMI result Body Mass Index 38.8 Extrem Other: Right knee examination shows a minimal effusion, palpable crepitus with range of motion, pain, no instability Assessment & Plan Assessment & Plan (1) Osteoarthritis of right knee: Code(s): M17.11 - Unilateral primary osteoarthritis, right knee Category: Medical Plan Migue presents with intermittent right knee pain due to degenerative joint disease. I had a lengthy discussion with the patient regarding the treatment options. At this point the patient's symptoms are tolerable to him. We will hold off on a cortisone injection. He will contact me prior to his follow-up appointment in 2-3 months should his symptoms worsen in any way. I spent 22 minutes in reviewing the patient's records and imaging studies, seeing the patient and documenting in the medical record. Coding Level of Care Code Est Pt Level 3 (49858) Complex EM visit Add On G2211 Diagnoses Osteoarthritis of right knee M17.11
--- OUTSIDE RECORDS SUMMARY | 2025-02-15 12:03 | XMS_ITS | Encounter Summary ---
Author Organization [facility] Address [address] [place] [address] Care Team Providers Care Mill Stenciler Name Role Phone Bob Benitez MD Primary Care Provider [phone] Encounter Details Date Type Department Care Team (Late st Contact Info) Description 03/04/2018 Scanned Document [facility] [address] [place] [phone] Beth Ponce MD Social History Tobacco Use [...] on filedocumented in this encounter Care Teams Mill Stenciler Relationship Specialty Start Date End Date Bob Benitez MD [address] [place] [address] - Attn: [facility] [place], [place] [phone] PCP - General 01/20/18 documented as of this encounter
--- OUTSIDE RECORDS SUMMARY | 2025-02-15 12:03 | XMS_ITS | Clinical Summary ---
Author Organization [facility] Address [address] [place] [address] Phone Care Team Providers Care Unloader Name Role Phone Muna Lyle Primary Care [...] Health Maintenance Due Date Last Done Comments Colorectal Cancer Screening: Colonoscopy 1974 Hepatitis B Vaccines (1 of 3 - 19+ 3-dose series) 1993 Cholesterol Screening (Lipid Panel) 04/04/2022 HIV Screening 04/04/2022 Hepatitis C Screening 04/04/2022 Medicare Annual Wellness Visit 04/04/2022 Social Influencers of Health Screening 04/04/2022 Hypertension/CHF/CAD Annual BMP Blood Test 03/04/2024 Depression Screening 05/03/2024 Pneumococcal Vaccine: 50+ Years (1 of 1 - PCV) 2024 Zoster Vaccines (2 of 2) 2024 02/01/2019 COVID-19 Vaccine ( - season) 2025 02/16/2023, 02/18/2022, 07/24/2021, Additional history exists Influenza Vaccine (#1) 2025 , 02/18/2022, 01/14/2021, Additional history exists DTaP,Tdap,and Td Vaccines (2 - Td or Tdap) 08/13/2032 08/13/2022 RSV Immunization Adult Patients (1 - 1-dose 75+ series) 2049 HIB Vaccines Aged Out No longer eligi [...] Insurance MEDICAID - [place] MEDICARE Care Teams Unloader Relationship Specialty Start Date End Date Muna Lyle PA [address] [place] [phone] PCP - General 07/04/24
--- OUTSIDE RECORDS SUMMARY | 2025-02-15 12:03 | XMS_ITS | Data Portability ---
Author Organization [place] - [facility] Address [address] [place] [address] Care Team Providers Care Manager Of Information Name Role Phone CATRACHITO VILLANUEVA Primary Care [...] By Organization Details Last Modified Time 04/07/2019 [id number] Thank you for yo ur visit with [facility] today. You were evaluated for a head injury today. At this time, you do not appear to have evidence of a serious injury such as bleeding. However, your condition can mold changer the next 24-48 hours. We recommend [...] condition between 8am-10pm, please call [facility] at [phone] to help navigate your care. pedro luis Not available 04/07/2019 14:22:21 Reason for Referral None Reported. Problems Name Problem SNOMED Code Status Onset Date Resolution Date Notes Provider Name and Address Organization Details Recorded Time Hypertensive disorder 34690015 Active 2018 SOHAN GAINES NP [address] [place], [address], [place] [facility] 9 13:59:42 Problem Notes None recorded. Medical Equipment None Reported. Allergies Allergen ID Allergen Name Allergen Category Reaction Reaction Severity Criticality Documentation Date Start Date Code Code System Note Provider Name and Address Organization Details Recorded Time 99702 lisinopri l medicatio n Not available Not available Not available 04/07/2019 72858 RxNorm SOHAN GAINES NP [address] [place], [address], [place] [facility] 9 13:54:25 50299 Pradaxa medicatio n Not available Not available Not available 04/07/2019 27405 46 RxNorm SOHAN GAINES NP [address] [place], [address], [place] [facility] 9 [...] Tobacco Smoking Status Former Smoker SOHAN GAINES, CLIENT ONBOARDING ANALYST [address] [place], [address], [place] - [facility] 04/07/2019 14:01:15 Do You [...] Diagnosis SNOMED-CT Code Diagnosis ICD10 Code Diagnosis IMO Codes Diagnosis Note [id number] SOHAN GAINES NP [facility] [address] [place] [address] 04/07/2019 13:52:52 04/10/2019 13:40:27 Jaw pain 670696408 R68.84 Rib pain 982803662 R07.8 1 Fall on sa me level from slipping, tripping or stumbling 864189653 W01.0XXA Contusion of rib 8012126 06 S20.222A Health Concerns Section Related Observation LastModified by Organization Detai ls LastModified Time None Recorded Concern Status LastModified by Organization Details LastModified Time None Recorded Advance Directives Directive Y: Payers Insurance Date Sequence Insurance Name Policy Number Policy Munguia Covered Member ID Munguia Member ID Guarantor Name 04/07/2019 1 *SELF PAY* Lenin Lashawn [id number] 04/07/2019 2 [place] [facility] Lenin Lashawn [id number] 04/10/2019 1 MEDIC[place] B[place] [employer] Lenin Camachodavide [id number] Notes Date Note Type Note Provider Name [...] vomiting. SOHAN GAINES NP [address], [place], [address], [place] - [facility] 04/07/2019 15:23:13
--- OUTSIDE RECORDS SUMMARY | 2025-02-15 12:03 | XMS_ITS | Data Portability ---
Author Organization [place] - [facility], Allergy Address [address] [address] Assessment Encounter Date Assessment Date Assessment LastModified by Organization Details LastModified Time 11/30/2024 11/30/2024 Follow up with referring provider. nurcuioli Not available 11/30/2024 10:38:15 Plan of Treatment Reminders Order Date Submit Date Provider Last Modified By Organization Details Last Modified Time Details Appointments None record ed. Lab None record ed. Referral None record ed. Procedures None record ed. Surgeries None record ed. Imaging None record ed. Medication Orders None record ed. Patient TargetsNo targets recorded. Patient InstructionsNo instructions recorded. Reason for Referral None Reported. Results Created Date Observation Date Name Description Value Unit Range Abnormal Flag Note LastModifiedBy Organization Detail LastModifiedTime 12/01/19 25 audio gram No observ ation record ed. BARCODE Not Available 2024 13:36:47 Result Notes None recorded. 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 Procedures Surgical History Date Name Laterality Status Provider Name and Address Organization Details Recorded Time 11/30/2024 Air & Speech Audio with Tymps - 51654, 99240 & 92063 completed JOAN GAYLE MA, CCC-A [address] [facility],[place] [address], [place], [address], [facility] 11/30/2024 10:38:15 Imaging Results None recorded. Procedure Notes None recorded. Medical Equipment None Reported. Allergies Allergen ID Allergen Name Allergen Category Reaction Reaction Severity Criticality Documentation Date Start Date Code Code System Note Provider Name and Address Organization Details Recorded Time 069080 lisinopri l medicatio n other Not available Not available 09/14/2023 89196 RxNorm React ion: unkno wn, unspe cifie d;; Not Available [facility] 4 01:11:03 Medications Name Sig Start Date Stop Date Status Note LastModified by Organization Details LastModified Time celecoxib 200 mg capsule 11/29 completed Medicati on ID: [id number] D uration Value: 90 Brand Name: celecoxi b Send Method: E-Prescr ibed Sub s Allowed: subs OK Speci al Instruct ion: TAKE ONE CAPSULE BY MOUTH TWICE A DAY Medi cationGe nericNam e: celecoxi b Not Available Not Available Not Available furosemid e 40 mg tablet TAKE 1 TABLET BY MOUTH DAILY active Not Available Not Available No t Available lamotrigi ne 150 mg tablet TAKE 1 TABLET BY MOUTH TWICE DAILY active Not Available Not Available No t Available fentanyl 50 mcg/hr transderm al patch 11/29 completed Medicati on ID: [id number] D uration Value: 30 Brand Name: fentanyl Send Method: E-Prescr ibed Sub s Allowed: subs OK Speci al Instruct ion: APPLY 1 PATCH EVERY 3 DAYS Med icationG enericNa me: fentanyl Not Available Not Available Not Available gabapenti n 600 mg tablet 11/29 completed Medicati on ID: [id number] D uration Value: 90 Brand Name: gabapent in Send Method: E-Prescr ibed Sub s Allowed: subs OK Speci al Instruct ion: TAKE 1 TABLET BY MOUTH TWICE A DAY Medi cationGe nericNam e: gabapent in Not Available Not Available Not Available tizanidin e 2 mg tablet TAKE 3 TABLETS BY MOUTH TWICE DAILY active Not Available Not Available No t Available trazodone 50 mg tablet 11/29 completed Medicati on ID: [id number] D uration Value: 30 Brand Name: trazodon e Send Method: E-Prescr ibed Sub s Allowed: subs OK Medic ationGen ericName : trazodon e Not Available Not Available Not Available tizanidin e 4 mg tablet TAKE 1 TABLET BY MOUTH THREE TIMES DAILY NEEDED FOR SPASM 1/2 - 1 TABLET 3 TIMES DAILY NEEDED 11/29 completed Not Available Not Available Not Available hydrocodo ne 5 mg-acetam inophen 325 mg tablet 11/29 completed Medicati on ID: [id number] D uration Value: 10 Brand Name: hydrocod one-acet aminophe n Send Method: E-Prescr ibed Sub s Allowed: subs OK Medic ationGen ericName : hydrocod one-acet aminophe n Not Available Not Available Not Available metoprolo l succinate ER 200 mg tablet,ex tended release 24 hr 200 mg every day by oral route. 2024 active Not Available Not Available Not Avai lable clonazepa m 0.5 mg tablet TAKE 2 TABLETS BY MOUTH TWICE DAILY 11/29 completed Not Available Not Available Not Available dantrolen e 50 mg capsule 11/29 completed Medicati on ID: [id number] D uration Value: 30 Brand Name: dantrole ne Send Method: E-Prescr ibed Sub s Allowed: subs OK Speci al Instruct ion: TAKE 1 CAPSULE AT BEDTIME X 3 DAYS, THEN TAKE 1 CAPSULE 2 TIMES DAILY Me dication GenericN kermit: dantrole ne Not Available Not Available Not Available desmopres sin 0.2 mg tablet 11/29 completed Medicati on ID: [id number] D uration Value: 30 Brand Name: desmopre ssin Sen d Method: E-Prescr ibed Sub s Allowed: subs OK Speci al Instruct ion: TAKE 3 TABLET AT BEDTIME WITH FLUID RESTRICT FOR 3 HOURS PRE BED Medi cationGe nericNam e: desmopre ssin Not Available Not Available Not Available gabapenti n 400 mg capsule 11/29 completed Medicati on ID: [id number] D uration Value: 90 Brand Name: gabapent in Send Method: E-Prescr ibed Sub s Allowed: subs OK Medic ationGen ericName : gabapent in Not Available Not Available Not Available clonazepa m 1 mg tablet 11/29 completed Medicati on ID: [id number] D uration Value: 30 Brand Name: clonazep am Send Method: E-Prescr ibed Sub s Allowed: subs OK Speci al Instruct ion: TAKE 1/2 TO 1 TABLET BY MOUTH TWICE A DAY Medi cationGe nericNam e: clonazep am Not Available Not Available Not Available clobetaso l 0.05 % topical cream APPLY TO RASH ON LEFT AND RIGHT LEG TWICE DAILY. NOT TO EXCEED 2 WEEKS active Not Available Not Available No t Available amlodipin e 5 mg tablet TAKE 1 TABLET BY MOUTH DAILY active Not Available Not Available No t Available doxepin 10 mg capsule TAKE 1 CAPSULE BY MOUTH AT BEDTIME NEEDED FOR INSOMNIA 11/29 completed Not Available Not Available Not Available morphine ER 30 mg tablet,ex tended release TAKE 1 TABLET BY MOUTH TWICE DAILY. MAY FILL FEWER 11/29 completed Not Available Not Available Not Available sulfameth oxazole 800 mg-trimet hoprim 160 mg tablet 11/29 completed Medicati on ID: [id number] D uration Value: 7 Brand Name: sulfamet hoxazole -trimeth oprim Se nd Method: E-Prescr ibed Sub s Allowed: subs OK Medic ationGen ericName : sulfamet hoxazole -trimeth oprim Not Available Not Available Not Available hydrocodo ne 10 mg-acetam inophen 325 mg tablet 11/29 completed Medicati on ID: [id number] D uration Value: 10 Brand Name: hydrocod one-acet aminophe n Send Method: E-Prescr ibed Sub s Allowed: subs OK Medic ationGen ericName : hydrocod one-acet aminophe n Not Available Not Available Not Available fenofibra te micronize d 200 mg capsule 11/29 completed Medicati on ID: [id number] D uration Value: 90 Brand Name: fenofibr ate microniz ed Send Method: E-Prescr ibed Sub s Allowed: subs OK Medic ationGen ericName : fenofibr ate microniz ed Not Available Not Available Not Available triamcino lone acetonide 0.1 % topical cream APPLY TO ITCHY SCAR ON BELLY TWICE DAILY NEEDED. NOT TO EXCEED 2 WEEKS AT A TIME active Not Available Not Available No t Available baclofen 20 mg tablet 11/29 completed Medicati on ID: [id number] D uration Value: 90 Brand Name: baclofen Send Method: E-Prescr ibed Sub s Allowed: subs OK Speci al Instruct ion: TAKE 1 TABLET BY MOUTH FOUR TIMES A DAY Medi cationGe nericNam e: baclofen Not Available Not Available Not Available ofloxacin 0.3 % ear drops INSTILL 5 DROPS IN BOTH EARS TWICE DAILY 11/29 completed Not Available Not Available Not Available citalopra m 20 mg tablet 11/29 completed Medicati on ID: [id number] D uration Value: 90 Brand Name: citalopr am Send Method: E-Prescr ibed Sub s Allowed: subs OK Speci al Instruct ion: TAKE 1 TABLET TWICE A DAY Medi cationGe nericNam e: citalopr am Not Available Not Available Not Available amitripty line 25 mg tablet 11/29 completed Medicati on ID: [id number] D uration Value: 30 Brand Name: amitript yline Se nd Method: E-Prescr ibed Sub s Allowed: subs OK Medic ationGen ericName : amitript yline Not Available Not Available Not Available pantopraz ole 40 mg tablet,de layed release TAKE 1 TABLET BY MOUTH TWICE DAILY active Not Available Not Available No t Available buspirone 10 mg tablet 11/29 completed Medicati on ID: [id number] D uration Value: 90 Brand Name: buspiron e Send Method: E-Prescr ibed Sub s Allowed: subs OK Speci al Instruct ion: TAKE 1 TABLET BY MOUTH 3 TIMES A DAY Medi cationGe nericNam e: buspiron e Not Available Not Available Not Available warfarin 5 mg tablet 11/29 completed Medicati on ID: [id number] D uration Value: 10 Brand Name: warfarin Send Method: E-Prescr ibed Sub s Allowed: subs OK Medic ationGen ericName : warfarin Not Available Not Available Not Available cabergoli ne 0.5 mg tablet 11/29 completed Medicati on ID: [id number] D uration Value: 90 Brand Name: cabergol ine Send Method: E-Prescr ibed Sub s Allowed: subs OK Medic ationGen ericName : cabergol ine Not Available Not Available Not Available losartan 25 mg tablet 2019 active Medicati on ID: [id number] D uration Value: 90 Brand Name: losartan Send Method: E-Prescr ibed Sub s Allowed: subs OK Medic ationGen ericName : losartan Not Available Not Available Not Available Ear Drops (carbamid e peroxide) 6.5 % PLACE 4 DROPS INTOI RIGHT EAR TWICE DAILY DIRECTED 11/29 completed Not Available Not Available Not Available morphine ER 15 mg tablet,ex tended release TAKE 1 TABLET BY MOUTH TWICE DAILY. MAY FILL FEWER 11/29 completed Not Available Not Available Not Available furosemid e 20 mg tablet TAKE 3 TABLETS BY MOUTH DAILY active Not Available Not Available No t Available oxycodone 30 mg tablet TAKE 1 TABLET BY MOUTH THREE TIMES DAILY NEEDED FOR SEVERE PAIN active Not Available Not Available No t Available zolpidem 10 mg tablet 11/29 completed Medicati on ID: [id number] D uration Value: 30 Brand Name: zolpidem Send Method: E-Prescr ibed Sub s Allowed: subs OK Medic ationGen ericName : zolpidem Not Available Not Available Not Available methylpre dnisolone 4 mg tablets in a dose pack FOLLOW PACKAGE DIRECTIO NS 11/29 completed Not Available Not Available Not Available ketoconaz ole 2 % topical cream APPLY TOPICALL Y TO THE AFFECTED AREA TWICE DAILY NEEDED FOR FACIAL RASH active Not Available Not Available No t Available doxycycli ne hyclate 100 mg tablet 11/29 completed Medicati on ID: [id number] D uration Value: 21 Brand Name: doxycycl ine hyclate Send Method: E-Prescr ibed Sub s Allowed: subs OK Medic ationGen ericName : doxycycl ine hyclate Not Available Not Available Not Available finasteri de 5 mg tablet TAKE 1 TABLET BY MOUTH EVERY DAY active Not Available Not Available No t Available amoxicill in 875 mg-potass ium clavulana te 125 mg tablet TAKE 1 TABLET BY MOUTH EVERY 12 HOURS FOR 10 DAYS 11/29 completed Not Available Not Available Not Available buspirone 15 mg tablet 11/29 completed Medicati on ID: [id number] D uration Value: 90 Brand Name: buspiron e Send Method: E-Prescr ibed Sub s Allowed: subs OK Speci al Instruct ion: TAKE 1 TABLET BY MOUTH THREE TIMES A DAY Medi cationGe nericNam e: buspiron e Not Available Not Available Not Available oxycodone 5 mg tablet TAKE 2 TABLETS BY MOUTH EVERY 6 HOURS NEEDED FOR PAIN 11/29 completed Not Available Not Available Not Available enoxapari n 80 mg/0.8 mL subcutane ous syringe 11/29 completed Medicati on ID: [id number] D uration Value: 90 Brand Name: enoxapar in Send Method: E-Prescr ibed Sub s Allowed: subs OK Medic ationGen ericName : enoxapar in Not Available Not Available Not Available enoxapari n 100 mg/mL subcutane ous syringe 11/29 completed Medicati on ID: [id number] D uration Value: 90 Brand Name: enoxapar in Send Method: E-Prescr ibed Sub s Allowed: subs OK Medic ationGen ericName : enoxapar in Not Available Not Available Not Available enoxapari n 120 mg/0.8 mL subcutane ous syringe 2019 active Medicati on ID: [id number] D uration Value: 7 Brand Name: enoxapar in Send Method: E-Prescr ibed Sub s Allowed: subs OK Medic ationGen ericName : enoxapar in Not Available Not Available Not Available ezetimibe 10 mg tablet TAKE 1 TABLET BY MOUTH DAILY active Not Available Not Available No t Available clonazepa m 0.25 mg disintegr ating tablet DISSOLVE 1 TABLET ON THE TONGUE DAILY 11/29 completed Not Available Not Available Not Available rosuvasta tin 40 mg tablet TAKE 1 TABLET BY MOUTH DAILY active Not Available Not Available No t Available alfuzosin ER 10 mg tablet,ex tended release 24 hr TAKE 1 TABLET BY MOUTH AT BEDTIME 11/29 completed Not Available Not Available Not Available tadalafil 5 mg tablet TAKE 1 TABLET BY MOUTH EVERY DAY active Not Available Not Available No t Available metoprolo l tartrate 25 mg tablet 11/29 completed Medicati on ID: [id number] D uration Value: 90 Brand Name: metoprol ol tartrate Send Method: E-Prescr ibed Sub s Allowed: subs OK Speci al Instruct ion: TAKE 1 TABLET TWICE A DAY Medi cationGe nericNam e: metoprol ol tartrate Not Available Not Available Not Available duloxetin e 30 mg capsule,d elayed release 11/29 completed Medicati on ID: [id number] D uration Value: 90 Brand Name: duloxeti ne Send Method: E-Prescr ibed Sub s Allowed: subs OK Medic ationGen ericName : duloxeti ne Not Available Not Available Not Available duloxetin e 60 mg capsule,d elayed release TAKE 1 CAPSULE BY MOUTH DAILY active Not Available Not Available No t Available oxycodone 10 mg tablet TAKE 1 TABLET BY MOUTH EVERY 6 HOURS NEEDED FOR SEVERE PAIN. MAY FILL FEWER 11/29 completed Not Available Not Available Not Available diclofena c 1 % topical gel 11/29 completed Medicati on ID: [id number] D uration Value: 30 Brand Name: diclofen ac sodium S end Method: E-Prescr ibed Sub s Allowed: subs OK Medic ationGen ericName : diclofen ac sodium Not Available Not Available Not Available azelastin e 205.5 mcg (0.15 %) nasal spray 11/29 completed Medicati on ID: [id number] D uration Value: 90 Brand Name: kam willson Send Method: E-Prescr ibed Sub s Allowed: subs OK Medic Adan ericName : kam willson Not Available Not Available Not Available Xarelto 20 mg tablet 11/29 completed Medicati on ID: [id number] D uration Value: 90 Brand Name: Xarelto Send Method: E-Prescr ibed Sub s Allowed: subs OK Speci al Instruct ion: TAKE 1 TABLET BY MOUTH DAILY BEFORE DINNER M rubio nGeneric Name: Xarelto Not Available Not Available Not Available Eliquis 5 mg tablet TAKE 1 TABLET BY MOUTH TWICE DAILY DIRECTED ON PACKAGE active Not Available Not Available No t Available Narcan 4 mg/actuat ion nasal spray CALL 911. SPR CONTENTS OF ONE SPRAYER (0.1ML) INTO ONE NOSTRIL. REPEAT IN 2-3 MIN IF SYMPTOMS OF OPIOID EMERGENC Y PERSIST, ALTERNAT E NOSTRILS 11/29 completed Not Available Not Available Not Available Vitals None Recorded Social History Question Answer Notes LastModified by Organization D etails LastModified Time What Type Of Supervisory Aide Do You Use? None Information not available 11/30/2024 Do You Have Any Pets? Yes Information not available 11/30/2024 Are You Passively Exposed To Smoke? No Information no t available 11/30/2024 Are There Any Smokers In Your House? No Information not available 11/30/2024 Sex: Unknown Functional Status Question Answer Note LastModified by Organization Details LastModified Time Do you use any illicit or recreational drugs? No Information not available 11/30/2024 What type of noise exposure are you exposed to? noExposureToExcessiveNoise Infor mation not available 11/30/2024 Mental Status None recorded. Family History Nothing Reported. Medical History Condition Response Allergies/Hayfever Y Heart Problems Y Anxiety Y Tonsil Infections N Emphysema N Migraines Y Thyroid Problems N Depression Y COPD N Developmental Delay N Glaucoma N Nasal or Sinus Problems N Anemia N Immune System Disorder N Anesthesia Complications N Heart Attack ([place]) N Other Skin Condition N Diabetes N Rhinitis N Bleeding Disorder N Food Allergy N Hearing Loss Y Arthritis Y Hyperlipidemia N Cancer N Stroke Y Dementia N Nasal polyps N Asthma N Sleep Disorder Y High Cholesterol Y GERD/Reflux N Liver Disease N Headaches Y Fibromyalgia N Hypertension Y Speech Delay N Kidney Disease N Past Encounters Encounter ID Performer Location Encounter Start Date Encounter Closed Date Diagnosis/Indication Diagnosis SNOMED-CT Code Diagnosis ICD10 Code Diagnosis IMO Codes Diagnosis Note [id number] AMY ROCKWELL MD [facility] [address] [address] 11/30/2024 09:53:12 11/30/2024 12:21:16 History of perforated tympanic membrane [id number] 39990 Z86.69 [id number] Your exam today was normal. I gave reassuranc e that there is no perforatio n and so he likely had a perforatio n which has healed. Audiogram today demonstrat es that his hearing is at his baseline similar to audiogram done about 5 years ago. I gave reassuranc e. Sensorineu ral hearing loss of bilateral ears 619039363 H90.3 133400 see above [id number] JOAN GAYLE MA, CCC-A [facility] [address] [address] 11/30/2024 09:55:28 11/30/2024 10:59:25 Bilateral tinnitus 0000293097 102 H93.13 Audiologic al evaluation results: Right & Left ears: Mild to moderate SNHL with excellent word recognitio n. Tympanomet ry: Right Ear:Type Ad ( Compliance 2.1) Left Ear:Type Ad (Complianc e 2.7) Health Concerns Section Related Observation LastModified by Organization Detai ls LastModified Time None Recorded Concern Status LastModified by Organization Details LastModified Time None Recorded Advance Directives Directive None Recorded Payers Insurance Date Sequence Insurance Name Policy Number Policy Munguia Covered Member ID Munguia Member ID Guarantor Name 12/03/2024 2 [place] [facility] Lenin Hardin [id number] Lenin Hardin 11/30/2024 1 MEDIC[place] B-[place]: [employer] Lenin Hardin [id number] Lenin Frappier Notes Date Note Type Note Provider Name and Address Organization Details Recorded Time 11/30/2024 text/html Audiological Evaluation HPIReported by Patient Longstanding SNHL and hearing aid use JOAN GAYLE MA, CCC-A [address] [place] [address], [address], [facility] - [facility] 11/30/2024 10:42:36 11/30/2024 text/html ROS as noted in the HPI He reports he noted a perforated ear drum after feeling a water sensation in his ear in the shower about 4 months ago. He reports the ear feels improved. He uses hearing aids. Has tinnitus on both sides. No current otorrhea. AMY ROCKWELL MD [address] [place] [address], [place], [address], [facility] 11/30/2024 10:59:58
--- OUTSIDE RECORDS SUMMARY | 2025-02-15 12:03 | XMS_ITS | Encounter Summary ---
Author Organization [facility] Address [address] [place] [address] Care Team Providers Care Insurance Marketing Rep Name Role Phone Muna Quiroz Primary Care Provider [phone] Reason for Visit * Reason Onset Date Comments ? lab test 06/19/2022 Encounter Details Date Type Department Care Team (Late st Contact Info) Description 06/19/2022 Telephone [facility] [address] [place] [address] [phone] Telephone Intake, Staff ? lab test Social [...] Tel: Provider: Dr Yocasta Travis call from [facility] - Concerning test listed below, they cannot run this tesst and was wondering if there was another test to replace, [facility] lab is aware that a message was geneva sent to question. Pt is scheduled for follow up 08/04/2022, please advise, ty Auto[facility] Neurology Antibody Comprehensive Panel w/ Reflex, Serum (Order [id number]) documented in this encounter Plan of Treatment Not on file documented as of this encounter Visit Diagnoses Not on filedocumented in this encounter Care Teams Insurance Marketing Rep Relationship Specialty Start Date End Date Muna Quiroz PA [address] [place], [place] [id number] PCP - General 05/28/22 documented as of this encounter
--- OUTSIDE RECORDS SUMMARY | 2025-02-15 12:03 | XMS_ITS | Clinical Summary ---
Author Organization [facility] Address [address] [place] [address] Care Team Providers Care Punch Press Operator Name Role Phone Muna Quiroz Primary Care Provider [phone] Allergies Active Allergy Reactions Criticality Noted Date [...] muscle weakness 05/28/2022 Anemia 05/28/2022 CAD in [place] artery 05/28/2022 Campylobacter diarrhea 05/28/2022 Cardiomyopathy 05/28/2022 [...] Team Description 01/12/2025 [facility] Clinical Specialty [facility] [address] [place] [phone] Linda Romero RPh from Last 3 Months [...] - 1-dose 75+ series) 2049 Insurance MEDICARE [facility] Care Teams Punch Press Operator Relationship Specialty Start Date End Date Muna Quiroz PA [address] [place] [address] PCP - General 05/28/22
--- OUTSIDE RECORDS SUMMARY | 2025-02-15 12:03 | XMS_ITS | Encounter Summary ---
Author Organization [facility] Address [address] [place] [address] Care Team Providers Care Public Relations Analyst Name Role Phone Bob Benitez MD Primary Care Provider [phone] Encounter Details Date Type Department Care Team (Late st Contact Info) Description 07/29/2018 Scanned Document [facility] [address] [place] [address] [phone] Beth Ponce MD Social History Tobacco Use [...] on filedocumented in this encounter Care Teams Public Relations Analyst Relationship Specialty Start Date End Date Bob Benitez MD [address] [facility] - Attn: [facility] [place] [address] PCP - General 01/20/18 documented as of this encounter
--- OUTSIDE RECORDS SUMMARY | 2025-02-15 12:03 | XMS_ITS | Clinical Summary ---
Author Organization [facility] Address [address] [place] [address] Care Team Providers Care Bread Supervisor Name Role Phone Bob Benitez MD Primary Care Provider [phone] Allergies Active Allergy Reactions Criticality Noted Date [...] 07/02/2020 Insurance MEDICARE PART A & B [facility] Care Teams Bread Supervisor Relationship Specialty Start Date End Date Bob Benitez MD [address] [place] [address] - Attn: [facility] [place] [address] PCP - General 01/20/18
== END 2025-02-15 10:28 | disposition home or self-care (01) ==
LOC: HO.HOS 10:04
PROVIDERS: PCP Student in an Organized Health Care Education/Training Program; Visit Provider Orthopaedic Surgery
DX: M17.11 Unilateral primary osteoarthritis, right knee (principal)
CPT/HCPCS: 99213; G2211

== ENCOUNTER → 2025-02-15 10:04 | Outpatient (BNVA) | payer MEDICARE, MEDICAID, SELFPAY | PROVIDERS: PCP Student in an Organized Health Care Education/Training Program; Visit Provider Orthopaedic Surgery | DX: M17.11 Unilateral primary osteoarthritis, right knee (principal) | CPT/HCPCS: 99212 ==

== ENCOUNTER 2025-04-17 10:38 | Outpatient (AMB) | payer MEDICARE, MEDICAID, SELFPAY ==
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
--- OUTSIDE RECORDS SUMMARY | 2025-04-17 13:30 | XMS_ITS | Clinical Summary ---
Author Organization [facility] Address [address] [place] [address] Care Team Providers Care Steel Spar Operator Name Role Phone Muna Quiroz Primary Care Provider [phone] Allergies Active Allergy Reactions Criticality Noted Date [...] total) every 30 days. 3 mL 1 02/28/20 25 11:05 PM EDT 025 Active Active Problems Problem Noted Date Diagnosed Date Bilateral occipital neuralgia 06/18/2022 Abnormal gait due to muscle weakness 05/28/2022 Anemia 05/28/2022 CAD in [place] artery 05/28/2022 Campylobacter diarrhea 05/28/2022 Cardiomyopathy 05/28/2022 [...] of 2) 2024 02/01/2019 Influenza Vaccine (#1) 2024 , 02/18/2022, 02/18/2022, Additional history exists COVID-19 Vaccine (6 - 2024-2 6 season) 2025 02/18/2022, 07/24/2021, 02/25/2021, Additional history exists DTaP,Tdap,and Td Vaccines (2 - Td or Tdap) 08/13/2032 08/13/2022 Insurance MEDICARE [facility] Care Teams Steel Spar Operator Relationship Specialty Start Date End Date Muna Quiroz PA [address] [place] [address] PCP - General 05/28/22
--- OUTSIDE RECORDS SUMMARY | 2025-04-17 13:30 | XMS_ITS | Clinical Summary ---
Author Organization [facility] Address [address] [place] [address] Care Team Providers Care Creative Writing Professor Name Role Phone Bob Benitez MD Primary Care Provider [phone] Allergies Active Allergy Reactions Criticality Noted Date [...] 50+ (1 of 1 - PCV) 2024 RSV Vaccine 50 years and old er and Patients (1 - Risk 50-74 years 1-dose series) 2024 Zoster (Shingles) Vaccine (1 of 2) 2024 Influenza Vaccine 12/01/2024 01/14/2021, , 02/01/2019 COVID-19 Vaccine ( season) 2025 02/25/2021, 07/30/2020, 07/02/2020 Insurance MEDICARE PART A & B [facility] Care Teams Creative Writing Professor Relationship Specialty Start Date End Date Bob Benitez MD [address] [place] [address] - [facility] [place] [address] PCP - General 01/20/18
--- OUTSIDE RECORDS SUMMARY | 2025-04-17 13:30 | XMS_ITS | Encounter Summary ---
Author Organization [facility] Address [address] [place] [address] Care Team Providers Care Service Order Expediter Name Role Phone Muna Quiroz Primary Care Provider [phone] Reason for Visit * Reason Onset Date Comments ? lab test 06/19/2022 Encounter Details Date Type Department Care Team (Late st Contact Info) Description 06/19/2022 Telephone [facility] [address] [place] [address] [phone] Telephone Intake, Staff ? lab test Social [...] Tel: Provider: Dr Yocasta Travis call from [facility] - Concerning test listed below, they cannot run this tesst and was wondering if there was another test to replace, [facility] lab is aware that a message was [place] sent to question. Pt is scheduled for follow up 08/04/2022, please advise, ty Autoimmune Neurology Antibody Comprehensive Panel w/ Reflex, Serum (Order [id number]) documented in this encounter Plan of Treatment Not on file documented as of this encounter Visit Diagnoses Not on filedocumented in this encounter Care Teams Service Order Expediter Relationship Specialty Start Date End Date Muna Quiroz PA [address] [place], [place] [address] PCP - General 05/28/22 documented as of this encounter
--- OUTSIDE RECORDS SUMMARY | 2025-04-17 13:30 | XMS_ITS | Encounter Summary ---
Author Organization [facility] Address [address] [place] [address] Care Team Providers Care Ultrasound Specialist Name Role Phone Bob Benitez MD Primary Care Provider [phone] Encounter Details Date Type Department Care Team (Late st Contact Info) Description 07/29/2018 Scanned Document [facility] Neuro[facility] [address] [place] [address] [place] [phone] Beth Ponce MD Social History Tobacco Use [...] on filedocumented in this encounter Care Teams Ultrasound Specialist Relationship Specialty Start Date End Date Bob Benitez MD [address] [facility] - Attn: [facility] [place] [address] PCP - General 01/20/18 documented as of this encounter
--- OUTSIDE RECORDS SUMMARY | 2025-04-17 13:30 | XMS_ITS | Clinical Summary ---
Author Organization [facility] Address [address] [place] [address] Phone Care Team Providers Care Pilot Plant Operator Name Role Phone Muna Lyle Primary Care [...] mouth 1 (one) time each day. Active baclofen (LIORESAL) 20 mg tablet Take [...] Upcoming Encounters Date Type Department Care Team ([facility] st Contact Info) Description 04/24/2025 1:30 PM EST Office Visit Orthopedic Surgery - [place] [facility] [address] [place] [address] Lulu Gutierrez MD [address] [facility] [address] [place] [address] Health Maintenance Due Date Last Done Comments [...] of 2) 2024 02/01/2019 COVID-19 Vaccine ( season) 2025 02/16/2023, 02/18/2022, 07/24/2021, Additional history [...] Insurance [place] - [place]ARE Care Teams Pilot Plant Operator Relationship Specialty Start Date End Date Muna Lyle PA [address] [place] [id number] PCP - General 07/04/24
--- OUTSIDE RECORDS SUMMARY | 2025-04-17 13:30 | XMS_ITS | Encounter Summary ---
Author Organization [facility] Address [address] [place] [address] Care Team Providers Care Knowledge Management Consultant Name Role Phone Bob Benitez MD Primary Care Provider [phone] Encounter Details Date Type Department Care Team (Late st Contact Info) Description 03/04/2018 Scanned Document [facility] [address] [place] [phone] Beth Ponce MD Social History Tobacco Use [...] on filedocumented in this encounter Care Teams Knowledge Management Consultant Relationship Specialty Start Date End Date Bob Benitez MD [address] [place] [address] - Attn: [facility] [place], [place] [phone] PCP - General 01/20/18 documented as of this encounter
== END 2025-04-17 11:17 | disposition home or self-care (01) ==
LOC: HO.HOP 10:38
PROVIDERS: PCP Student in an Organized Health Care Education/Training Program; Visit Provider Psychiatry & Neurology Psychiatry
DX: F43.12 Post-traumatic stress disorder, chronic (principal); I63.9 Cerebral infarction, unspecified; Z86.79 Personal history of other diseases of the circulatory system; G89.0 Central pain syndrome
CPT/HCPCS: 99214

== ENCOUNTER → 2025-04-17 10:38 | Outpatient (BNVA) | payer MEDICARE, MEDICAID, SELFPAY | PROVIDERS: PCP Student in an Organized Health Care Education/Training Program; Visit Provider Psychiatry & Neurology Psychiatry | DX: F43.12 Post-traumatic stress disorder, chronic (principal); G89.0 Central pain syndrome; I63.9 Cerebral infarction, unspecified; Z86.79 Personal history of other diseases of the circulatory system | CPT/HCPCS: 99212 ==